=== PATIENT | female | born 1955 | race Caucasian/White ===

== ENCOUNTER 2019-06-02 17:59 | Emergency (ER) | payer MEDICARE, OTHER, SELFPAY ==
[2019-06-02 18:28] VITALS: BP 107/64; PULSE 88; RESP 16; TEMP 36.9; O2SAT 100
--- NOTE | 2019-06-02 18:37 | ED.GENADULT ---
HPI - General Adult General Chief complaint: Upper Respiratory Infection Stated complaint: cough headache fever Time Seen by Provider: 06/02/19 18:40 Source: patient Mode of arrival: ambulatory Limitations: no limitations History of Present Illness HPI narrative: This is a 64 years old female presents to office for an evaluation of cold symptoms for five days. Symptoms include cough, scratchy throat, intermittent dizziness when he coughing a lot. Symptoms usually worse at nighttime. She was exposed to strep concern she may have strep. Related Data Home Medications Medication Instructions Recorded Confirmed atorvastatin 20 mg PO DAILY 06/02/19 06/02/19 insulin detemir U-100 [Levemir 40 unit SUBCUT HS 06/02/19 06/02/19 U-100 Insulin] lisinopril 20 mg PO DAILY 06/02/19 06/02/19 meloxicam 15 mg PO DAILY 06/02/19 06/02/19 omeprazole 20 mg PO DAILY 06/02/19 06/02/19 pramipexole 0.125 mg PO HS 06/02/19 06/02/19 venlafaxine 75 mg PO DAILY 06/02/19 06/02/19 Allergies Allergy/AdvReac Type Severity Reaction Status Date / Time latex Allergy Unknown Unknown Verified 06/02/19 18:46 Review of Systems Review of Systems: Narrative: CONSTITUTIONAL: Report tactile fever EYES: Denies visual change ENT: Reports congestion, sore throat. Denies ears pain CARDIOVASCULAR: Denies chest pain, palpitations, edema. RESPIRATORY: Denies dyspnea, wheezing. Reports dry cough With intermittent phlegm GASTROINTESTINAL: Denies abdominal pain, nausea, vomiting, diarrhea. GENITOURINARY: Denies urinary symptoms or discharge SKIN: Denies rash MUSCULOSKELETAL: Denies acute back pain, joint pain, or myalgia. NEUROLOGIC: Denies numbness, or focal weakness. [facility] Past Medical History Medical History (Updated 06/02/19 @ 18:54 by CORAL Betts) Anxiety Diabetes mellitus, type II HLD (hyperlipidemia) HTN (hypertension) HX: breast cancer 2014 Rectal polyp Surgical History Surgical History (Updated 06/02/19 @ 18:39 by CORAL Betts) H/O section Social History Social History Smoking status: Never smoker Comments At time of signature, I agree with nursing past medical, surgical, social and family history. There is no relevant family history pertinent to the presenting complaint. Exam Narrative: Exam Narrative: GENERAL: This is a well-nourished, well-developed patient, in no apparent distress. EYES: Sclera clear/white. Vision is grossly intact. EARS: External ears normal, auditory canals clear and without drainage, TMs normal without perforation. Hearing grossly intact. NOSE: External nose normal with no obvious nasal discharge, nares without redness, no rhinorrhea. THROAT: Mucous membranes moist, posterior pharynx pink with drainage. NECK: Neck supple, non-tender without lymphadenopathy, masses or thyromegaly. CARDIOVASCULAR: Regular rate and rhythm without murmurs, gallops, or rubs. RESPIRATORY: Clear to auscultation;With occasional cough noted during examination. Breath sounds equal bilaterally. No wheezes, rales, or rhonchi. GASTROINTESTINAL: Abdomen soft, non-tender, nondistended. Bowel sounds are active. No hepato-splenomegaly, or palpable masses. No guarding. SKIN: warm, intact with no suspicious lesions or rash, good texture and turgor. NEURO: awake, alert, and oriented to person, place and time. There were no obvious focal neurologic abnormalities. Steady gait Radha Coma Scale Eye Opening: Spontaneous 4 [place] Coma Scale Motor: Obeys Commands 6 Radha Coma Scale Verbal: Oriented 5 Course Vital Signs Vital signs: Vital Signs Temperature 98.4 F 06/02/19 18:28 Pulse Rate 88 06/02/19 18:28 Respiratory Rate 16 06/02/19 18:28 Blood Pressure 107/64 06/02/19 18:28 Pulse Oximetry 100 06/02/19 18:28 Temperature 98.4 F 06/02/19 18:28 Pulse Rate 88 06/02/19 18:28 Respiratory Rate 16 06/02/19 18:28 Blood Pressure 107/
== END 2019-06-02 18:55 | disposition home or self-care (01) ==
PROVIDERS: Emergency Provider Nurse Practitioner; PCP Internal Medicine
DX: J06.9 Acute upper respiratory infection, unspecified (principal); F41.9 Anxiety disorder, unspecified; E11.9 Type 2 diabetes mellitus without complications; E78.5 Hyperlipidemia, unspecified; I10 Essential (primary) hypertension; Z85.3 Personal history of malignant neoplasm of breast
CPT/HCPCS: 87081; 87880; 99213; G0463

== ENCOUNTER 2022-01-10 16:47 | Emergency (ER) | payer MEDICARE, OTHER, SELFPAY ==
[2022-01-10 16:55] VITALS: BP 124/70; PULSE 90; RESP 16; TEMP 37.7; O2SAT 100
--- NOTE | 2022-01-10 17:21 | ED_ITS ---
HPI - Wound/Laceration General Chief Complaint: Upper Respiratory Infection Stated Complaint: Cough/Sore Throat Related Data Home Medications Medication Instructions Recorded Confirmed atorvastatin 20 mg tablet 20 mg PO DAILY 06/02/19 06/02/19 insulin detemir U-100 100 unit/mL 40 unit subcut 06/02/19 06/02/19 subcutaneous solution (Levemir U-100 Insulin) lisinopril 20 mg tablet 20 mg PO DAILY 06/02/19 06/02/19 meloxicam 15 mg tablet 15 mg PO DAILY 06/02/19 06/02/19 omeprazole 20 mg tablet,delayed 20 mg PO DAILY 06/02/19 06/02/19 release pramipexole 0.125 mg tablet 0.125 mg PO HS 06/02/19 06/02/19 venlafaxine 75 mg tablet,extended 75 mg PO DAILY 06/02/19 06/02/19 release 24 hr Allergies Allergy/AdvReac Type Severity Reaction Status Date / Time latex Allergy Unknown Unknown Verified 01/10/22 17:07 [facility] Past Medical History Medical History (Updated 06/03/19 @ 00:00 by Tara Mack) Anxiety Diabetes mellitus, type II HLD (hyperlipidemia) HTN (hypertension) HX: breast cancer 2014 Rectal polyp Surgical History Surgical History (Updated 06/02/19 @ 18:39 by CORAL Betts) H/O section Social History Social History Smoking status: Never smoker Course Vital Signs Vital signs: Vital Signs Temperature 99.8 F H 01/10/22 16:55 Pulse Rate 90 01/10/22 16:55 Respiratory Rate 16 01/10/22 16:55 Blood Pressure 124/70 01/10/22 16:55 Pulse Oximetry 100 01/10/22 16:55 Oxygen Delivery Room Air 01/10/22 16:55 Temperature 99.8 F H 01/10/22 16:55 Pulse Rate 90 01/10/22 16:55 Respiratory Rate 16 01/10/22 16:55 Blood Pressure 124/70 01/10/22 16:55 Pulse Oximetry 100 01/10/22 16:55 Oxygen Delivery Room Air 01/10/22 16:55 Discharge Plan Discharge Prescriptions: No Action atorvastatin 20 mg Tablet 20 mg PO DAILY meloxicam 15 mg Tablet 15 mg PO DAILY lisinopril 20 mg Tablet 20 mg PO DAILY Levemir U-100 Insulin 100 unit/mL Solution 40 unit SUBCUT HS pramipexole 0.125 mg Tablet 0.125 mg PO HS omeprazole 20 mg Tablet,Delayed Release (Dr/Ec) 20 mg PO DAILY venlafaxine 75 mg Tablet Extended Release 24hr 75 mg PO DAILY albuterol sulfate [ProAir HFA] 90 mcg/actuation HFA aerosol inhaler 1 puff INHALATION Q3-4H PRN (Reason: shortness of breath or wheezing) Qty: 18 0RF promethazine-DM 6.25-15 mg/5 mL syrup 5 ml PO Q4-6H PRN (Reason: cough) Qty: 120 0RF Follow-up/Referrals: Vito,MD Peter [Primary Care Provider] -
--- NOTE | 2022-01-10 17:30 | ED.URI ---
HPI - URI/Sore Throat General Chief Complaint: Upper Respiratory Infection Stated Complaint: Cough/Sore Throat Time Seen by Provider: 01/10/22 17:30 Source: patient and RN notes reviewed Mode of arrival: ambulatory Limitations: no limitations History of Present Illness HPI Narrative: 66-year-old female presents with concern for 10-day history of cough. Reports she has been coughing hard enough that is causing her throat to hurt. He she reports she has had been having allergy symptoms for approximately 10 days as well with stuffy nose and runny nose. Reports she has been taking allergy medication with no relief. She denies known sick contacts, fever, body aches, chills, sweats, shortness of breath MD elicited complaint: cough and sore throat Related Data Home Medications Medication Instructions Recorded Confirmed atorvastatin 20 mg tablet 20 mg PO DAILY 06/02/19 06/02/19 insulin detemir U-100 100 unit/mL 40 unit subcut HS 06/02/19 06/02/19 subcutaneous solution (Levemir U-100 Insulin) lisinopril 20 mg tablet 20 mg PO DAILY 06/02/19 06/02/19 meloxicam 15 mg tablet 15 mg PO DAILY 06/02/19 06/02/19 omeprazole 20 mg tablet,delayed 20 mg PO DAILY 06/02/19 06/02/19 release pramipexole 0.125 mg tablet 0.125 mg PO HS 06/02/19 06/02/19 venlafaxine 75 mg tablet,extended 75 mg PO DAILY 06/02/19 06/02/19 release 24 hr Allergies Allergy/AdvReac Type Severity Reaction Status Date / Time latex Allergy Unknown Unknown Verified 01/10/22 17:07 Review of Systems Review of Systems: CONSTITUTIONAL: Denies malaise, chills, sweats, or fever. EYES: Denies visual changes, redness, or discharge. ENT: Reports rhinorrhea, congestion, and sore throat. CARDIOVASCULAR: Denies chest pain, palpitations, or edema. RESPIRATORY: Reports persistent cough. Denies dyspnea. GASTROINTESTINAL: Denies abdominal pain, nausea, vomiting, diarrhea SKIN: Denies rash or itching. MUSCULOSKELETAL: Denies myalgia. NEUROLOGIC: Denies headache. All systems reviewed & are unremarkable except as noted in HPI and below PMFSH Past Medical History Medical History (Updated 01/10/22 @ 17:38 by Britney Larsen NP) Anxiety Diabetes mellitus, type II HLD (hyperlipidemia) HTN (hypertension) HX: breast cancer 2014 Rectal polyp Surgical History Surgical History (Updated 06/02/19 @ 18:39 by CORAL Betts) H/O section Social History Social History Smoking status: Never smoker Comments At time of signature, agree with nursing past medical, surgical, social and family history. There is no relevant family history pertinent to the presenting complaint Exam Narrative: GENERAL: Well-appearing, well-nourished, and in no acute distress. HEAD: Normocephalic EYES: PERRLA, conjunctivae clear ENT: Nares clear, turbinates edematous and erythematous. Mucous membranes moist. TM pearly gregg with dull light reflex bilaterally; no tragal tenderness. Oropharynx not erythematous without lesions. Tonsils not enlarged and without exudate, no drooling, no hoarseness, no trismus, uvula midline. NECK: Supple. No lymphadenopathy CHEST: Clear to auscultation, breath sounds equal. No wheezing, rhonchi, rales, or stridor. No respiratory distress, speaks in full sentences. Cough noted HEART: Regular rate and rhythm. No murmur heard. SKIN: Warm, dry, no rash. NEURO: Alert and oriented x3. PSYCH: Normal mood and affect Course Course Emergency Course: Patient is aware of diagnosis, understands and agrees to treatment plan. Anticipatory guidance given. Patient agrees to follow-up as directed and is aware of reasons to seek care at the emergency department. Portions of this record may have been created with voice recognition software Level of Care: Express Care Visit Vital Signs Vital signs: Vital Signs Temperature 99.8 F H 01/10/22 16:55 Pulse Rate 90 01/10/22 16:55 Respiratory Rate 16
== END 2022-01-10 17:48 | disposition home or self-care (01) ==
PROVIDERS: Emergency Provider Nurse Practitioner; PCP Internal Medicine
DX: J40 Bronchitis, not specified as acute or chronic (principal); E11.9 Type 2 diabetes mellitus without complications; E78.5 Hyperlipidemia, unspecified; I10 Essential (primary) hypertension; Z85.3 Personal history of malignant neoplasm of breast; F41.9 Anxiety disorder, unspecified; Z79.84 Long term (current) use of oral hypoglycemic drugs
CPT/HCPCS: 99213; G0463

== ENCOUNTER 2022-06-30 13:59 | Emergency (ER) | payer MEDICARE, OTHER, SELFPAY ==
[2022-06-30 14:07] VITALS: BP 136/60; PULSE 88; RESP 16; TEMP 37; O2SAT 100
[2022-06-30 14:13] VITALS: BP 136/60; PULSE 88; RESP 16; TEMP 37; O2SAT 100
--- NOTE | 2022-06-30 14:18 | ED.GENADULT ---
HPI - General Adult General Chief complaint: Back Pain/Injury Stated complaint: Back Pain Source: patient and RN notes reviewed History of Present Illness HPI narrative: 67-year-old female presents urgent care with at side. Patient states she has significant right lower back pain since Saturday. Denies any significant injury or cause for her back pain. Patient is concerned about possible kidney stone. Denies any leg pain, abdominal pain, nausea, vomiting, fevers, chills, incontinence of urine or stool, saddle anesthesia, or dysuria. Patient states she has Holter pain more with bending down or getting into the car. Patient is taking extra-strength with no relief. Some parts of this dictation were generated by voice recognition software and may contain typographical and/or grammatical inaccuracies. Related Data Home Medications Medication Instructions Recorded Confirmed atorvastatin 20 mg tablet 20 mg PO DAILY 06/02/19 06/30/22 lisinopril 20 mg tablet 20 mg PO DAILY 06/02/19 06/30/22 omeprazole 20 mg tablet,delayed 20 mg PO DAILY 06/02/19 06/30/22 release pramipexole 0.125 mg tablet 0.125 mg PO HS 06/02/19 06/30/22 venlafaxine 75 mg tablet,extended 75 mg PO DAILY 06/02/19 06/30/22 release 24 hr insulin degludec 100 See Rx Instructions .Route .COMPLEX 06/30/22 06/30/22 unit-liraglutide 3.6 mg/mL(3 mL) subcutaneous pen (Xultophy 100/3.6) Allergies Allergy/AdvReac Type Severity Reaction Status Date / Time latex Allergy Unknown Unknown Verified 06/30/22 14:09 Review of Systems Review of Systems: CONSTITUTIONAL: Denies fever, chills, or sweats. EYES: Denies visual changes, redness, or discharge. ENT: Denies otalgia and sore throat CARDIOVASCULAR: Denies chest pain, palpitations, or edema. RESPIRATORY: Denies cough or dyspnea. GASTROINTESTINAL: Denies abdominal pain, nausea, vomiting, or diarrhea. GENITOURINARY: Denies dysuria or hematuria. SKIN: Denies rash or itching. MUSCULOSKELETAL: Right lower back pain NEUROLOGIC: Denies headache, numbness, or weakness. [facility] Past Medical History Medical History (Updated 06/30/22 @ 14:28 by Mildred Meredith APRN) Anxiety Diabetes mellitus, type II HLD (hyperlipidemia) HTN (hypertension) HX: breast cancer 2014 Rectal polyp Surgical History Surgical History (Updated 06/02/19 @ 18:39 by CORAL Betts) H/O section Social History Social History Smoking status: Never smoker Comments At the time of my signature, I reviewed and agree with the nursing past medical, surgical, social, and family history. There is no relevant family history pertinent to the patient complaint. Exam Narrative: GENERAL: This is a well-nourished, well-developed patient, in no apparent distress. HEAD: normocephalic, atraumatic. EYES: PERRL. Sclera clear/white. Vision is grossly intact. EARS: External ears normal, auditory canals clear and without drainage, TMs normal without perforation. Hearing grossly intact. NOSE: External nose normal with no obvious nasal discharge, nares without redness, no rhinorrhea. THROAT: Mucous membranes moist, posterior pharynx clear. NECK: Neck supple, non-tender without lymphadenopathy, masses or thyromegaly. CARDIOVASCULAR: Regular rate and rhythm without murmurs, gallops, or rubs. RESPIRATORY: Clear to auscultation. Breath sounds equal bilaterally. No wheezes, rales, or rhonchi. GASTROINTESTINAL: Abdomen soft, non-tender, nondistended. Bowel sounds are active. No hepato-splenomegaly, or palpable masses. No guarding. SKIN: warm, intact with no suspicious lesions or rash, good texture and turgor. NEURO: awake, alert, and oriented to person, place and time. There were no obvious focal neurologic abnormalities. EXTREMITIES: No clubbing, cyanosis, or edema. No joint tenderness, effusion, or edema noted. BACK: Nontender without deformity or crepitance. No flank tenderness. C
== END 2022-06-30 14:30 | disposition home or self-care (01) ==
PROVIDERS: Emergency Provider Nurse Practitioner Family; PCP Internal Medicine
DX: S39.012A Strain of muscle, fascia and tendon of lower back, initial encounter (principal); E11.9 Type 2 diabetes mellitus without complications; E78.5 Hyperlipidemia, unspecified; I10 Essential (primary) hypertension; Z79.4 Long term (current) use of insulin; Z85.3 Personal history of malignant neoplasm of breast; X58.XXXA Exposure to other specified factors, initial encounter
CPT/HCPCS: 81003; 99213; G0463

== ENCOUNTER 2022-12-24 14:33 | Emergency (ER) | payer MEDICARE, OTHER, SELFPAY ==
[2022-12-24 14:42] VITALS: BP 110/70; PULSE 93; RESP 20; TEMP 36.7; O2SAT 100
--- NOTE | 2022-12-24 14:47 | ED.EYEPROB ---
HPI - Eye Problem General Chief complaint: Eye Problems Stated complaint: Left Eye Problem Source: patient and RN notes reviewed History of Present Illness HPI Narrative: 67 yo F presents to urgent care with complaints of left eye irritation and swelling. Pt states she has been having left lower lid redness for the last few days and today woke up with swelling under her left eye. Pt thought it was a stye at first. Pt reports some blurry vision in that eye. Denies any pain with EOM, fevers, chills, drainage from the eye. Does not wear contacts. Related Data Home Medications Medication Instructions Recorded Confirmed lisinopril 20 mg tablet 20 mg PO DAILY 06/02/19 12/24/22 omeprazole 20 mg tablet,delayed 20 mg PO DAILY 06/02/19 12/24/22 release venlafaxine 75 mg tablet,extended 75 mg PO DAILY 06/02/19 12/24/22 release 24 hr insulin degludec 100 See Rx Instructions .Route .COMPLEX 06/30/22 12/24/22 unit-liraglutide 3.6 mg/mL(3 mL) subcutaneous pen (Xultophy 100/3.6) meloxicam 15 mg tablet 15 mg PO DAILY 12/24/22 12/24/22 Allergies Allergy/AdvReac Type Severity Reaction Status Date / Time latex Allergy Unknown Unknown Verified 06/30/22 14:09 Review of Systems Review of Systems: CONSTITUTIONAL: Denies fever, chills, or sweats. EYES: Left eye irritation ENT: Denies otalgia and sore throat CARDIOVASCULAR: Denies chest pain, palpitations, or edema. RESPIRATORY: Denies cough or dyspnea. GASTROINTESTINAL: Denies abdominal pain, nausea, vomiting, or diarrhea. GENITOURINARY: Denies dysuria or hematuria. SKIN: Denies rash or itching. MUSCULOSKELETAL: Denies back pain, joint pain, or myalgia. NEUROLOGIC: Denies headache, numbness, or weakness. Pertinent positives per HPI. [facility] Past Medical History Medical History (Updated 12/24/22 @ 15:00 by Mildred Meredith APRN) Anxiety Diabetes mellitus, type II HLD (hyperlipidemia) HTN (hypertension) HX: breast cancer 2014 Rectal polyp Surgical History Surgical History (Updated 06/02/19 @ 18:39 by CORAL Betts) H/O section Social History Social History Smoking status: Never smoker Comments At the time of my signature, I reviewed and agree with the nursing past medical, surgical, social, and family history. There is no relevant family history pertinent to the patient complaint. Exam Narrative: GENERAL: This is a well-nourished, well-developed patient, in no apparent distress. HEAD: normocephalic, atraumatic. EYES: Sclera clear/white. Left lowe conjunctiva injected and lower lid slightly edematous and erythremic. Lower, left sided, periorbital swelling. EARS: External ears normal, auditory canals clear and without drainage, TMs normal without perforation. Hearing grossly intact. NOSE: External nose normal with no obvious nasal discharge, nares without redness, no rhinorrhea. THROAT: Mucous membranes moist, posterior pharynx clear. NECK: Neck supple, non-tender without lymphadenopathy, masses or thyromegaly. CARDIOVASCULAR: Regular rate RESPIRATORY: No respiratory distress SKIN: warm, intact with no suspicious lesions or rash, good texture and turgor. NEURO: awake, alert, and oriented to person, place and time. There were no obvious focal neurologic abnormalities. Course Course Level of Care: Express Care Visit Vital Signs Vital signs: Reviewed MDM - Eye Problem MDM Narrative Medical decision making narrative: You have been given a prescription for eye ointment. Use the eye ointment as instructed. If you are not better in two (2) days, you need to follow up with an occupational therapy supervisor. Do not rub the eye or put anything else in the eye, this can cause abrasions (scratches) on the eye or lead to vision loss. Also it is important not to touch the tube or tip of ointment to the eye, as this can cause further infection. Wash your hands very well before instilling th
== END 2022-12-24 15:04 | disposition home or self-care (01) ==
PROVIDERS: Emergency Provider Nurse Practitioner Family; PCP Internal Medicine
DX: H01.005 Unspecified blepharitis left lower eyelid (principal); E11.9 Type 2 diabetes mellitus without complications; Z79.4 Long term (current) use of insulin; E78.5 Hyperlipidemia, unspecified; I10 Essential (primary) hypertension; Z85.3 Personal history of malignant neoplasm of breast; F41.9 Anxiety disorder, unspecified
CPT/HCPCS: 99213; G0463

== ENCOUNTER 2023-11-04 16:08 | Emergency (ER) | payer MEDICARE, OTHER, SELFPAY ==
[2023-11-04 16:15] VITALS: BP 121/63; PULSE 80; RESP 20; TEMP 36.8; O2SAT 100
--- NOTE | 2023-11-04 16:21 | ED.URI ---
HPI - URI/Sore Throat General Chief Complaint: Upper Respiratory Infection Stated Complaint: Cough Time Seen by Provider: 11/04/23 16:28 Source: patient, RN notes reviewed and old records reviewed Mode of arrival: ambulatory Limitations: no limitations History of Present Illness HPI Narrative: 68-year-old female presents to the [facility] with complaints of a cough that started on the 29 of October, 5 days ago. Patient reports that she took 1 dose of Benadryl and it did not help. Took 2 sinus pills which has not helped her symptoms. Still having a cough, congestion, scratchy throat. Onset (ago): day(s) (5) Related Data Home Medications Medication Instructions Recorded Confirmed omeprazole 20 mg tablet,delayed 20 mg PO DAILY 06/02/19 11/04/23 release insulin degludec 100 See Rx Instructions .Route .COMPLEX 06/30/22 11/04/23 unit-liraglutide 3.6 mg/mL(3 mL) subcutaneous pen (Xultophy 100/3.6) ezetimibe 10 mg tablet 10 mg PO DAILY 11/04/23 11/04/23 lisinopril 5 mg tablet 5 mg PO DAILY 11/04/23 11/04/23 venlafaxine 37.5 mg 37.5 mg PO DAILY 11/04/23 11/04/23 capsule,extended release 24 hr Allergies Allergy/AdvReac Type Severity Reaction Status Date / Time latex Allergy Unknown Unknown Verified 11/04/23 16:24 Review of Systems Review of Systems: All systems reviewed & are unremarkable except as noted in HPI and below Constitutional: Constitutional: Reports as per HPI Eyes: Eyes: Reports no additional eye complaints ENT: Reports as per HPI Cardiovascular: Cardiovascular: Reports no additional cardiovascular complaints, Denies chest pain and Denies dyspnea Respiratory: Respiratory: Reports as per HPI, Denies chest congestion, Reports cough and Denies dyspnea Gastrointestinal: Gastrointestinal: Reports no additional gastrointestinal complaints, Denies abdominal pain, Denies nausea and Denies vomiting Musculoskeletal: Musculoskeletal: Reports no additional musculoskeletal complaints Integumentary/Breasts: Skin/Breast: Reports system reviewed and no additional complaints, except as docu Neurologic: Reports system reviewed and no additional complaints, except as documented Psychiatric: Psychiatric: Reports no additional psychiatric complaints Allergic/Immunologic: Allergic/Immunologic: Reports no additional allergic/immunologic complaints PMFSH Past Medical History Medical History (Updated 11/05/23 @ 00:00 by Tara Mack) Anxiety Diabetes mellitus, type II HLD (hyperlipidemia) HTN (hypertension) HX: breast cancer 2014 Rectal polyp Surgical History Surgical History (Updated 06/02/19 @ 18:39 by CORAL Betts) H/O section Social History Social History Smoking status: Never smoker Comments At the time of my signature, I reviewed and agree with the nursing past medical, surgical, social, and family history. There is no relevant family history pertinent to the patient complaint. Exam Const: General: cooperative, healthy appearing, comfortable, no acute distress, well developed, alert and well nourished Nutritional Appearance: well nourished Orientation/consciousness: patient oriented x3 Limitations: no limitations HENMT: Head: normal to inspection Ears: hearing grossly normal bilaterally, external ears normal, TM's normal bilaterally, EAC's normal, mastoids normal and no periauricular adenopathy Face/Nose/Sinus: Normal external nose present, Normal nares present, Normal nasal mucous membranes and turbinates present, normal facial exam and face symmetric Face and sinus: normal facial exam and face symmetric Throat: posterior oropharynx normal, uvula midline, postnasal drainage and no uvular edema Eyes: General: appearance normal, both eyes and all related structures Alignment and Position: alignment normal Periorbital: periorbital findings normal Pupils: Equal, round and reactive pupils present EOM: EOMs intact
[2023-11-04 16:59] LABS: EDINFLUASCREEN Negative; EDINFLUBSCREEN Negative
== END 2023-11-04 17:02 | disposition home or self-care (01) ==
PROVIDERS: Emergency Provider Nurse Practitioner
DX: U07.1 COVID-19 (principal); R09.82 Postnasal drip; E11.9 Type 2 diabetes mellitus without complications; E78.5 Hyperlipidemia, unspecified; I10 Essential (primary) hypertension; Z85.3 Personal history of malignant neoplasm of breast; F41.9 Anxiety disorder, unspecified
CPT/HCPCS: 87426; 87804; 99213; G0463

== ENCOUNTER 2024-03-30 14:18 | Emergency (ER) | payer MEDICARE, OTHER, SELFPAY ==
--- NOTE | ~2024-03-30 | XR_ITS ---
EXAMINATION: XR chest 2V DATE: 03/30/2024 15:05 INDICATION: Cough. TECHNIQUE: Frontal and lateral views of the chest were obtained. COMPARISON: None. FINDINGS: There is no pneumonia, pleural effusion, or pneumothorax. The heart size is normal. There a re surgical clips in right breast and right axilla. IMPRESSION: 1. No acute cardiopulmonary disease. Reviewed, dictated and finalized at location A. N ART CURATOR
[2024-03-30 14:26] VITALS: BP 122/62; PULSE 90; RESP 20; TEMP 37.1; O2SAT 100
--- NOTE | 2024-03-30 14:44 | ED_ITS ---
HPI - URI/Sore Throat General Chief Complaint: Upper Respiratory Infection Stated Complaint: Cough Source: patient Mode of arrival: ambulatory Limitations: no limitations History of Present Illness HPI Narrative: 69 y/o female presented for c/o cough for one week. Endorses the cough causes rib pain, headaches, pain in throat, and feeling like she might vomit. Otherwise denies any associated symptoms. Related Data Home Medications Medication Instructions Recorded Confirmed omeprazole 20 mg tablet,delayed 20 mg PO DAILY 06/02/19 03/30/24 release insulin degludec 100 See Rx Instructions .Route .COMPLEX 06/30/22 03/30/24 unit-liraglutide 3.6 mg/mL(3 mL) subcutaneous pen (Xultophy 100/3.6) ezetimibe 10 mg tablet 10 mg PO DAILY 11/04/23 03/30/24 lisinopril 5 mg tablet 5 mg PO DAILY 11/04/23 03/30/24 venlafaxine 37.5 mg 37.5 mg PO DAILY 11/04/23 03/30/24 capsule,extended release 24 hr meclizine 12.5 mg tablet 12.5 mg PO TID PRN Vertigo 03/13/24 03/30/24 meloxicam 7.5 mg tablet 7.5 mg PO DAILY 03/13/24 03/30/24 Allergies Allergy/AdvReac Type Severity Reaction Status Date / Time latex Allergy Unknown Unknown Verified 03/30/24 14:28 pravastatin AdvReac Intermediate leg cramps Verified 03/30/24 14:28 Review of Systems Review of Systems: CONSTITUTIONAL: Denies body aches, fever, chills, or sweats. EYES: Denies visual changes, redness, or discharge. ENT: Denies rhinorrhea, congestion, sore throat, or otalgia. CARDIOVASCULAR: Denies chest pain, palpitations, or edema. RESPIRATORY: Reports cough, denies sob, wheezing. GASTROINTESTINAL: Denies abdominal pain, nausea, vomiting, or diarrhea. SKIN: Denies rash MUSCULOSKELETAL: reports rib pain NEUROLOGIC: Denies headache, numbness, tingling, or weakness. All systems reviewed & are unremarkable except as noted in HPI and below PMFSH Past Medical History Medical History Anxiety Diabetes mellitus, type II HLD (hyperlipidemia) HTN (hypertension) HX: breast cancer 2014 Rectal polyp Surgical History Surgical History H/O section H/O lumpectomy Social History Social History Smoking status: Never smoker Second hand tobacco smoke exposure: Yes (As a child) Spiritual care concerns: No Comments At time of signature, I have reviewed and agree with nursing past medical, surgical, social and family history unless otherwise noted. Please see nursing chart for further information. There is no relevant family history pertinent to the presenting complaint Exam Narrative: GENERAL: Well-appearing, in no acute distress. EYES: EOMI. No redness or drainage. Conjunctivae normal. ENT: Mucous membranes pink and moist. No rhinorrhea. TMs normal bilaterally. Throat normal. Uvula midline. NECK: Normal AROM. Supple. CHEST: No respiratory distress. lungs clear to all damon. HEART: Regular rate and rhythm. No murmur appreciated. ABDOMEN: Soft, nontender, nondistended, normal active bowel sounds. EXTREMITIES: Normal range of motion. No edema. SKIN: Warm, dry, no rash. Capillary refill normal. Normal skin turgor. NEURO: Alert and oriented x3. Gait steady. PSYCH: Normal affect. Course Course Emergency Course: Patient is aware of diagnosis, understands and agrees to treatment plan. Anticipatory guidance given. Patient agrees to follow-up as directed and is aw are of reasons to seek care at the emergency department. Portions of this record may have been created with voice recognition software Level of Care: Express Care Visit Vital Signs Vital signs: Vital Signs Temperature 98.8 F 03/30/24 14:26 Pulse Rate 90 03/30/24 14:26 Respiratory Rate 20 03/30/24 14: Blood Pressure 122/62 03/30/24 14:26 Pulse Oximetry 100 03/30/24 14:26 Oxygen Delivery Room Air 03/30/24 14:26 Temperature 98.8 F 03/30/24 14:26 Pulse Rate 90 03/30/24 14:26 Respiratory Rate 20 03/30/24 14:26 Blood Pressure 122/62 03/30/24 14:26 Pulse Oximetry 100 03/30/24 14:26 Oxygen Delivery Room Air 03/30/24 14:26 MDM - URI/Sore Throat MDM Narrative Medical decision making narrative: Discussed physical exam findings and CXR. Advised supportive measures and signs/symptoms to go to the ER. Pt is appropriate for outpt treatment and f/u. Differential Diagnosis Differential diagnosis: Likely upper respiratory infection, sinusitis, viral infection and bronchitis Imaging Data Radiologist's impression: Patient: Nathalie Bhatia : 1955 MR#: [id number] Age: 69 Acct:[id number] Loc: [facility] ADM Date: 03/30/24Attending Dr: Ordering Physician: Cassia Sandoval APRN Date of Service: 03/30/24 Procedure(s): XR chest 2V Accession Number(s): [id number] cc: Cassia Sandoval APRN~ EXAMINATION: XR chest 2V DATE: 03/30/2024 15:05 INDICATION: Cough. TECHNIQUE: Frontal and lateral views of the chest were obtained. COMPARISON: None. FINDINGS: There is no pneumonia, pleural effusion, or pneumothorax. The heart size is normal. There are surgical clips in right breast and right axilla. IMPRESSION: 1. No acute cardiopulmonary disease. Discharge Plan Discharge Clinical Impression: Bronchitis Patient Disposition: Home, Self-Care Condition: Stable Instructions: Antibiotic Form, Acute Bronchitis (ED) Additional Instructions: Acute bronchitis can be contagious because it is usually caused by infection with a virus or bacteria. It is usually for a few days but you can be contagious for up to one week. Avoid crowds until you do not have a fever and symptoms are improved Take medication as directed Recommend Flonase spray and Zyrtec (or Claritin/Rachel) over the counter Cough syrup may cause drowsiness; avoid driving or take it at night time. Tylenol 1000mg every 8 hours as needed for pain Symptomatic treatment includes: rest, fluids, and increase humidity of the air at home. Follow up with your primary care provider as needed in 1 week Go to the ER for worsening symptoms or concerns Prescriptions: New prednisone 20 mg tablet 40 mg PO DAILY 5 Days Qty: 10 0RF benzonatate 200 mg capsule 200 mg PO TID PRN (Reason: cough) Qty: 20 0RF No Action omeprazole 20 mg Tablet,Delayed Release (Dr/Ec) 20 mg PO DAILY lisinopril 5 mg tablet 5 mg PO DAILY ezetimibe 10 mg tablet 10 mg PO DAILY venlafaxine 37.5 mg capsule,extended release 24hr 37.5 mg PO DAILY Xultophy 100/3.6 100 unit-3.6 mg /mL (3 mL) insulin pen See Rx Instructions .ROUTE .COMPLEX Rx Instructions: PRESCRIBED meloxicam 7.5 mg Tablet 7.5 mg PO DAILY meclizine 12.5 mg Tablet 12.5 mg PO TID PRN (Reason: Vertigo) Follow-up/Referrals: PHYSICIAN NOT ON STAFF,NONSTAFF [Primary Care Provider] -
== END 2024-03-30 15:30 | disposition home or self-care (01) ==
PROVIDERS: Emergency Provider Nurse Practitioner Family
DX: J40 Bronchitis, not specified as acute or chronic (principal); E11.9 Type 2 diabetes mellitus without complications; E78.5 Hyperlipidemia, unspecified; I10 Essential (primary) hypertension; Z79.4 Long term (current) use of insulin; Z79.1 Long term (current) use of non-steroidal anti-inflammatories (NSAID)
CPT/HCPCS: 71046; 99213; G0463

== ENCOUNTER 2024-05-29 15:55 | Emergency (ER) | payer MEDICARE, OTHER, SELFPAY ==
--- OUTSIDE RECORDS SUMMARY | 2024-05-29 15:58 | XMS_ITS | Clinical Summary ---
Author Organization [facility] [employer] Address [address] [place] [address] Care Team Providers Care Maternal Fetal Physician Name Role Phone Peter Padron MD Primary Care Provider [phone] Source Comments [facility],non-owned Affiliates and Associated Physician Practices is amultiple site organization consisting of ambulatory clinics and hospital sitesin [place], [place], [place] and [place]. This disclosure is being madepursuant to the Care Everywhere program and may not contain all information available regarding this patient. Last updated 18.[facility] Allergies No known active allergies Medications * Be aware that medications may not be up to date on this document. Alwaysverify current medications with the patient. Medication Sig Dispensed Refills Start Date End Date Status insulin glargine (LANTUS) injection Inject 45 Units subcutaneously at bedtime. Active rosuvastatin (CRESTOR) 40 MG tablet Take 40 mg by mouth once daily. Active omeprazole (PRILOSEC OTC) 20 MG tablet Take 20 mg by mouth daily before breakfast. Active solifenacin (VESICARE) 5 MG tablet Take 5 mg by mouth once daily. Active escitalopram (LEXAPRO) 20 MG tablet Take 20 mg by mouth once daily. Active LISINOPRIL PO Take 10 mg by mouth. A ctive cefUROXime (CEFTIN) 500 MG tablet Take 500 mg by mouth every 12 hours. Active Family History Medical History Relation Name Comments Arthritis - Rheumatoid Mother Hypertension Mother Migraine Sister 2 Relation Name Status Comments Brother Alive Father Alive Mother Alive Sister 1 Alive Sister 2 Social History Tobacco Use Types Packs/Day Years Used Date Smoking Tobacco: Never Alcohol Use Standard Drinks/Week Comments No 0 (1 standard drink = 0.6 oz pur e alcohol) Sex and Gender Information Value Date Recorded Sex Assigned at Not on file Gender Identity Not on file Sexual Orientation Not on file Last Filed Vital Signs Vital Sign Reading Time Taken Comments Blood Pressure - - Pulse - - Temperature - - Respiratory Rate - - Oxygen Saturation - - Inhaled Oxygen Concentration - - Weight 74.8 kg (165 lb) 05/12/2012 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 Height 154.9 cm (5' 1 ) 05/12/2012 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 Body Mass Index 31.18 05/12/2012 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 Plan of Treatment Health Maintenance Due Date Last Done Comments BONE DENSITY TESTING 1955 COLOGUARD (AGES 45-75) - COL ON CA SCREENING 1955 COLON MONITORING 1955 COLONOSCOPY - COLON CA SCREENING 1955 CT COLONOGRAPHY - COLON CA SCREENING 1955 Colorectal Cancer Screening 1955 FIT - COLON CA SCREENING 1955 FLEX SIG - COLON CA SCREENING 1955 MAMMOGRAM 1955 HEPATITIS C SCREENING 01/29/1971 DTAP/TDAP/TD VACCINES (1 - Tdap) 02/03/1972 PNEUMOCOCCAL VACCINE 50+ (1 of 1 - PCV) 2003 ZOSTER VACCINE (1 of 2) 2003 COVID-19 VACCINE ( - 2023-2 5 season) 2023 INFLUENZA VACCINE (#1) 2023 DEPRESSION SCREENING 04/29/2024 Respiratory Syncytial Virus (RSV) Vaccine Pt: or over 60 yrs (1 - 1-dose 75+ series) 02/03/2028 HEPATITIS B VACCINE Aged Out No longe r eligible based on patient's age to complete this topic HIB VACCINE Aged Out No longer eligi ble based on patient's age to complete this topic HPV VACCINE Aged Out No longer eligi ble based on patient's age to complete this topic MENINGOCOCCAL (Group B) VACCINE Aged Out No longer eligible based on patient's age to complete this topic MENINGOCOCCAL VACCINE Aged Out No rodríguez isabel eligible based on patient's age to complete this topic Care Teams Maternal Fetal Physician Relationship Specialty Start Date End Date Peter Padron MD PCP - General Internal Medicine 01/25/12
--- OUTSIDE RECORDS SUMMARY | 2024-05-29 15:58 | XMS_ITS | Referral Summary ---
Author Organization [facility] [employer] Address [address] [place] [address] Care Team Providers Care Medical Assistant Cardiology Name Role Phone Peter Padron MD Primary Care Provider [phone] Source Comments [facility] [employer],non-owned Affiliates and Associated Physician Practices is amultiple site organization consisting of ambulatory clinics and hospital sitesin [place], [place], [place] and [place]. This disclosure is being madepursuant to the Care Everywhere program and may not contain all information available regarding this patient. Last updated 18[employer] [email or web address] [employer] Allergies No known active allergies Medications * [...] mg by mouth every 12 hours. 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
--- OUTSIDE RECORDS SUMMARY | 2024-05-29 15:58 | XMS_ITS | Encounter Summary ---
Author Organization [facility] Address [address] [place] [address] Care Team Providers Care Electro Mechanical Technologist Name Role Phone Peter Padron MD Primary Care Provider Encounter Details Date Type Department Care Team (Late st Contact Info) Description 01/08/2014 Telephone [facility] Radiation Oncology Preet Recio [address] [place] [address] Tiffanie Collins RN Social History Tobacco Use Types Packs/Day Years Used Date Smoking Tobacco: Never Smokeless Tobacco: Never Alcohol Use Standard Drinks/Week Comments Yes 0 (1 standard drink = 0.6 oz pur e alcohol) rare Comments No Sex and Gender Information Value Date Recorded Sex Assigned at Not on file Legal Sex Female 3:51 PM CDT Gender Identity Not on file Sexual Orientation Not on file Occupation Industry Job Start Date Job End Date Not on file Not on file Not on file Not on file documented as of this encounter Plan of Treatment Upcoming Encounters Date Type Department Care Team (Late st Contact Info) Description 09/15/2024 10:45 AM CDT Appointment [facility] Preet Recio [address] [place] [address] [place] [address] [place] [address] 09/15/2024 11:45 AM CDT Office Visit [facility] Breast Surgery Preet Recio [address] [place] [address] [place] [address] [address] [facility] [address] [place] [address] documented as of this encounter Visit Diagnoses Not on filedocumented in this encounter Care Teams Electro Mechanical Technologist Relationship Specialty Start Date End Date Peter Padron MD [address] [place] [place] [id number] PCP - General Internal Medicine 10/21/13 01/26/24 documented as of this encounter
--- OUTSIDE RECORDS SUMMARY | 2024-05-29 15:58 | XMS_ITS | Continuity of Care Document ---
Author Organization [facility] Address [address] [facility] [address] [place] [address] Phone Care Team Providers Care Scissors Grinder Name Role Phone David OD OD, [place] Unavailable Unavai lable Allergies, Adverse Reactions, Alerts Substance Reaction Status Criticality No Known Allergies Active No Inform ation Medications Medication Instructions Dosage Effective Dates (start - stop) Status Comments prednisolone 1 %-gatifloxacin 0.5 %-bromfenac 0.075 % eye drops,suspen 1 drop in operative eye TID, starting 4 hours after surgery and use for 2 weeks. - Active 7ml replace acetate with phosphate . prednisolone sodium phosphate 1 %-bromfenac 0.075 % eye drops instill 1 drop twice a day in operative eye starting 2 weeks after surgery and use for 2 weeks - Active Restasis 0.05 % eye drops in a dropperette instill 1 drop by ophthalmic route every 12 hours into affected eye(s) 1.00 drop - Active if a 30 day supply works better for the patients insurance it is okay to swith. If it's not covered at all the patient may switch to otc artifical tears. Systane,Blink,R etaine are good repalcements. ezetimibe 10 mg tablet take 1 tablet by oral route every day 10 MG - Active Humalog Mix 50-50 (U-100) Insulin 100 unit/mL subcutaneous suspension inject by subcutaneous route as per insulin protocol 0.00 - Active lisinopril 2.5 mg tablet take 1 tablet by oral route every day 2.5 MG - Active omeprazole 10 mg capsule,delayed release take 2 capsule by oral route every day before a meal 20 MG - Active pramipexole 0.25 mg tablet take 1 tablet by oral route 3 times every day 0.25 MG - Active Tresiba FlexTouch U-100 insulin 100 unit/mL (3 mL) subcutaneous pen inject by subcutaneous route as per insulin protocol 0.00 - Active meloxicam 7.5 mg tablet take 1 tablet by oral route every day 7.5 MG - Active aspirin 81 mg tablet,delayed release take 1 tablet by oral route every day 81 MG - Active Calcium 500 500 mg calcium (1,250 mg) tablet - Active multivitamin capsule take 1 capsule by oral route every day - Active Procedures Procedure Date POSTOP FOLLOW-UP VISIT POSTOP FOLLOW-UP VISIT CATARACT SURGERY, COMPLEX POSTOP FOLLOW-UP VISIT POSTOP FOLLOW-UP VISIT CATARACT SURG W/IOL, 1 STAGE TORIC IOL COSMETIC NMN OFFICE/OUTPATIENT VISIT, [facility] OPHTHALMIC BIOMETRY OPHTHALMIC BIOMETRY PHARMACY 2 EYES Advance Directives Directive Yes / No Effective Date File Name No Information Encounters Encounter Description Practice Location Reason(s) For Visit Diagnoses Date Provider Providers Copied on Encounter [facility], [address] [place] [address], [id number], tel:[phone] OPH CONSULT DIMPLE KILGORE 1 week PO OD (chief complaint) Pseudoaphakia 1 Derheimer OD [place]. [address], [address], [place], [place], [id number], [place]. tel:[phone] Referring Provider: Peter Padron MD, [address] [place] [address] [address], [place], [address]. tel:[phone] [facility], [address] [place] [address], [id number], tel:[phone] OPH CONSULT DIMPLE KILGORE Post-Op (chief complaint) Presence of intraocular lens 1 [place] Cardoso. [address], [address], [place], [place], [id number], [place]. tel:[phone] Referring Provider: Peter Padron MD, [address], [place], [address]. tel:[phone] [facility], [address] [place] [address], [id number], [place] tel:[phone] [facility] [place] No Information 1 Cuba Cardoso. [address], [address], [place], [place], [id number], [place]. tel:[phone] Referring Provider: Walker Ambrosio, [address], [place], [place], [id number]. tel:[phone] [facility], [address] [place] [address], [id number], [place] tel:[phone] OPH CONSULT DIMPLE KILGORE post op (chief complaint) Pseudoaphakia 1 Derheimer OD [place]. [address], [place], [place], [id number], [place]. tel:[phone] Referring Provider: Peter Padron MD, [address], [place], [address]. tel:[phone] [facility], [address] [place] [address], [id number], [place] tel:[phone] OPH CONSULT DIMPLE KILGORE Post-Op (chief complaint) Age-related nuclear cataract, bilateral 1 [place] Cardoso. [address], [id number], [place]. tel:[phone] Referring Provider: Peter Padron MD, [address], [place], [address]. tel:[phone] [facility], [address] [place] [address], [id number], [place] tel:[phone] [facility] No Information 1 Cuba Cardoso. [address], [place], [place], [id number], [place]. tel:[phone] Referring Provider: Walker Ambrosio, [address], [place], [place], [id number]. tel:[phone] [facility], [address] [place] [address], [id number], tel:[phone] OPH CONSULT DIMPLE KILGORE No Information 1 [place] Cardoso. [address], [address], [place], [place], [id number], [place]. tel:[phone] Referring Provider: Peter Padron MD, [address] [facility] [address], [place], [address]. tel:[phone] OFFICE/OUTPA TIENT VISIT, [facility], [address] [place] [address], [place], [place], [id number], tel:[phone] OPH CONSULT DIMPLE KILGORE Cataract eval (chief complaint) Diabetic eye exam (chief complaint) Age-related nuclear cataract, bilateralDry eye syndrome of bilateral lacrimal glandsDermatoch alasis of left upper eyelidSquamous blepharitis left upper eyelidType 2 diabetes mellitus without complication, unspecified whether mcc insulin use 1 [place] Cardoso. [address], [place], [place], [id number], [place]. tel:[phone] Referring Provider: Peter Padron MD, [address] [facility] [address], [place], [address]. tel:[phone] Family History Family Member Type Diagnosis Age At Onset No Information Payers Payer name Insurance type Covered alliance party ID Authoriza tion(s) No Information Social History Type Description Quantity Date Captured Comments Sex Female Smoking Status No Information Chief Complaint And Reason For Visit From encounter dated '07/21/2020 15:40'. 1 week PO OD (chief complaint). Description: 1 week PO OD Standard distance She continues to use Pred. Gati. Brom. TID OD. She states her VA is great. Eyes are comfortable OU. 3 week PO OS Standard distance She continues to use Pred. Brom BID OS She was referred by Dr. Man STODDARD Plan Of Treatment Date Type Action Status Referral Ordered: Blanca Conway -[facility] Providers : Quality Assurance Supervisor Final (related to Pseudoaphakia) ordered Referral Referred To: Blanca Conway [address] [place], [phone] Ordered: Referrals: [facility] Providers : Quality Assurance Supervisor Final. Blanca Conway ordered Referral Referred To: Blanca Conway [address] [place], [phone] Ordered: Referrals: [facility] Providers : Quality Assurance Supervisor Final. Blanca Conway. Evaluate and treat ordered History Of Present Illness Encounter Date Complaint History Of Prese nt Illness 1 week PO OD 1 week PO OD Sta ndard distance She continues to use Pred. Gati. Brom. TID OD. She states her VA is great. Eyes are comfortable OU. 3 week PO OS Standard distance She continues to use Pred. Brom BID OS She was referred by Dr. Man STODDARD Post-Op The status of th e patient has improved. The patient reports no pain. Additional information: No pain or discomfort. She feels her vision has improved a lot. She continues her drops as prescribed. Standard Distance with ORA. post op The 65 year old female presents for one cat post op, 1st eye, STD IOL. Patient states that she was supposed to have a Toric IOL and paid for it, but Dr. katz found she didn't need and that we'd save the IOL for the other eye, and if not, we'll issue a refund. Post-Op The status of th e patient has improved. The patient reports pain. Additional information: Patient states her vision has improved. She feels her eye itches and has a FBS. Slight pain. She continues Rtdg-Vvfc-Ljjd TID OS. OD scheduled 07/13/2020. TORIC/ORA DISTANCE. She was referred by ARLYN- Dr. Conway. Diabetic eye exam The patient is present for evaluation of Diabetic eye exam in the right eye and left eye. It occurs all the time. It affects VA not affected. The condition is stable. A1C: 9.5 x 2 months agoBS: 103 todayDrLadan Padron Cataract eval The 65 year old female presents for evaluation of Cataract eval in the right eye and left eye. It occurs all the time. It affects both near and far vision. The condition is significant. Pt c/o vision OS >OD is gradually getting worse. PT has difficulty seeing small prints while reading and watching TV. Pt denies eye pain/discomfort today. PT was told that she has cataract in both eyes. PT reports seeing glare/halos when looking at the headlight. Ref by Dr. Man RAWLS 20/100 OD, 20/LP OS Instructions Date Instruction Additional Infor mation Impression/Plan Related to Pseud oaphakia Impression/Plan Related to Prese nce of intraocular lens Impression/Plan Related to Pseud oaphakia Impression/Plan Related to Age-r elated nuclear cataract, bilateral Impression/Plan Related to Type 2 diabetes mellitus without complication, unspecified whether mcc insulin use Impression/Plan Related to Squam ous blepharitis left upper eyelid Impression/Plan Related to [place] tochalasis of left upper eyelid Impression/Plan Related to Dry e ye syndrome of bilateral lacrimal glands Impression/Plan Related to Age-r elated nuclear cataract, bilateral Assessments Type Assessment Date assessment Pseudoaphakia
--- OUTSIDE RECORDS SUMMARY | 2024-05-29 15:58 | XMS_ITS | Encounter Summary ---
Author Organization [facility] Address [address] [facility] [address] [place] [address] Care Team Providers Care Bar Roller Name Role Phone Peter Padron MD Primary Care Provider [phone] Peter Padron MD Primary Care Provider [phone] Peter Padron MD Primary Care Provider [phone] Nicki Monk [facility] Unavailable [phone] Kinjal Domingo NP Primary Care Provider [phone] Encounter Details Date Type Department Care Team (Late st Contact Info) Description 10/06/2010 Orders Only [facility] [facility] [address] [place] [address] Peter Padron MD [address] [address] Social History Tobacco Use Types Packs/Day Years Used Date Smoking Tobacco: Never Assessed Comments Unknown Sex and Gender Information Value Date Recorded Sex Assigned at Not on file Legal Sex Female 7:03 PM KST OPERATOR Gender Identity Not on file Sexual Orientation Not on file documented as of this encounter Plan of Treatment Upcoming Encounters Date Type Department Care Team (Late st Contact Info) Description 06/29/2024 11:30 AM KST OPERATOR Hospital Encounter [facility] [address] [place] [address] Herrera Caceres, DO [address] [facility] [address] [place] [address] 06/29/2024 11:30 AM KST OPERATOR - 06/29/2024 12:00 PM KST OPERATOR Surgery [facility] [address] [place] [address] Herrera Caceres DO [address] [facility] [address] [place] [address] COLONOSCOPY Scheduled Procedures Name Priority Associated Diagnoses Date/Ti me COLONOSCOPY Hx of colonic polyps 06/29/2024 11:30 AM KST OPERATOR documented as of this encounter Procedures Procedure Name Priority Date/Time Associated Diagnosis Comments COLONOSCOPY Routine 10/06/2010 documented in this encounter Results * Colonoscopy (10/06/2010) Anatomical Region Laterality Modality Other us Historical Provider ENDOSCOPY PROCEDURES Shirley l Result documented in this encounter Visit Diagnoses Not on filedocumented in this encounter Additional Health Concerns Infection Onset Date Last Indicated Resolved Time COVID: Suspected 01/13/2021 01/13/2021 01/13/2021 3:19 PM CDT COVID: Suspected 04/24/2022 04/24/2022 04/24/2022 11:58 AM KST OPERATOR COVID: Suspected 12/17/2022 12/17/2022 12/17/2022 5:26 PM CDT documented as of this encounter Care Teams Bar Roller Relationship Specialty Start Date End Date Peter Padron MD PCP - General 07/27/16 08/25/23 Peter Padron MD PCP - General 10/31/12 07/26/16 Peter Padron MD PCP - General 09/23/09 10/30/12 Kinjal Domingo NP [address] [facility] [address] [place] [address] PCP - General Family Medicine 08/26/23 Nicki Monk, [employer] TENDER [address] [place] [address] [address] [place] [id number] Pitch Worker 05/04/20 06/01/20 documented as of this encounter
--- OUTSIDE RECORDS SUMMARY | 2024-05-29 15:58 | XMS_ITS | Clinical Summary ---
Author Organization [facility] Address [address] [place] [address] Phone Care Team Providers Care Veterinary Bacteriologist Name Role Phone Unavailable Primary Care Provider Unavailabl e Allergies Active Allergy Reactions Criticality Noted Date Comments Adhesive Rash Low 10/21/2013 Latex Rash Low 10/21/2013 Nxkzuen-Hct-Rkf Reductase Inhibitors Muscle Pain Medium 01/29/2023 Medications lisinopril (PRINIVIL) 20 mg tablet Take 5 mg by mouth daily. 09/13/2013 Active omeprazole (PRILOSEC) 20 mg Capsule, Delayed Release(E.C.) Take 20 mg by mouth daily . 09/13/2013 Active ZETIA 10 mg tablet Take 10 mg by mouth daily . 08/17/2013 Active ACCU-CHEK MULTICLIX LANCET 09/13/2013 Active ACCU-CHEK DELFINO PLUS TEST STRP Strip 08/17/2013 Active CALCIUM CARBONATE/VITAM IN D3 (CALTRATE-600 PLUS VITAMIN D3 ORAL)Indication s:Malignant neoplasm of upper-outer quadrant of female breast, right (CMS/HCC),Aroma tase inhibitor use Take 1 Capsule by mouth daily . Active venlafaxine (EFFEXOR XR) 37.5 mg Extended Release 24 hour capsule TAKE 1 CAPSULE(37.5 MG) BY MOUTH DAILY 06/18/2018 Active meloxicam (MOBIC) 15 mg tablet TAKE 1 TABLET BY MOUTH EVERY DAY NEEDED FOR PAIN 04/07/2018 Active Xultophy 100/3.6 100 unit-3.6 mg /mL (3 mL) Insulin Pen 22 Units. 11/15/2021 Active aspirin (ECOTRIN EC) 81 mg Tablet, Delayed Release (E.C.) Take 81 mg by mouth daily. Active meclizine (ANTIVERT) 12.5 mg tablet Take 12.5 mg by mouth. 08/26/2023 Active HYDROcodone-thomas taminophen (NORCO) 5-325 mg tabletIndicatio ns:Malignant neoplasm of lower-outer quadrant of right breast of female, estrogen receptor positive (CMS/HCC) Take 1 Tablet by mouth every 4 hours as needed for Pain, Moderate. Max Daily Amount: 6 Tablets 10 Tablet 03/02/2024 3:47 PM LINING IRONER 03/02/2024 Active Active Problems Patient Care Coordination No te Formatting of this note migh t be different from the original. Primary Care: Kinjal Domingo N.P. Breast surgeon: Aleja Heller M.D. Medical oncologist: Ulises Zheng M.D. Radiation oncologist: Rhonda Figueroa M.D. Cryptanalyst: Kemi Briscoe M.D. Problem Noted Date Diagnosed Date Macromastia 11/10/2013 History of right breast cancer 11/06/2013 Overview (02/05/2014): Pathologic Stage IA (T1c, N0(i-)sn, Mx) Date of Diagnosis: 10/02/2013 Diagnosis: 1.2 cm G2 NS7 IDC, (-)mar(>2mm), (-)LVSI, 0/2 SLN Prognostic Factors: ER 100%, CA 70%, H2N(-), Ki67 38% Mammogram preop: (+)mass, (-)suspicious microcalcifications Surgeon: Uriel Surgery: Lumpectomy/SLNBx, 55cc MARC (01/07/2014) Medical Oncologist: Maite OncotypeDX: low risk, 7% Chemotherapy: none Radiation Oncologist: Carolina Radiation: 01/18-01/22/2014, PBI, 4-5 cm MammoSite device 3400 cGy in 10 BID fractions of 340 cGy 6 hr minimum intrafraction interval Hormonal therapy: Femara after RT Malignant neoplasm of lower- outer quadrant of right breast of female, estrogen receptor positive 10/21/2013 Overview (03/09/2024): Stage: Clinical T1N0 (LOQ); pT2N0 Date of diagnosis: 12/05/2023 Diagnosis: RIGHT Grade 2 25 mm IDC, 0/2 LN ER 100%, CA 70%, Her2 (1+) negative Surgeon: Pina Surgery: 03/02/2024: Right lump/SLN Medical Oncologist: Marce Chemotherapy: Radiation Oncologist: Radiation: Anti-estrogen therapy: Diabetes mellitus HTN (hypertension) Hyperlipidemia Encounters Date Type Department Care Team Description 03/17/2024 1:00 PM LINING IRONER Office Visit [facility] Breast Surgery [address] [address] [facility] [address] [place] [phone] Aleja Heller MD Malignant neoplasm of lower-outer quadrant of right breast of female, estrogen receptor positive (CMS/HCC) (Primary Dx); S/P lumpectomy, right breast; History of lymph node dissection of right axilla 03/13/2024 Chart Note [facility] Radiation Therapy [address] [place] [address] Shai Cheung MD 03/09/2024 Orders Only [facility] Breast Surgery [address] [address] [facility] [address] [place] [address] Aleja Heller MD Malignant neoplasm of lower-outer quadrant of right breast of female, estrogen receptor positive (CMS/HCC) (Primary Dx); S/P lumpectomy, right breast 03/09/2024 Telephone [facility] Breast [facility] [address] [address] [facility] [address] [place] [address] Aleja Heller MD Results 03/09/2024 Chart Note [facility] Breast [facility] [address] [address] [facility] [address] [place] [address] Rain Serrano RN 03/02/2024 1:14 PM LINING IRONER Anesthesia Event [facility] [address] [facility] [address] [place] [address] Anders [place] MD May, Sharon M, CRNA 03/02/2024 12:30 PM LINING IRONER - 03/02/2024 2:08 PM LINING IRONER Surgery [facility] [address] [place] [address] Aleja Heller MD BREAST LUMPECTOMY 03/02/2024 9:55 AM LINING IRONER - 03/02/2024 3:49 PM LINING IRONER Hospital Encounter [facility] [address] [place] [address] Aleja Heller MD Malignant neoplasm of lower-outer quadrant of right breast of female, estrogen receptor positive ([facility]/HCC) Discharge Disposition: Home or Self Care 03/02/2024 9:17 AM LINING IRONER - 03/02/2024 11:59 PM LINING IRONER Hospital Encounter [facility] Nuclear Medicine Lab Testing [address] [place] [address] Aleja Heller MD Discharge Disposition: Home or Self Care 03/02/2024 9:17 AM LINING IRONER - 03/02/2024 11:59 PM LINING IRONER Hospital Encounter [facility] [address] [place] [phone] Aleja Heller MD Discharge Disposition: Home or Self Care 03/02/2024 9:16 AM LINING IRONER - 03/02/2024 11:59 PM LINING IRONER Hospital Encounter [facility] [address] [place] [address] Aleja Hleler MD Discharge Disposition: Home or Self Care 02/27/2024 12:25 PM CDT - 02/27/2024 11:59 PM CDT Hospital Encounter [facility] [address] [place] [address] Aleja Heller MD Discharge Disposition: Home or Self Care 02/27/2024 10:29 AM CDT - 02/27/2024 11:59 PM CDT Hospital Encounter [facility] Non Invasive Cardiology [address] [place] [phone] Discharge Disposition: Home or Self Care from Last 3 Months Family History Medical History Relation Name Comments Thyroid Cancer Brother Lung Cancer Father Stroke Father Lung Cancer Mother Breast Cancer Other MGAunt 55-60 Breast Cancer Paternal Aunt father 1/2 sister same mot her, 50s Colon Cancer Paternal Aunt father 1/2 sister Cancer Neg Hx Ovarian Cancer Neg Hx Relation Name Status Comments Brother Father Mother Other MGAunt Alive Paternal Aunt father 1/2 sister Alive Social History Tobacco Use Types Packs/Day Years Used Date Smoking Tobacco: Never Smokeless Tobacco: Never Tobacco Cessation:Counseling Given: Not Answered Alcohol Use Standard Drinks/Week Comments Yes 0 (1 standard drink = 0.6 oz pur e alcohol) rare Feeling Safe Answer Date Recorded Within the last year, have y ou been afraid of your partner or ex-partner? No 03/17/2024 Emotionally Abused Not on file 03/17/2024 Within the last year, have y ou been kicked, hit, slapped, or otherwise physically hurt by your partner or ex-partner? No 03/17/2024 Sexually Abused Not on file 03/17/2024 Feeling Safe Answer Date Recorded Are you in a relationship wi th someone who hurts you emotionally and/or physically? No 03/02/2024 Food Insecurity Answer Date Recorded Social/Environmental Concerns No concerns Transportation Needs Answer Date Record ed Social/Environmental Concerns No concerns Housing Stability Answer Date Recorded Social/Environmental Concerns No concerns Utility Needs Answer Date Recorded Social/Environmental Concerns No concerns Comments No Sex and Gender Information Value Date Recorded Sex Assigned at Not on file Legal Sex Female 3:51 PM CDT Gender Identity Not on file Sexual Orientation Not on file Occupation Industry Job Start Date Job End Date Not on file Not on file Not on file Not on file Last Filed Vital Signs Vital Sign Reading Time Taken Comments Blood Pressure 134/66 03/17/2024 1:03 PM LINING IRONER man ual Pulse 72 03/17/2024 12:49 PM LINING IRONER Temperature 36.2 ??C (97.2 ??F) 03/02/2024 2:27 PM CS T Respiratory Rate 10 03/02/2024 3:30 PM LINING IRONER Oxygen Saturation 96% 03/02/2024 3:30 PM LINING IRONER Inhaled Oxygen Concentration - - Weight 63 kg (139 lb) 03/17/2024 12:49 PM LINING IRONER Height 151.1 cm (4' 11.5 ) 03/17/2024 12:[address] Body Mass Index 27.6 03/17/2024 12:49 PM LINING IRONER Plan of Treatment Upcoming Encounters Date Type Department Care Team (Late st Contact Info) Description 09/15/2024 10:45 AM CDT Appointment [facility] [address] [place] [phone] [place] [address] [facility] [address] [place] [address] 09/15/2024 11:45 AM CDT Office Visit [facility] Breast Surgery [address] [place] [address] [place] [address] [place] [address] [place] [address] Health Maintenance Due Date Last Done Comments FIT-DNA Q 3 years 1998 FIT/FOBT Q 1 year 1998 Flex Sig/CT Colonography Q 5 years 1998 ZOSTER VACCINE (1 of 2) 2003 DIABETES MICROALBUMIN ANNUAL SCREEN 11/29/2016 11/30/2015 LDL CHOLESTEROL ANNUAL 07/16/2017 07/16/2016 DTAP/TDAP/TD VACCINES (2 - T d or Tdap) 05/30/2019 05/30/2009 INFLUENZA VACCINE (#1) 2023 , 05/25/2022, 05/26/2021, Additional history exists COVID-19 Vaccine (5 - 2023-2 5 season) 2023 01/14/2023, 05/25/2022, 07/25/2020, Additional history exists PNEUMOCOCCAL VACCINE 65+ YEA RS (3 of 3 - PCV20 or PCV21) 01/28/2024 01/27/2019, 03/31/2015 DIABETES HBA1C Q 6 MONTHS 07/28/20242023, 06/05/2023, 02/12/2023, Additional history exists DIABETES ANNUAL RETINAL EXAM 11/24/2024, 10/28/2023, 10/11/2023, Additional history exists DIABETES ANNUAL FOOT EXAM 01/27/2025 01/28/2024 BREAST CANCER SCREENING 03/02/2025 03/02/20 24, 12/25/2021, 12/26/2020, Additional history exists COLORECTAL SCREENING 01/24/2027 01/24/2017, 01/25/20 17 Colorectal Cancer Screening 01/24/2027 RSV VACCINE (60+ or ) (1 - 1-dose 75+ series) 02/03/2028 OSTEOPOROSIS SCREENING Completed 10/17/2023, 2013 Medical Devices Implanted Type Area Dye Lab Technician Device Identifier Shelf Expiration Date Model / Serial / Lot Front Desk Agent Clip Surgiclip Ii Nabil 9.75in [id number] - [id number] Implanted:Qty : 1 on 03/02/2024 by Aleja Heller MD at [facility] [employer] Clip Right: Axilla [employer] - COVIDIEN 11/26/2028 [id number] / / [id number] Hemostatic Surgicel 2x14in 1950 - [id number] Implanted:Qty : 1 on 12/17/2018 by Lilian Bustamanet MD at [facility] Hemostatic Left: Breast [employer] [id number] 04/28/20231950 / / [id number] Procedures Procedure Name Priority Date/Time Associated Diagnosis Comments POC GLUCOSE Routine 03/02/2024 2:37 PM LINING IRONER MAMMO POST PROCEDURE MAMMO RIGHT Routine 03/02/2024 2:09 PM LINING IRONER Invasive ductal carcinoma of breast, female, right (CMS/HCC) PATHOLOGY Pathology 03/02/2024 1:55 PM LINING IRONER Invasive ductal carcinoma of breast, female, right (CMS/HCC) CA INTRAOP SENTINEL LYMPH NODE ID W/DYE INJECTION 03/02/2024 12:30 PM LINING IRONER Invasive ductal carcinoma of breast, female, right (CMS/HCC) CA BX/EXC LYMPH NODE OPEN SUPERFICIAL 03/02/2024 12:30 PM LINING IRONER Invasive ductal carcinoma of breast, female, right (CMS/HCC) CA INJ RADIOACTIVE TRACER FOR ID OF SENTINEL NODE 03/02/2024 12:30 PM LINING IRONER Invasive ductal carcinoma of breast, female, right (CMS/HCC) CA BX/EXC LYMPH NODE OPEN DEEP AXILLARY NODE 03/02/2024 12:30 PM LINING IRONER Invasive ductal carcinoma of breast, female, right (CMS/HCC) CA EXC BRST LES PREOP PLMT RAD MARKER OPN EA ADDL 03/02/2024 12:30 PM LINING IRONER Invasive ductal carcinoma of breast, female, right (CMS/HCC) CA EXC CYST/ABERRANT BREAST TISSUE OPEN 1/> LESION 03/02/2024 12:30 PM LINING IRONER Invasive ductal carcinoma of breast, female, right (CMS/HCC) CA EXC BREAST LES PREOP PLMT RAD MARKER OPEN 1 LES 03/02/2024 12:30 PM LINING IRONER Invasive ductal carcinoma of breast, female, right (CMS/HCC) CA MASTECTOMY PARTIAL 03/02/2024 12:30 PM LINING IRONER Invasive ductal carcinoma of breast, female, right (CMS/HCC) NM INJ SENTINEL NODE Routine 03/02/2024 11:18 AM LINING IRONER Invasive ductal carcinoma of breast, female, right (CMS/HCC) MAMMO US GUIDED BREAST LOCAL Routine 03/02/2024 10:55 AM LINING IRONER Invasive ductal carcinoma of breast, female, right (CMS/HCC) POC GLUCOSE Routine 03/02/2024 10:11 AM LINING IRONER MAMMO BREAST US RIGHT LTD Stat 02/27/2024 1:06 PM CDT Invasive ductal carcinoma of right breast (CMS/HCC) Lump in female breast EKG 12-LEAD Routine 02/27/2024 10:58 AM CDT EKG 12-LEAD Routine 02/27/2024 Invasive ductal carcinoma of breast, female, right (CMS/HCC) MAMMO 3D FLORENTINO SCREEN BILAT W OR WO CAD Routine 12/25/2021 1:33 PM CDT Malignant neoplasm of upper-outer quadrant of right breast in female, estrogen receptor positive (CMS/HCC) Encounter for screening mammogram for malignant neoplasm of breast LIPID PANEL Routine 07/16/2016 MICROALBUMIN, RANDOM URINE Routine 11/30/2015 XR DEXA BONE DENSITY AXIAL 1 OR MORE SITES Routine 01/21/2014 9:31 AM CDT Malignant neoplasm of upper-outer quadrant of female breast, right (CMS/HCC) Osteoporosis screening Postmenopausal status (age-related) (natural) from Last 3 Months or Most Recently Relevant to Health Maintenance Results * (ABNORMAL) POC GLUCOSE (03/02/2024 2:37 PM LINING IRONER) Only the most recent of2 resultswithin the time period is included. GLUCOSE POC 108(H) 74 - 99 mg/dL 03/02/2024 2:37 PM LINING IRONER [facility] RADIOLOGY MULTI SITE/OPS [facility] SPECIMEN SOURCE, GLUCOSE POC Whole Blood 03/02/2024 2:37 PM LINING IRONER [facility] RADIOLOGY MULTI SITE/OPS CLYTN Blood, whole 03/02/2024 2:37 PM LINING IRONER 03/02/2024 2:45 PM LINING IRONER us Aleja Heller MD POINT OF CARE TESTING Final Resu lt [facility] RADIOLOGY MULTI SITE/OPS [facility]TN CLIA # [id number] [place] [address] * MAMMO POST PROCEDURE MAMMO RIGHT (03/02/2024 2:09 PM LINING IRONER) Anatomical Region Laterality Modality Breast Right Mammography 03/02/2024 2:10 PM LINING IRONER Narrative 03/02/2024 2:19 PM LINING IRONER ULTRASOUND-GUIDED NEEDLE LOCALIZATION THE RIGHT BREAST; RIGHT UNILATERAL POST PROCEDURE MAMMOGRAM; SURGICAL SPECIMEN RADIOGRAPH OF THE RIGHT BREAST 03/02/2024 HISTORY: Previous biopsy of the right breast revealed malignancy. The patient presents for needle localization and surgical excision. PROCEDURE AND FINDINGS: The risks and benefits of the procedure were explained to the patient and informed consent was obtained. Ultrasound was performed through the lateral aspect of the right breast and the previously biopsied mass was reidentified. The overlying skin surface was prepped in sterile fashion and 1% lidocaine was used for local anesthesia. Under ultrasound guidance the 5 cm localization needle was inserted through the mass from a lateral approach and 0.3 cc blue dye was injected. A wire was inserted and the needle was withdrawn over the wire. The wire was secured to the skin. The patient tolerated the procedure well and no significant complications were experienced. Post procedure mammogram confirmed successful positioning of the wire localizing the mass and biopsy marker. Images were labeled, imprinted and sent with the patient to the surgical waiting area. A specimen radiograph was provided for review at 1407 hours. The tissue sample contains the mass and biopsy marker centrally. Findings were called to the OR at the time of the examination. CONCLUSION: Technically successful ultrasound-guided needle localization and surgical excision of the right breast. [facility] MD MAMMO ORDERABLES Final Result * PATHOLOGY (03/02/2024 1:55 PM LINING IRONER) CASE REPORT Surgical Pathology Report ? Case: [id number] ? Authorizing Provider: ??Aleja Heller MD ? Collected: ? 03/02/2024 01:55 PM ? [facility]ing Location: ? [facility] ?? Received: ?03/02/2024 02:13 PM ? [facility] ? Pathologist: ? Shi Acosta MD ? Specimens: ?? A) - Axilla, right, right axillary sentinel lymph nodes ? B) - Breast, right, right lumpectomy-LL/SS ? C) - Breast, right, reexcision anterior margin-stitch new margin ? 4 11:19 AM [facility] FINAL DIAGNOSIS Lymph nodes, right axillary, sentinel, dissection: - No evidence of metastatic carcinoma in 2 lymph nodes (0/2) Breast, right, lumpectomy with needle localization: - Invasive ductal carcinoma, with the following features: 1. Size: 25 mm (estimated gross measurement) 2. Silvino score: 6/9 (grade 2) 3. Lymphovascular space invasion: Not identified 4. Margins of resection: Positive; present at anterior margin for 1 mm - Less than 1 mm anterior lateral margin 5. Stage: pT2, pN0(sn) - Ductal carcinoma in situ, intermediate grade, cribriform architecture with no comedonecrosis 1. Extent: Not directly measurable; admixed with invasive carcinoma on 3 of 14 blocks 2. Margins of resection: Negative; less than 1 mm inferior margin and 5 mm anterior margin - Atypical ductal hyperplasia - Clustered apocrine cysts - See microscopic description and synoptic Breast, right, anterior margin, reexcision: - Atypical lobular hyperplasia - Radial scars - Fibrocystic change with columnar cell change and apocrine metaplasia - Sclerosing adenosis - Negative for in situ or invasive carcinoma - See microscopic description 4 11:19 AM [facility] [place] [facility] S DESCRIPTION The specimen is received in formalin in 3 separate containers, each labeled with the patient's name Anya Bhatia . Specimen A is additionally labeled right axillary sentinel lymph nodes and consists of two irregularly-shaped portion of fatty soft tissue measuring 1.5 x 1 x 0.5 cm and 1 x 0.7 x 0.5 cm. Embedded within the fat are two lymph nodes measuring 0.7 x 0.5 x 0.3 cm and 1 x 0.5 x 0.5 cm. The lymph nodes ae bisected and entirely submitted in cassette A1-A2 (one lymph node each). Specimen B is additionally labeled right lumpectomy-LL/SS and consists of an ovoid shaped, 19 g portion of fatty soft tissue measuring 3 cm from superior to inferior, 4 cm from medial to lateral, and 2.5 cm from anterior to posterior. There is a localizing wire with the tip protruding from medial side of the specimen. The specimen is subsequently inked as follows: superior-blue, inferior-green, anterior-yellow , and posterior-black. The specimen is then sliced from lateral towards medial into 8 slices to reveal yellow lobulated adipose tissue with interspersing dense white fibrous tissue. There is a 0.8 x 0.6 x 0.5 cm irregular kaur-white firm mass in slices 4-5. The mass is 2 mm to anterior resection margin, 5 mm to superior resection margin, 1 cm to the inferior resection margin, 2.5 cm to the posterior resection margin, and away from lateral and medial resection margins. No other mass lesion is identified. The specimen is entirely submitted as follows: B1-B2 -slice 1 (lateral margin, perpendicular), B3-B4 - slice 2, B5-B6- slice 3, B7-B8- slice 4, B9-B10- slice 5, B11-B12- slice 6, C45-rgidx7, B14- slice 8 (medial margin, perpendicular). Specimen C is additionally labeled reexcision anterior margin-stitch new margin and consists of an irregularly-shaped, 12 g portion of fatty soft tissue measuring 6 x 3.5 x 2 cm. The new margin is inked in blue, and the old gandhi is inked in black. The specimen is serially sectioned to reveal no mass lesion. The specimen is entirely submitted in cassettes C1-C9. 4 11:19 AM [facility] MICROSCOPIC DESCRIPTION The slides are labeled [id number] and Anya Bhatia. Sections of the right axillary sentinel lymph dissection show no evidence of metastatic carcinoma in 2 lymph nodes. Sections of the right lumpectomy specimen show a single focus of invasive ductal carcinoma, which grows in a buckshot pattern within the lateral aspect of the breast involving levels 1-5 and is estimated to measure 25 millimeters. The invasive component lacks myoepithelial cells with SMMS and p63 immunochemical stains. The tumor cells invade breast tissue as small nests and cribriform structures with rare tubules (score of 3). The tumor cells are enlarged and moderately pleomorphic with nucleoli (score of 2). Mitoses are not readily appreciated and occur up to 4/10 HPF (score of 1). Lymphovascular space invasion is not identified on routine-stained sections. Tumor is present at the anterior margin with cautery artifact for a span of 1 mm and is also less than 1 mm of the anterior lateral margin. Admixed with the invasive component are foci of intermediate grade ductal carcinoma in situ with cribriform architecture and no comedonecrosis, which show the lack of staining for CK5/6 and diffuse positivity ER. Margins of resection are negative but close for in situ carcinoma, which is less than 1 mm of the inferior margin and 5 mm of the anterior margin. Biomarker studies were performed on the biopsy specimen ([id number]). Please see this report for biomarker status. Please see synoptic below for additional information. Sections of the reexcision of the anterior margin show a spectrum of proliferative changes as stated in the final diagnoses, including atypical lobular hyperplasia which shows the lack of staining for E-cadherin. SMMS and p63 immunochemical stains were also performed and show the presence of myoepithelial cells surrounding a focus of sclerosing adenosis. No evidence of residual in situ or invasive carcinoma is appreciated. 4 11:19 [facility] OPERATIVE PROCEDURE 1: BREAST LUMPECTOMY 2: SENTINEL LYMPH NODE BIOPSY MAPPING 4 11:19 AM [facility] Dine in [facility] CLINICAL INFORMATION C50.911-Invasive ductal carcinoma of breast, female, right 4 11:19 AM [facility] Dine in [facility] SYNOPTIC REPORT INVASIVE CARCINOMA OF THE BREAST: Resection INVASIVE CARCINOMA OF THE BREAST: RESECTION - A, B 8th Edition - Protocol posted: 10/16/2023 SPECIMEN ?? Procedure: ?Excision (less than total mastectomy) ?? Specimen Laterality: ?Right TUMOR ?? Tumor Site: ?Not specified ?? Histologic Type: ?Invasive carcinoma of no special type (ductal) ?? Histologic Grade ([place] Histologic Score): ? Glandular (Acinar) / Tubular Differentiation: ?Score 3 ? Nuclear Pleomorphism: ?Score 2 ? Mitotic Rate: ?Score 1 ? Overall Grade: ?Grade 2 (scores of 6 or 7) ?? Tumor Size: ?Greatest dimension of largest invasive focus (Millimeters): 25 mm ?? Tumor Focality: ?Single focus of invasive carcinoma ?? Ductal Carcinoma In Situ (DCIS): ?Present ? : ?Negative for extensive intraductal component (EIC) ? Size (Extent) of DCIS: ?Cannot be determined ? Architectural Patterns: ?Cribriform ? Nuclear Grade: ?Grade II (intermediate) ? Necrosis: ?Not identified ? Number of Blocks with DCIS: ?3 ? Number of Blocks Examined: ?14 ?? Lymphatic and / or Vascular Invasion: ?Not identified ?? Dermal Lymphatic and / or Vascular Invasion: ?No skin present ?? Microcalcifications: ?Not identified ?? Treatment Effect in the Breast: ?No known presurgical therapy MARGINS ?? Margin Status for Invasive Carcinoma: ?Invasive carcinoma present at margin ? Margin(s) Involved by Invasive Carcinoma: ?Anterior: 1 mm ? Distance from Invasive Carcinoma to Lateral Margin: ?Less than: 1 mm ?? Margin Status for DCIS: ?All margins negative for DCIS ? Distance from DCIS to Closest Margin: ?Less than: 1 mm ? Closest Margin(s) to DCIS: ?Inferior ? Distance from DCIS to Anterior Margin: ?5 mm REGIONAL LYMPH NODES ?? Regional Lymph Node Status: ? : ?All regional lymph nodes negative for tumor ? Total Number of Lymph Nodes Examined (sentinel and non-sentinel): ?2 ? Number of Touchet Nodes Examined: ?2 pTNM CLASSIFICATION (AJCC 8th Edition) ?? Reporting of pT, pN, and (when applicable) pM categories is based on information available to the pathologist at the time the report is issued. As per the AJCC (Chapter 1, 8th Ed.) it is the managing physician's responsibility to establish the final pathologic stage based upon all pertinent information, including but potentially not limited to this pathology report. ?? pT Category: ?pT2 ?? pN Category: ?pN0 ?? N Suffix: ?(sn) 4 11:19 AM [facility] COMMENT Special stain, immunohistochemical, and/or in situ hybridization results are interpreted with controls that demonstrate appropriate staining reactions. Note on use of immunohistochemistry reagents and in situ hybridization probes: These tests were developed and their performance characteristics determined by [facility], Department of Laboratory Medicine. It has not been cleared or approved by the U.S. Food and Drug Administration. The FDA has determined that such clearance or approval is not necessary. The test is used for clinical purposes. It should not be regarded as investigational or for research. This laboratory is certified to perform high complexity testing. Frozen section/operating room consultation, gross examination and dissection, and case sign out may have been performed in part or completely in the following laboratories: [facility], [place] #[id number] [address] [place] [address] [facility], [place] #[id number] [address] [place] [address] [facility] [place] #[id number] [address] [place] [address] This report was created with the [employer] voice-activated dictation system. Inherent to this system is the possibility of syntax, grammar, punctuation and other errors that could impact the interpretation of the report. If there are interpretative questions about aspects of this report, please contact the performing pathologist. 4 11:19 AM [facility] Tissue (Axilla, right) Collection / Unknown 03/02/2024 1:55 PM [facility] 03/02/2024 2:13 PM [facility] Tissue specimen (specimen) RIGHT BREAST STRUCTURE / Unknown 03/02/2024 1:59 PM [facility] 03/02/2024 2:13 PM [facility] Tissue specimen (specimen) RIGHT BREAST STRUCTURE / Unknown 03/02/2024 2:02 PM [facility] 03/02/2024 2:13 PM [facility] us Aleja Heller MD PATHOLOGY/CYTOLOGY ORDERABLES Fi nal Result [facility] CLIA# [id number] [address] [place] [address] * NM INJ SENTINEL NODE (03/02/2024 11:18 AM [facility]) Anatomical Region Laterality Modality Nuclear Medicine 03/02/2024 11:1 9 AM [facility] Impressions 03/02/2024 11:38 AM [facility] IMPRESSION: ??Lymphoseek injected for sentinel lymph node localization. No images acquired. Dictated by Josh Stallings DO DICTATION LOCATION: 1 Narrative 03/02/2024 11:38 AM [facility] SENTINEL LYMPH NODE INJECTION ONLY DATE: 03/02/2024 11:18 AM HISTORY: Invasive ductal carcinoma of the right breast. PROCEDURE: Skin preparation with Chloraprep wipes. Technetium Lymphoseek was injected as 2 intradermal injections around the periareolar region. ?? RADIOPHARMACEUTICAL: 5.13 mCi 99m-Technetium Lymphoseek FINDINGS: ??Patient injected however no image was acquired. INCIDENTAL FINDINGS: ??None. Procedure Note Josh Stallings DO - 03/02/2024 SENTINEL LYMPH NODE INJECTION ONLY DATE: 03/02/2024 11:18 AM HISTORY: Invasive ductal carcinoma of the right breast. PROCEDURE: Skin preparation with Chloraprep wipes. Technetium Lymphoseek was injected as 2 intradermal injections around the periareolar region. RADIOPHARMACEUTICAL: 5.13 mCi 99m-Technetium Lymphoseek FINDINGS: Patient injected however no image was acquired. INCIDENTAL FINDINGS: None. IMPRESSION: Lymphoseek injected for sentinel lymph node localization. No images acquired. Dictated by Josh Stallings DO DICTATION LOCATION: 1 Result [facility] us Aleja Heller MD NM ORDERABLES Final Result * MAMMO US GUIDED BREAST LOCAL (03/02/2024 10:55 AM [facility]) Anatomical Region Laterality Modality Breast N/A Ultrasound 03/02/2024 11:0 5 AM [facility] IR[facility]ER Narrative 03/02/2024 2:19 PM [facility] ULTRASOUND-GUIDED NEEDLE LOCALIZATION THE RIGHT BREAST; RIGHT UNILATERAL POST PROCEDURE MAMMOGRAM; SURGICAL SPECIMEN RADIOGRAPH OF THE RIGHT BREAST 03/02/2024 HISTORY: Previous biopsy of the right breast revealed malignancy. The patient presents for needle localization and surgical excision. PROCEDURE AND FINDINGS: The risks and benefits of the procedure were explained to the patient and informed consent was obtained. Ultrasound was performed through the lateral aspect of the right breast and the previously biopsied mass was reidentified. The overlying skin surface was prepped in sterile fashion and 1% lidocaine was used for local anesthesia. Under ultrasound guidance the 5 cm localization needle was inserted through the mass from a lateral approach and 0.3 cc blue dye was injected. A wire was inserted and the needle was withdrawn over the wire. The wire was secured to the skin. The patient tolerated the procedure well and no significant complications were experienced. Post procedure mammogram confirmed successful positioning of the wire localizing the mass and biopsy marker. Images were labeled, imprinted and sent with the patient to the surgical waiting area. A specimen radiograph was provided for review at 1407 hours. The tissue sample contains the mass and biopsy marker centrally. Findings were called to the OR at the time of the examination. CONCLUSION: Technically successful ultrasound-guided needle localization and surgical excision of the right breast. Dictation Location [facility] us Aleja Heller MD MAMMO ORDERABLES Final Result * (ABNORMAL) MAMMO BREAST US RIGHT LTD (02/27/2024 1:06 PM CDT) Anatomical Region Laterality Modality Right Ultrasound 02/27/2024 1:07 PM CDT Impressions 02/27/2024 1:21 PM CDT IMPRESSION: The biopsy-proven malignancy at 8:00 of the right breast is unchanged. RECOMMENDATIONS: Further surgical and medical treatment. RIGHT BREAST OVERALL ASSESSMENT: BI-RADS Category 6. Biopsy-proven malignancy. DICTATION LOCATION: [address] [place] Narrative 02/27/2024 1:21 PM CDT RIGHT BREAST ULTRASOUND LIMITED 02/27/2024. HISTORY: Biopsy-proven malignancy at 8:00 of the right breast. RIGHT BREAST ULTRASOUND FINDINGS: Comparison studies are dated 12/05/2023 and 12/03/2023. At 8:00, 5 cm from the nipple, a small superficial hypoechoic mass is again visualized which contains a biopsy clip. It measures 0.6 x 0.4 cm without significant interval change. No other mass lesion is identified. Procedure Note Suzanne Celeste MD - 02/27/2024 RIGHT BREAST ULTRASOUND LIMITED 02/27/2024. HISTORY: Biopsy-proven malignancy at 8:00 of the right breast. RIGHT BREAST ULTRASOUND FINDINGS: Comparison studies are dated 12/05/2023 and 12/03/2023. At 8:00, 5 cm from the nipple, a small superficial hypoechoic mass is again visualized which contains a biopsy clip. It measures 0.6 x 0.4 cm without significant interval change. No other mass lesion is identified. IMPRESSION: The biopsy-proven malignancy at 8:00 of the right breast is unchanged. RECOMMENDATIONS: Further surgical and medical treatment. RIGHT BREAST OVERALL ASSESSMENT: BI-RADS Category 6. Biopsy-proven malignancy. DICTATION LOCATION: [address] [place] Aleja Heller MD MAMMO ORDERABLES Final Result * EKG 12-LEAD (02/27/2024 10:58 AM CDT) Only the most recent of2 resultswithin the time period is included. 02/27/2024 10:5 8 AM CDT Narrative INTERFACE SYSTEM - 02/27/2024 5:55 PM CDT ? [facility] ? [address], [place] [address] ? Test Date: ?2024-02-27 Pat Name: ? ANYA GIACALONE ?Department: ?? 100 ?Room: ? Gender: ? Female ? 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 Kmb : ?1955 ? Requested By: ? Order Number: [id number] ? Reading MD: ?? Allan Wiele ? Measurements Intervals ?[place] ? Rate: ? 72 ? P: ?28 CA: ? 156 ?QRS: ?11 QRSD: ? 90 ? T: ?43 QT: ? 359 ? QTc: ?395 ? Interpretive Statements SINUS RHYTHM WITH MARKED SINUS ARRHYTHMIA Electronically Signed On 02-27-2024 17:55:45 CDT by Allan Mendes Procedure Note Allan Mendes MD - 02/27/2024 [facility] [address] [place] [address] Test Date: 2024-02-27 Pat Name: ANYA TASABI Department: 100 Room: Gender: Female Mash Tub Cooker: Magalie : 1955 Requested By: Order Number: [id number] Reading MD: Allan Mendes Measurements Intervals [place] Rate: 72 P: 28 CA: 156 QRS: 11 QRSD: 90 T: 43 QT: 359 QTc: 395 Interpretive Statements SINUS RHYTHM WITH MARKED SINUS ARRHYTHMIA Electronically Signed On 02-27-2024 17:55:45 CDT by Allan Mendes us Aleja Heller MD ECG ORDERABLES Final Result Performing Organization Address City/State/[facility] Co de Phone Number INTERFACE SYSTEM Refer to clinic/hospital department * MAMMO SCRN BILAT 3D FLORENTINO W OR WO CAD (12/25/2021 1:33 PM CDT) Anatomical Region Laterality Modality Breast Bilateral Mammography 12/25/2021 1:47 PM CDT Impressions 12/25/2021 4:57 PM CDT IMPRESSION: No suspicious findings to suggest malignancy in either breast. Annual mammography is recommended. ?? OVERALL FINAL ASSESSMENT: BI-RADS CATEGORY 2: Benign findings. DICTATION LOCATION: [facility] 12/25/2021 4:57 PM CDT BILATERAL SCREENING DIGITAL MAMMOGRAM WITH 3D TOMOSYNTHESIS AND CAD DATE: 12/25/2021 1:33 PM INDICATION: Right breast conservation therapy and previous left breast surgery. No current breast complaint. TECHNIQUE: Full-field digital craniocaudal and mediolateral oblique projections of both breasts were obtained. Low-dose full-field digital breast tomosynthesis examination was performed with 2D and 3D acquisitions. Examination is read in conjunction with computer aided detection. COMPARISON: 12/26/2020. BREAST COMPOSITION: Scattered fibroglandular densities. ?? FINDINGS: No suspicious mass, suspicious microcalcifications, or architectural distortion is identified in either breast. Right breast conservation therapy changes are redemonstrated. Postsurgical changes involving the left breast are noted. Computer aided detection was used in the interpretation of this examination. ?? Procedure Note Chacho Frias MD - 12/25/2021 BILATERAL SCREENING DIGITAL MAMMOGRAM WITH 3D TOMOSYNTHESIS AND CAD DATE: 12/25/2021 1:33 PM INDICATION: Right breast conservation therapy and previous left breast surgery. No current breast complaint. TECHNIQUE: Full-field digital craniocaudal and mediolateral oblique projections of both breasts were obtained. Low-dose full-field digital breast tomosynthesis examination was performed with 2D and 3D acquisitions. Examination is read in conjunction with computer aided detection. COMPARISON: 12/26/2020. BREAST COMPOSITION: Scattered fibroglandular densities. FINDINGS: No suspicious mass, suspicious microcalcifications, or architectural distortion is identified in either breast. Right breast conservation therapy changes are redemonstrated. Postsurgical changes involving the left breast are noted. Computer aided detection was used in the interpretation of this examination. IMPRESSION: No suspicious findings to suggest malignancy in either breast. Annual mammography is recommended. OVERALL FINAL ASSESSMENT: BI-RADS CATEGORY 2: Benign findings. DICTATION LOCATION: [facility] Dwaine Arora MD MAMMO ORDERABLES Final Result * (ABNORMAL) LIPID PANEL (07/16/2016) Blood Abstract Provider CHEMISTRY ORDERABLES Edited Re sult - Final [facility] * (ABNORMAL) MICROALBUMIN, RANDOM URINE (11/30/2015) Urine specimen (specimen) URINE SPECIMEN OBTAINED BY CLEAN CATCH PROCEDURE / Unknown us Abstract Provider URINE ORDERABLES Edited Result - Final [facility]# [id number] [address] [place] [address] * XR DEXA BONE DENSITY AXIAL 1 OR MORE SITES (01/21/2014 9:31 AM CDT) Anatomical Region Laterality Modality Computed Radiogr aphy 01/21/2014 9:30 AM CDT Narrative 01/21/2014 9:39 AM CDT Examination: ??Bone Density Study (DXA) Clinical History: 58 year-old postmenopausal female with a personal history of breast cancer. Findings: Lumbar Spine ( L1 ) T-score -1.8 ?? 0.91 g/sq cm Left femoral neck ? T-score -1.3 ?? 0.86 g/sq cm Right femoral neck ?? T-score -1.2 ?? 0.88 g/sq cm Right 33% radius T-score -0.8 ?? 0.81 g/sq cm IMPRESSION Osteopenic lumbar spine and femoral neck bone mineral densities. Comments: L2-L4 excluded because of statistical variation related to significant osteoarthritis. Detailed report placed in [facility]. Dictated by Dr. Herrera Crooks MD Dictated from Location 1. Procedure Note Herrera Crooks MD - 01/21/2014 Examination: Bone Density Study (DXA) Clinical History: 58 year-old postmenopausal female with a personal history of breast cancer. Findings: Lumbar Spine ( L1 ) T-score -1.8 0.91 g/sq cm Left femoral neck T-score -1.3 0.86 g/sq cm Right femoral neck T-score -1.2 0.88 g/sq cm Right 33% radius T-score -0.8 0.81 g/sq cm IMPRESSION Osteopenic lumbar spine and femoral neck bone mineral densities. Comments: L2-L4 excluded because of statistical variation related to significant osteoarthritis. Detailed report placed in [facility]. Dictated by Dr. Herrera Crooks MD Dictated from Location 1. Dwaine Arora MD DIAGNOSTIC IMAGING ORDERABLES Final Result from Last 3 Months or Most Recently Relevant to Health Maintenance Insurance MEDICARE PART A AND B [facility] RX [employer] Medicare Part D RX [employer] Medicare Part D Advance Directives For more information, please contact: [phone] * Full Code (Latest Code Status on File) Date Activated Date Inactivated Comments 12/17/2018 9:21 AM 12/17/2018 2:03 PM * Full Code Date Activated Date Inactivated Comments 01/07/2014 1:33 PM 01/07/2014 11:53 PM * Full Code Date Activated Date Inactivated Comments 01/07/2014 8:32 AM 01/07/2014 1:33 PM
--- OUTSIDE RECORDS SUMMARY | 2024-05-29 15:58 | XMS_ITS | Encounter Summary ---
Author Organization [facility] Address [address] [place] [address] Care Team Providers Care Nutrition Aide Name Role Phone Peter Padron MD Primary Care Provider [phone] Peter Padron MD Primary Care Provider [phone] Nicki Monk [facility] Unavailable [phone] Kinjal Domingo NP Primary Care Provider + [phone] Reason for Referral * Diagnostic Imaging (Routine) - Closed Specialty Diagnoses / Procedures Referred By Contac t Referred To Contact Procedures Dexa Axial Skeleton Bone Density 1 or 2 Site [facility] Health Information Management [address] [place] [address] Phone: tel: fax: [facility] Referral ID Status Reason Start Date Expiration Date Visits Re quested Visits Authorized [id number] Closed 01/12/2019 07/23/2020 1 1 Encounter Details Date Type Department Care Team (Late st Contact Info) Description 01/21/2014 Orders Only [facility] Health Information Management [address] [place] [id number] Peter Padron MD [address] [facility] [address] [address] Social History Tobacco Use Types Packs/Day Years Used Date Smoking Tobacco: Never Alcohol Use Standard Drinks/Week Comments No 0 (1 standard drink = 0.6 oz pur e alcohol) Comments Unknown Sex and Gender Information Value Date Recorded Sex Assigned at Not on file Legal Sex Female 7:03 PM [employer]ARYING 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[employer]ER Gender Identity Not on file Sexual Orientation Not on file documented as of this encounter Plan of Treatment Upcoming Encounters Date Type Department Care Team (Late st Contact Info) Description 06/29/2024 11:30 AM VARYING 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ACHER Hospital Encounter [address] [address] Herrera Caceres DO [address] [place] [address] 06/29/2024 11:30 AM VARYING 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ACHER - 06/29/2024 12:00 PM VARYING 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ACHER Surgery [address] [address] Herrera Caceres, [address] [place] [address] COLONOSCOPY Scheduled Procedures Name Priority Associated Diagnoses Date/Ti me COLONOSCOPY Hx of colonic polyps 06/29/2024 11:30 AM VARYING 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ACHER documented as of this encounter Procedures Procedure Name Priority Date/Time Associated Diagnosis Comments DEXA AXIAL SKELETON BONE DENSITY 1 OR MORE SITES Schedule Routine, Read Routine (OP Routine) 01/21/2014 documented in this encounter Results * Dexa Axial Skeleton Bone Density 1 or 2 Site (01/21/2014) Anatomical Region Laterality Modality Body N/A Radiographic Marlys ging us Historical Provider MD ROLDAN DXA PROCEDURES Final Result documented in this encounter Visit Diagnoses Not on filedocumented in this encounter Additional Health Concerns Infection Onset Date Last Indicated Resolved Time COVID: Suspected 01/13/2021 01/13/2021 01/13/2021 3:19 PM CDT COVID: Suspected 04/24/2022 04/24/2022 04/24/2022 11:58 AM VARYING 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ACHER COVID: Suspected 12/17/2022 12/17/2022 12/17/2022 5:26 PM CDT documented as of this encounter Care Teams Nutrition Aide Relationship Specialty Start Date End Date Peter Padron MD PCP - General 07/27/16 08/25/23 Peter Padron MD PCP - General 10/31/12 07/26/16 Kinjal Domingo NP [address] [place] [address] PCP - General Family Medicine 08/26/23 Nicki Monk, [address] [place] [address] Loom Overhauler 05/04/20 2 documented as of this encounter
--- OUTSIDE RECORDS SUMMARY | 2024-05-29 15:58 | XMS_ITS | Referral Summary ---
Author Organization [facility] Medical Office Building [address] Address [address] [place] [address] Care Team Providers Care Application Support Engineer Name Role Phone Kinjal Domingo NP Primary Care Provider [phone] Encounters Date Type Department Care Team Description 05/06/2024 Telephone [facility] Diabetes Endocrine Care at [address] [place] [address] Kemi Golden NP 04/02/2024 Telephone [facility] Diabetes Endocrine Care at [address] [place] [address] Kemi Golden, KEN from Last 3 Months Allergies Active Allergy Reactions Criticality Noted Date Comments Adhesive Rash Medium 10/21/2013 Latex Rash Reaction: Rash, , Tsbxfkh-Adi-Tla Reductase Inhibitors Muscle pain Medium 01/29/2023 Medications calcium carbonate-vitami n D3 (CALTRATE WITH VITAMIN D3) 1,500 mg (600mg elemental) -800 unit per tablet take 1 tablet daily 0 0 4 Active aspirin 81 mg tablet take 1 tablet (81MG) by ORAL route every day 0 0 Active blood-glucose meter kit Use four times a day for monitoring of diabetes 1 each 8 Active meloxicam (MOBIC) 15 mg tablet Take 1 tablet (15 mg total) by mouth daily 30 tablet 2 3 Active venlafaxine XR (EFFEXOR-XR) 37.5 mg 24 hr capsule TAKE 1 CAPSULE(37.5 MG) BY MOUTH DAILY 100 capsule 1 3 Active pen needle, diabetic (Pen Needle) 31 gauge x 5/16 needle USE TO INJECT INSULIN 4 TIMES DAILY DIRECTED 400 each 3 4 Active meclizine (ANTIVERT) 12.5 mg tabletIndication s:Benign paroxysmal positional vertigo, unspecified laterality Take 1 tablet (12.5 mg total) by mouth 3 (three) times a day as needed for dizziness 60 tablet 4 Active lisinopriL (PRINIVIL,ZESTRI L) 5 mg tablet TAKE 1 TABLET(5 MG) BY MOUTH DAILY 90 tablet 3 4 Active omeprazole (PriLOSEC) 20 mg capsule TAKE 1 CAPSULE(20 MG) BY MOUTH DAILY 90 capsule 3 4 Active Xultophy 100/3.6 100 unit-3.6 mg /mL (3 mL) insulin pen penIndications:T ype 2 diabetes mellitus with hyperglycemia, with long-term current use of insulin (HCC) Take 24 Units by mouth daily 30 mL 4 4 Active blood glucose diagnostic (glucose blood) strip Check blood sugar two times a day or as directed 200 each 4 4 Active ezetimibe (ZETIA) 10 mg tablet TAKE 1 TABLET(10 MG) BY MOUTH DAILY 90 tablet 3 4 Active blood glucose diagnostic (FreeStyle Precision Will Strips) strip 1 each by other route 2 (two) times a day E11.65 use to confirm blood sugar with sensor. E11.65 180 strip 4 5 Active Active Problems Problem Noted Date Diagnosed Date Type 2 diabetes mellitus with hyperlipidemia 11/2023 Assessment & Plan (03/06/2024 3:11 PM CURBING STONECUTTER): -chronic, stable -Discussed/ordered labs -Patient is unable to tolerate statins due to muscle pain -continue on ezetimibe 10 mg daily Hx of colonic polyps 02/25/2024 Assessment & Plan (02/28/2024 11:36 AM CDT): Last colonoscopy completed 01/24/2017. Patient is scheduled for repeat colonoscopy on 06/29/2024 freestyle mary 2 continuous glucose monitoring device 10/22/2022 Assessment & Plan (01/28/2024 5:06 PM CDT): Continuous glucose monitor (cgm) applied from 05/23/2023 to 06/05/2023 This device was placed for monitor and treatment of blood sugar. Download from 01/06/2024 2 01/19/2024 Interpretation of data- average glucose 155. In target range 68 %. 31 % hyperglycemia. 1 % nocturnal hypoglycemia Assessment & Plan (06/05/2023 4:09 PM CURBING STONECUTTER): Continuous glucose monitor (cgm) applied from 05/23/2023 to 06/05/2023 This device was placed for monitor and treatment of blood sugar. Interpretation of data- average glucose 140. In target range 75%. 22% hyperglycemia. 3% nocturnal hypoglycemia Assessment & Plan (01/29/2023 3:16 PM CDT): Continuous glucose monitor (cgm) applied from 01/26/2023 to 01/29/2023 This device was placed for monitor and treatment of blood sugar. Interpretation of data- average glucose 139. In target range 69%. 23% hyperglycemia. 8% nocturnal hypoglycemia decreased Xultophy 20 units daily to avoid hypoglycemia Assessment & Plan (10/22/2022 1:33 PM CDT): Continuous glucose monitor (cgm) applied from 10/09/2022 to 10/22/2022 This device was placed for monitor and treatment of blood sugar. Interpretation of data- average glucose 142. In target range 75%. 22% hyperglycemia.3% hypoglycemia decreased Xultophy 24 units daily to avoid hypoglycemia BPPV (benign paroxysmal positional vertigo) 01/28 Assessment & Plan (08/26/2023 3:30 PM CDT): -chronic, stable -Discussed/ordered labs -continue on meclizine 12.5 mg 3 times daily as needed Assessment & Plan (05/05/2020 4:57 PM CURBING STONECUTTER): Meclizine p.r.n.. Call back for vestibular therapy if needed. Assessment & Plan (04/20/2020 8:18 PM CURBING STONECUTTER): Meclizine p.r.n. call back for vestibular therapy if needed. Chronic rhinitis 07/21/2018 Assessment & Plan (02/28/2024 11:35 AM CDT): -chronic, stable Discussed environmental controls No smoking around patient, no animals in bedroom, keep windows closed, no hanging clothes on the line Take zyrtec/claritin/pauly in the am Saline rinse in the am Flonase 1 sprays each nostril, aim away from cartilage, spray once-baby sniff, switch to the other nostril and repeat. Saline rinse about 15 min before bed Flonase 1 sprays each nostril, aim away from cartilage, spray once-baby sniff, switch to the other nostril and repeat. If working or playing outside, may need to do saline rinses when coming in and change clothes right away Recommend staying on the above treatment from the beginning of June to Come off of meds if possible during the summer Then restart on meds mid to late November until Come off of meds if possible during the winter Assessment & Plan (12/17/2022 9:35 AM CDT): Try Zyrtec daily for current postnasal drip. Eczema 07/21/2018 Adhesive capsulitis of left shoulder 07/21/2018 Assessment & Plan (07/21/2018 5:01 PM CDT): Continue meloxicam as needed. Avoid cortisone injections due to poorly controlled blood sugars. Physical therapy recommended. Follow-up with orthopedist if no improvement. Osteopenia 02/01/2017 Assessment & Plan (02/28/2024 11:35 AM CDT): -chronic, stable -Discussed/ordered labs -continue on calcium and vitamin-D supplement daily -last bone density completed 10/17/2023. Repeat in 2 years Assessment & Plan (08/26/2023 3:28 PM CDT): -chronic, stable -Discussed/ordered labs -continue on calcium and vitamin-D supplement daily -last bone density completed 01/21/2014 -repeat bone density ordered today Assessment & Plan (05/26/2021 5:41 PM CURBING STONECUTTER): Continue calcium vitamin-D weight-bearing exercise repeat bone density scan per cutter operator asbestos shingle recommendations. Assessment & Plan (04/20/2020 8:17 PM CURBING STONECUTTER): Calcium, vitamin-D, weight-bearing exercise repeat bone density scan per cutter operator asbestos shingle recommendations. Assessment & Plan (10/03/2019 1:28 PM CDT): Calcium, vitamin-D, weight-bearing exercise repeat bone density imaging with her cutter operator asbestos shingle. Assessment & Plan (01/27/2019 2:21 PM CDT): Calcium, vitamin-D, weight-bearing exercise. She is to discussed repeat imaging with her cutter operator asbestos shingle. Assessment & Plan (02/01/2017 5:09 PM CDT): See above. Continue calcium, vitamin-D, weight-bearing exercise. Major depressive disorder 02/01/2017 Assessment & Plan (08/26/2023 3:29 PM CDT): -chronic, stable -Discussed/ordered labs -continue on venlafaxine XR 37.5 mg daily Patient reiterated no suicidal thoughts at this time; take medication as directed; contact 911 and go to the ER if becomes suicidal; discussed side effects of medication with patient; encouraged healthy diet and exericise; encouraged patient to see a counselor Assessment & Plan (02/19/2023 11:14 AM CDT): Stable on venlafaxine Assessment & Plan (02/06/2022 5:23 PM CDT): Well controlled on venlafaxine. Assessment & Plan (08/11/2020 2:45 PM CDT): Symptoms stable on her reduced dose of venlafaxine. Assessment & Plan (04/20/2020 8:18 PM CURBING STONECUTTER): Reduce venlafaxine to 37.5 mg daily. If symptoms worsen, go back to previous dose. Assessment & Plan (01/27/2019 2:22 PM CDT): Increase venlafaxine to 75 mg daily. Warned of side effects and call back if any develop. Assessment & Plan (07/21/2018 5:00 PM CDT): Better controlled on venlafaxine. Assessment & Plan (12/15/2017 2:49 PM CDT): Continue change generic Lexapro to venlafaxine. Call back if no improvement. Counseling recommended. DDD (degenerative disc disease), lumbar 02/02/20 17 Assessment & Plan (08/11/2020 2:45 PM CDT): Referral to pain management for further evaluation. Breast cancer 10/21/2013 Overview (02/16/2020): Completed 5 years of tamoxifen; followed by Dr Arora Assessment & Plan (02/28/2024 11:35 AM CDT): -Patient will be starting radiation therapy soon -continue follow up with breast surgeon and cutter operator asbestos shingle as directed Assessment & Plan (08/26/2023 3:30 PM CDT): -continue follow up with breast surgeon and cutter operator asbestos shingle as directed -screening mammogram ordered today Assessment & Plan (01/27/2019 2:22 PM CDT): Follow-up with her breast surgeon and cutter operator asbestos shingle as they direct. Assessment & Plan (12/15/2017 2:48 PM CDT): Follow-up with her breast surgeon as a direct. The also manage her bone density scans. Assessment & Plan (02/01/2017 5:09 PM CDT): Follow-up with her specialist over in [place] who also manages her bone density scans for osteopenia. Generalized anxiety disorder 09/12/2013 Overview (08/01/2016): ANXIETY STATE NOS Assessment & Plan (08/26/2023 3:31 PM CDT): -chronic, stable -Discussed/ordered labs -continue on venlafaxine XR 37.5 mg daily Patient reiterated no suicidal thoughts at this time; take medication as directed; contact 911 and go to the ER if becomes suicidal; discussed side effects of medication with patient; encouraged healthy diet and exericise; encouraged patient to see a counselor Vitamin D deficiency 09/12/2013 Overview (08/01/2016): Vitamin D deficiency Assessment & Plan (02/28/2024 11:34 AM CDT): -chronic, stable -Discussed/ordered labs -Continue vitamin D3 1000 units daily Assessment & Plan (08/26/2023 3:29 PM CDT): -chronic, stable -Discussed/ordered labs -start back on vitamin D3 1000 units daily Assessment & Plan (02/19/2023 11:16 AM CDT): Restart vitamin-D 1000 units daily and check level 1 year. Assessment & Plan (04/20/2020 8:16 PM CURBING STONECUTTER): Continue current supplementation and check level in 1 year. Assessment & Plan (10/03/2019 1:27 PM CDT): Continue current supplementation and check level in 6 months Assessment & Plan (01/27/2019 2:20 PM CDT): Continue current supplementation and check level in 1 year. Assessment & Plan (02/01/2017 5:06 PM CDT): Continue current supplementation and check level in 1 year. Hypertension associated with diabetes 09/12/2013 Overview (08/01/2016): BENIGN HYPERTENSION Assessment & Plan (02/28/2024 11:34 AM CDT): -chronic, stable -Discussed/ordered labs -continue on lisinopril 5 mg daily -recommend healthy, low-salt diet Assessment & Plan (01/28/2024 5:05 PM CDT): This is a chronic condition which is at goal. Goal is less than 140/90 Continue lisinopril Encouraged to monitor weight and B/P at home. Assessment & Plan (08/26/2023 3:29 PM CDT): -chronic, stable -Discussed/ordered labs -continue on lisinopril 5 mg daily -recommend healthy, low-salt diet Assessment & Plan (06/05/2023 4:05 PM CURBING STONECUTTER): This is a chronic condition which is at goal of less than 140/90 Personally reviewed labs. Continue lisinopril Encouraged to monitor weight and B/P at home Encouraged to take medications as prescribed. Assessment & Plan (02/19/2023 11:12 AM CDT): Blood pressure well controlled on lisinopril Assessment & Plan (12/17/2022 9:35 AM CDT): Denies coughing in between respiratory infections and there for will continue lisinopril for now. Assessment & Plan (10/22/2022 1:31 PM CDT): This is a chronic condition which is at goal of less than 140/90 Personally reviewed labs. Continue lisinopril Encouraged to monitor weight and B/P at home Encouraged to take medications as prescribed. Assessment & Plan (06/28/2022 1:15 PM CURBING STONECUTTER): This is a chronic condition which is at goal of <140/90 Personally reviewed labs. Continue lisinopril. Avoid caffeine, caffeine will raise blood pressure and excessive alcohol consumption. Monitor your weight and B/P. Encouraged to take medications as prescribed. Assessment & Plan (05/16/2022 12:47 PM CURBING STONECUTTER): Recommend DASH diet, heart-healthy lifestyle, exercise. Discussed the risks of hypertension. Assessment & Plan (02/27/2022 2:20 PM CDT): This is a chronic condition which is at goal Goal is <140/90 Personally reviewed labs. B/p today- at goal. Continue lisinopril. Avoid caffeine, caffeine will raise blood pressure and excessive alcohol consumption. Monitor your weight and B/P. Encouraged to take medications as prescribed. Assessment & Plan (02/06/2022 5:23 PM CDT): Reduce lisinopril to 5 mg daily and call back with any side effects. Assessment & Plan (08/17/2021 3:44 PM CDT): This is a chronic condition which is at goal Goal is <140/90 Personally reviewed labs. B/p today-112/60 on lisinopril. Avoid caffeine, caffeine will raise blood pressure and excessive alcohol consumption. Monitor your weight and B/P. Encouraged to take medications as prescribed. Assessment & Plan (05/26/2021 5:40 PM CURBING STONECUTTER): Well controlled on the current regimen. Avoidance of salt, proper body weight, and routine exercise recommended. Assessment & Plan (08/11/2020 2:44 PM CDT): Well controlled on the current regimen. Avoidance of salt, proper body weight, and routine exercise recommended. Assessment & Plan (05/05/2020 4:56 PM CURBING STONECUTTER): Well controlled on the current regimen. Avoidance of salt, proper body weight, and routine exercise recommended. Assessment & Plan (04/20/2020 8:19 PM CURBING STONECUTTER): Blood pressure stable. Patient noncompliant with medications making management difficult. Assessment & Plan (10/26/2019 1:01 PM CDT): Please take lisinopril daily and get BP rechecked locally every 2 weeks or so to ensure that it is below the target of <130/80 mmHg. No other changes since medication intake could be the problem. Assessment & Plan (10/03/2019 1:31 PM CDT): Well controlled on the current regimen. Avoidance of salt, proper body weight, and routine exercise recommended. Assessment & Plan (01/27/2019 2:22 PM CDT): Well controlled on the current regimen. Avoidance of salt, proper body weight, and routine exercise recommended. Assessment & Plan (07/21/2018 4:58 PM CDT): Well controlled on the current regimen. Avoidance of salt, proper body weight, and routine exercise recommended. Assessment & Plan (12/15/2017 2:47 PM CDT): Well controlled on the current regimen. Avoidance of salt, proper body weight, and routine exercise recommended. Assessment & Plan (02/01/2017 5:06 PM CDT): Well controlled on the current regimen. Avoidance of salt, proper body weight, and routine exercise recommended. Gastroesophageal reflux disease 09/12/2013 Overview (08/01/2016): ESOPHAGEAL REFLUX Assessment & Plan (08/26/2023 3:30 PM CDT): -chronic, stable Continue on current meds omeprazole 20 mg daily, encouraged healthy diet and exercise Avoid trigger foods including: carbonated beverages, caffeine, spicy, fried foods, tomatoes, cucumbers, mint, and acidic fruits/juices like orange/lemon/grapefruit. Avoid eating/drinking anything for at least 2 hours before bed. Sleep with bed propped. Discussed increased risk of cdif , bone loss and vit B12 deficiency with shelter use of PPI with pt, would like to remain on medication at this time Assessment & Plan (04/20/2020 8:18 PM CURBING STONECUTTER): Continue current PPI and the patient is aware of the long-term risks posed by chronic PPI usage. Calcium supplementation recommended. Assessment & Plan (10/03/2019 1:31 PM CDT): Continue current PPI and the patient is aware of the long-term risks posed by chronic PPI usage. Calcium supplementation recommended. Assessment & Plan (01/27/2019 2:22 PM CDT): Continue current PPI and the patient is aware of the long-term risks posed by chronic PPI usage. Calcium supplementation recommended. Assessment & Plan (07/21/2018 4:59 PM CDT): Continue current PPI and the patient is aware of the long-term risks posed by chronic PPI usage. Magnesium level will be checked periodically. Calcium supplementation recommended. Assessment & Plan (12/15/2017 2:47 PM CDT): Well controlled without medication currently. Assessment & Plan (02/01/2017 5:06 PM CDT): Continue current PPI and the patient is aware of the long-term risks posed by chronic PPI usage. Magnesium level will be checked periodically. Calcium supplementation recommended. Type 2 diabetes mellitus wit hout complication, with long-term current use of insulin ([facility]) 09/12/2013 Overview (08/01/2016): DMII WO CMP NT ST UNCNTR Assessment & Plan (02/28/2024 11:34 AM CDT): -chronic, stable -Discussed/ordered labs -continue seeing Kemi Golden NP endocrinology -continue on aspirin 81 mg daily, Xultophy 24 units daily, lisinopril 5 mg daily Assessment & Plan (01/28/2024 5:05 PM CDT): This is a chronic condition which is elevated, not at goal, worsened . Goal is less than 7%. Personally reviewed most recent A1c - Lab Results Component Value Date HGBA1C 8.3 01/28/2024 Personally reviewed POC blood sugar- elevated of 80-180 Lab Results Component Value Date POCGLU 133 01/28/2024 Medication- increase Xultophy 22 units daily Monitor blood sugar continuously with cgm. Encouraged annual eye exam. last dilated eye exam was [facility] Monofilament foot exam completed. Protective senses intact eGFR- 66 Kidney function-normal Urine microalbumin/creatinine ratio - at goal. Goal is <30 Continue lisinopril Assessment & Plan (08/26/2023 3:27 PM CDT): -chronic, stable -Discussed/ordered labs -continue seeing Kemi Golden NP endocrinology -continue on aspirin 81 mg daily, Xultophy 20 units daily, lisinopril 5 mg daily -recommend completing diabetic eye exam Assessment & Plan (06/05/2023 4:08 PM CURBING STONECUTTER): This is a chronic condition which is at goal of less than 7-8%. Personally reviewed most recent A1c - Lab Results Component Value Date HGBA1C 7.8 (H) 02/12/2023 Personally reviewed POC blood sugar- not at goal 80-180 Lab Results Component Value Date POCGLU 123 06/05/2023 Medication- Continue xultopy 20 units daily am to avoid nocturnal hypoglycemia. Monitor blood sugar 2 times a day. Encouraged annual eye exam. Monofilament foot exam completed. protective senses intact Personally reviewed CMP eGFR- 66 Kidney function- abnormal Urine microalbumin/creatinine ratio -at goal <30 treated with lisinopril B/P today- at goal of <140/90. continue lisinopril Personally reviewed lipid panel. Not at Goal of less than 70. Continue Zetia, does not tolerate statins Assessment & Plan (01/29/2023 3:15 PM CDT): This is a chronic condition which is worsening not at goal of less than 7%. Personally reviewed most recent A1c - Lab Results Component Value Date HGBA1C 7.6 01/29/2023 Personally reviewed POC blood sugar- at goal 80-180 Lab Results Component Value Date POCGLU 143 01/29/2023 Medication- decrease xultopy 20 units daily am to avoid nocturnal hypoglycemia. Monitor blood sugar continuously with sensor. Encouraged annual eye exam. Monofilament foot exam completed. protective senses intact Personally reviewed CMP eGFR- 68 Kidney function- abnormal Urine microalbumin/creatinine ratio - at goal <30 treated with lisinopril B/P today-at goal of <140/90 after 5 minutes of rest. continue lisinopril Personally reviewed lipid panel. Not at Goal of less than 70. Allergy to statin therapy Assessment & Plan (10/22/2022 1:29 PM CDT): This is a chronic condition which is not at goal of less than 7%. Personally reviewed most recent A1c - Lab Results Component Value Date HGBA1C 7.5 10/22/2022 Personally reviewed POC blood sugar- not at goal 80-180 Lab Results Component Value Date POCGLU 185 10/22/2022 Medication- decrease xultophy 24 units daily am to avoid hypoglycemia Monitor blood sugar continuously with freestyle mary 2 sensor. Encouraged annual eye exam. Monofilament foot exam completed. protective senses intact Reports numbness to great toes. Personally reviewed CMP eGFR- 68 Kidney function- abnormal Urine microalbumin/creatinine ratio - at goal <30 treated with lisinopril B/P today- at goal of <140/90. continue lisinopril Personally reviewed lipid panel. Not at Goal of less than 70. Continue pravastatin Assessment & Plan (06/28/2022 1:29 PM CURBING STONECUTTER): This is a chronic condition which is close to goal of less than 7% Personally reviewed last A1c-7.8% Personally reviewed blood sugar -204. Not at goal 80-180 Medication- continue Xultophy 26 units daily in am. Denies history of pancreatitis, nausea, vomiting or abd. Pain. Encouraged to call office for blood sugars less than 80. Monitor blood sugar 4 times a day with freestyle mary 2. Encouraged annual eye exam. Monofilament foot exam completed, protective senses intact,. Reports numbness to great toes. Urine microalbumin/creatinine ratio - 26. Continue lisinopril. At goal <30 Personally reviewed labs: cmp, GFR-68 Kidney function- normal B/P today- At goal. Continue lisinopril. blood pressure is <140/90. Personally reviewed LDL - 179. continue zetia-does not tolerate statins. Not at Goal of less than 70 No history of macrovascular disease - CVA, [place]. Continuous glucose monitor (cgm) applied from 06/15/2022 to 06/28/2022 This device was placed for monitor and treatment of blood sugar. Interpretation of data- In target 71% of the time. Hypoglycemia (54-69)- 6% of the time when she misses a meal. Average blood sugar-142. Assessment & Plan (02/27/2022 2:21 PM CDT): This is a chronic condition which is close to goal.. Personally reviewed last A1c- 8.4% Close to goal less than 7% Personally reviewed blood sugar -208. Not at goal 80-180 Medication- increase Xultophy 28 units daily in am. Denies history of pancreatitis, nausea, vomiting or abd. Pain. Encouraged to call office for blood sugars less than 80. Monitor blood sugar 4 times a day with [employer] mary 2. Encouraged annual eye exam. Monofilament foot exam completed, protective senses intact,. Reports numbness to great toes. Urine microalbumin/creatinine ratio - 26. Continue lisinopril. At goal <30 Personally reviewed labs: cmp, GFR-68 Kidney function- normal B/P today- At goal. Continue lisinopril. blood pressure is <140/90. Personally reviewed LDL - 179. continue zetia-does not tolerate statins. Not at Goal of less than 70 No history of macrovascular disease - CVA, [place]. Continuous glucose monitor (cgm) applied from 02/14/2022 to 02/27/2022 This device was placed for monitor and treatment of blood sugar. Interpretation of data- In target 43% of the time. Rare hypoglycemia 1% of the time when she misses a meal. Assessment & Plan (11/20/2021 4:02 PM CDT): This is a chronic condition which is close to Goal.. Personally reviewed last A1c- 7.3% Close to goal less than 7% Hypoglycemia with blood sugars 54-70. Personally reviewed blood sugar -206. Not at goal 80-180 Medication- Decrease Xultophy 22 units daily in am. Denies history of pancreatitis, nausea, vomiting or abd. Pain. Encouraged to call office for blood sugars less than 80. Monitor blood sugar 4 times a day with freestyle mary 2. Encouraged annual eye exam. Monofilament foot exam completed, protective senses intact,. Reports numbness to great toes. Urine microalbumin/creatinine ratio - 22 currently on lisinopril. At goal <30 Personally reviewed labs: BUN-14, creatinine- 0.93 GFR-67 Kidney function- normal B/P today- 126/70, currently on lisinopril. Not at goal blood pressure is <140/90 and as close to 120/80 as possible. Personally reviewed LDL - 141, currently on zetia-does not tolerate statins. Not at Goal of less than 70 No history of macrovascular disease - [place]. Assessment & Plan (08/17/2021 3:43 PM CDT): This is a chronic condition which is at goal per cgm readings. Personally reviewed last A1c- 9.8% at goal less than 7% 5.9% on the Freestyle mary 2 readings. Hypoglycemia with blood sugars 54-70. Personally reviewed blood sugar -176. at goal 80-180 Medication- Decrease Xultophy 26 units daily in am. Denies history of pancreatitis, nausea, vomiting or abd. Pain. Encouraged to call office for blood sugars less than 80. Monitor blood sugar 4 times a day with freestyle mary 2. Encouraged annual eye exam. Monofilament foot exam completed, protective senses intact,. Reports numbness to great toes. Urine microalbumin/creatinine ratio - 22 currently on lisinopril. At goal <30 Personally reviewed labs: BUN-14, creatinine- 0.93 GFR-67 Kidney function- normal B/P today- 112/60, currently on lisinopril. Not at goal blood pressure is <140/90 and as close to 120/80 as possible. Personally reviewed LDL - 141, currently on zetia-does not tolerate statins. Not at Goal of less than 70 No history of macrovascular disease - CV[place], [place]. Assessment & Plan (07/05/2021 2:04 PM CURBING STONECUTTER): This is a chronic condition which is not at goal. Personally reviewed A1c today- 9.8% Not at goal less than 7% Personally reviewed blood sugar -289. Not at goal 80-180 Medication- stop Tresiba 34 u qhs, Start Xultophy 30 units daily in am. It is covered on her insurance plan. Denies history of pancreatitis. Started Freestyle mary 2 cgm will return next week for download. Monitor blood sugar 4 times a day with freestyle mary. Encouraged annual eye exam. Monofilament foot exam completed, protective senses intact,. Reports numbness to great toes. Urine microalbumin/creatinine ratio - 22 currently on lisinopril. At goal <30 Personally reviewed labs: BUN-14, creatinine- 0.93 GFR-67 Kidney function- normal B/P today- 150/60, currently on lisinopril. Not at goal blood pressure is <140/90 and as close to 120/80 as possible. Personally reviewed LDL - 141, currently on zetia-does not tolerate statins. Not at Goal of less than 70 No history of macrovascular disease - CV[place], [place]. Assessment & Plan (06/07/2021 4:41 PM CURBING STONECUTTER): This is a chronic condition which is not at goal. Personally reviewed A1c today- 9.8% Not at goal less than 7% Personally reviewed blood sugar 134 goal 80-180 Medication- Continue Tresiba 34 u qhs, Humalog insulin 10 u 15 minutes prior to meals- hold for blood sugars less than 100. Discussed trying Xultophy as it is covered on her insurance plan. Does not want to do this at this time as she just refilled her Tresiba. Discussed insulin pump- declined this option Discussed Vgo insulin delivery system.- declined at this time. Discussed trying cgm - see agreed to this option. Monitor blood sugar 4 times a day. Encouraged annual eye exam. Monofilament foot exam completed, protective senses intact,. Reports numbness to great toes. Urine microalbumin/creatinine ratio - 22 currently on lisinopril. At goal <30 Personally reviewed labs: BUN-14, creatinine- 0.93 GFR-67 Kidney function- normal B/P today- 130/64, currently on lisinopril. At goal blood pressure is <140/90 and as close to 120/80 as possible. Personally reviewed LDL - 141, currently on zetia. Not at Goal of less than 70 No history of macrovascular disease - CVA, [place]. Assessment & Plan (05/26/2021 5:41 PM CURBING STONECUTTER): A1c above goal. Reduce her Tresiba to 34 units due to of morning hypoglycemia. She needs any more regular with her mealtime insulin. She does not want to drive to [place] for her Endocrinology appointments anymore. Referral to Kemi Golden. Assessment & Plan (08/11/2020 2:45 PM CDT): A1c much improved. Continue her Tresiba I have urged her to start her NovoLog pre meal insulin as well. Follow-up with her fingerprint technician as they direct. Continue work on diet exercise weight loss. Assessment & Plan (04/20/2020 8:17 PM CURBING STONECUTTER): A1c poorly controlled. Patient noncompliant with diet exercise and medication. She is to follow-up with Endocrinology for control of her diabetes. Long-term risks posed her health clearly explained. Assessment & Plan (02/22/2020 12:20 PM CDT): Glucose control is finally improving, thanks to Tresiba, which has a long half life, and pt is taking it at a regular time of day so she does not forget. A1c is still too high, however. Due to intolerance or cost of medications, we will stick with insulin. Recommendations: - Check your glucose before each meal and at bedtime - Continue Tresiba, 40 units daily - Start Humalog, 1 unit per 7 grams of carbohydrate or 2 units per 15 grams of carb - Correction factor: Add 1 unit if you are >160 mg/dl, 2 units if >200 mg/dl, 3 units if >240 mg/dl before meals. - Get a nutrition scale, Perfect Portions from [email or web address] to help with carb counting. - Make an appointment to see the diabetes educators to help with pre-meal dosing. - Let me know if you have any low glucoses, which might prompt a change in therapy. Assessment & Plan (10/26/2019 12:59 PM CDT): Glucose control is erratic and overall terrible. My recommendations are many, here are the basics: - Work on following a schedule for sleep and meals - Test your glucose 4X daily - Discontinue Levemir and start Tresiba, 40 units in the morning. Tresiba is not time sensitive, but missing doses will be problematic. - Start Trulicity, 0.75 mg weekly - Work with Justine Sethi RD, CDE on a carb consistent diet and increasing nutritional value of meals. - Follow-up with Justine weekly with glucoses - I recommend adding Humalog back, 2 meals per day if glucoses run higher than we would like; another option will be to increase the Tresiba. - See me in 3 - 4 months Assessment & Plan (10/03/2019 1:27 PM CDT): A1c poorly controlled. Importance of proper diet exercise weight loss and compliance with medications stressed at length. She is aware of the risks posed her health and the likely consequences of her poor glycemic control. Follow-up with her fingerprint technician as they direct. Assessment & Plan (01/27/2019 2:21 PM CDT): A1c remains grossly uncontrolled. She must check blood sugars 3 times daily record and turn into her fingerprint technician. She is be more compliant with diet and exercise. She should restart her metformin at a low dose. She needs to give her insulin as directed by her neurologist. The long-term risks posed her health with failure to do so discussed at length. She is aware that I would consider her high risk for any type of surgical procedure and would not be comfortable with her proceeding until sugars are improved. Assessment & Plan (07/21/2018 5:00 PM CDT): A1c poorly controlled. She needs to be more compliant her insulin injections, diet, exercise, weight loss. Follow up with her fingerprint technician as he directs. Patient is aware that I would not feel comfortable with her going through any surgical procedure with poorly controlled blood sugars as this would increase her risk of poor wound healing and perioperative infections. Assessment & Plan (12/15/2017 2:48 PM CDT): Remains poorly controlled. Follow-up with Endocrinology as they direct for further management of her insulin. Importance of adherence to proper diet exercise and medications discussed at length. Long-term risks posed her health with continued elevations in A1c discussed at length. Assessment & Plan (02/01/2017 5:07 PM CDT): A1c improved but still grossly uncontrolled. She needs to take her NovoLog before each meal. She is to be compliant with her metformin. She is to be compliant with diet exercise and weight loss. Follow up her fingerprint technician as he directs. Check blood sugars 3 times daily. She is a yearly diabetic eye exam. Monofilament testing is intact. GUICHO (obstructive sleep apnea) 06/26/2013 Overview (08/03/2016): Obstructive sleep apnea syndrome Assessment & Plan (02/28/2024 11:34 AM CDT): -chronic, not at/near goal -patient does not use a CPAP at this time -Continue seeing sleep Medicine Assessment & Plan (08/26/2023 3:28 PM CDT): -chronic, not at/near goal -patient does not use a CPAP at this time -referral placed to sleep medicine for further evaluation Assessment & Plan (02/19/2023 11:16 AM CDT): Previously diagnosed back in 2013 but never treated per her report. Complains of excessive daytime sleepiness, unrefreshing sleep and snoring. Home sleep study to document sleep apnea and then trial of APAP therapy if indicated. Call back for results Assessment & Plan (02/06/2022 5:22 PM CDT): Patient is compliant with the CPAP machine and gets symptomatic relief. Assessment & Plan (05/26/2021 5:41 PM CURBING STONECUTTER): Patient is compliant with the CPAP machine and gets symptomatic relief. Assessment & Plan (04/20/2020 8:17 PM CURBING STONECUTTER): Patient is compliant with the CPAP machine and gets symptomatic relief. Assessment & Plan (10/03/2019 1:28 PM CDT): Patient is compliant with the CPAP machine and gets symptomatic relief. Assessment & Plan (01/27/2019 2:21 PM CDT): Patient is compliant with the CPAP machine and gets symptomatic relief. Assessment & Plan (02/01/2017 5:06 PM CDT): Patient is compliant with the CPAP machine and gets symptomatic relief. Periodic limb movement disorder 06/26/2013 Overview (08/03/2016): Periodic limb movement disorder Assessment & Plan (10/26/2019 1:03 PM CDT): I see this with insulin deficiency, which causes other forms of electrolyte and nutritional deficiencies. Glucose control might help this problem, hopefully. I conveyed this to the patient. Assessment & Plan (02/01/2017 5:09 PM CDT): Stable on her Mirapex. Resolved Problems Problem Noted Date Diagnosed Date Resolved Date Hearing loss 02/19/2023 08/26/2023 Assessment & Plan (02/19/2023 11:13 AM CDT): Audiology referral. Respiratory tract infection 12/17/2022 08/26/2023 Assessment & Plan (12/17/2022 9:36 AM CDT): Most likely viral syndrome. Supportive care with fluids rest humidification codeine cough syrup and not drive while using this medication. Call back if end of the week if no improvement for trial of Z-Will. Skin lesion 12/17/2022 08/26/2023 Assessment & Plan (12/17/2022 9:36 AM CDT): Dermatology evaluation recommended Contusion of left shoulder 05/05/2020 0 08/26/2023 Assessment & Plan (05/05/2020 4:55 PM CURBING STONECUTTER): Rest ice gentle stretching exercises, meloxicam, physical therapy evaluation if no improvement orthopedic referral. Would recommend avoid using a shoulder splint due to previous adhesive capsulitis. Medicare annual wellness visit, subsequent 04/20/2020 08/26/2023 Assessment & Plan (02/19/2023 11:15 AM CDT): We discussed a comprehensive list of medical conditions and proposed recommendations for each. We discussed the importance of increased exercise, fall prevention, proper nutrition, and suggested joining [facility] to accomplish most of these goals. Patient was given an age appropriate Medicare preventive services checklist. Please see the EMR regarding details of their health risk assessment and preventive services checklist. Will see her back in 4 months with lab sooner if needed Assessment & Plan (05/26/2021 5:42 PM CURBING STONECUTTER): We discussed a comprehensive list of medical conditions and proposed recommendations for each. We discussed the importance of increased exercise, fall prevention, proper nutrition, and suggested joining [facility] to accomplish most of these goals. Patient was given an age appropriate Medicare preventive services checklist. Please see the EMR regarding details of their health risk assessment and preventive services checklist. Will see her back in 6 months with lab sooner if needed. Assessment & Plan (04/20/2020 8:19 PM CURBING STONECUTTER): We discussed a comprehensive list of medical conditions and proposed recommendations for each. We discussed the importance of increased exercise, fall prevention, proper nutrition, and suggested joining [facility] to accomplish most of these goals. Patient was given an age appropriate Medicare preventive services checklist. Please see the EMR regarding details of their health risk assessment and preventive services checklist. Will see her back in 6 months with lab sooner if needed. Medicare annual wellness visit, initial 01/27/2019 02/19/2023 Assessment & Plan (01/27/2019 2:24 PM CDT): We discussed a comprehensive list of medical conditions and proposed recommendations for each. We discussed the importance of increased exercise, fall prevention, proper nutrition, and suggested joining [facility] to accomplish most of these goals. Patient was given an age appropriate Medicare preventive services checklist. Please see the EMR regarding details of their health risk assessment and preventive services checklist. Will see her back in 6 months with lab sooner if needed. She is to request copies of her last mammogram and colonoscopy. At low risk for fall 01/27/2019 024 Assessment & Plan (02/19/2023 11:04 AM CDT): Timed get up and go test normal. Assessment & Plan (05/26/2021 5:41 PM CURBING STONECUTTER): Timed get up and go test normal. Assessment & Plan (04/20/2020 8:19 PM CURBING STONECUTTER): Timed get up and go test normal. Assessment & Plan (01/27/2019 2:23 PM CDT): Timed get up and go test normal. Subclinical hypothyroidism 07/21/2018 1 Assessment & Plan (08/26/2023 3:28 PM CDT): -chronic, stable -Discussed/ordered labs -patient does not take medication for this Assessment & Plan (02/19/2023 11:16 AM CDT): TSH and FT4 normal. Check again 1 year. Assessment & Plan (02/06/2022 5:22 PM CDT): Currently asymptomatic will check TSH and free T4 before next visit. Assessment & Plan (05/26/2021 5:41 PM CURBING STONECUTTER): TSH and free T4 normal and she is without symptoms. Check again 1 year. Assessment & Plan (08/11/2020 2:45 PM CDT): She remains asymptomatic will check TSH and free T4 before next visit. Assessment & Plan (04/20/2020 8:17 PM CURBING STONECUTTER): Asymptomatic and will check thyroid levels once yearly. Assessment & Plan (02/22/2020 12:24 PM CDT): Mildly elevated TSH has corrected, continue to follow. Assessment & Plan (10/03/2019 1:27 PM CDT): Check TSH and free T4 before next visit. She remains asymptomatic. Assessment & Plan (01/27/2019 2:21 PM CDT): She remains asymptomatic will check thyroid levels in 1 year. Assessment & Plan (07/21/2018 5:00 PM CDT): Check TSH and free T4 before next visit. Currently asymptomatic. Herpes zoster 07/26/2017 08/26/2023 Healthcare maintenance 02/01/201708/25 Assessment & Plan (02/01/2017 5:10 PM CDT): Will update her flu shot today. Tetanus booster every 10 years. Yearly mammogram. Father cutter operator asbestos shingle for Pap smears as they direct. Colonoscopy is due no later than December 2023 for history of previous tubular adenomas but with last colonoscopy without polyps. Mixed diabetic hyperlipidemi a associated with type 2 diabetes mellitus 09/12/2013 06/05/2023 Overview (06/05/2023): >>OVERVIEW FOR HYPERLIPIDEMIA WRITTEN ON 12/17/2022 9:25 AM BY MARY PADRON MD Failed crestor due to muscle spasms. Failed atorvastatin due to leg aches. Failed pravastatin due to leg muscle spasms. Assessment & Plan (06/05/2023 4:04 PM CURBING STONECUTTER): >>ASSESSMENT AND PLAN FOR HYPERLIPIDEMIA WRITTEN ON 02/01/2017 5:08 PM BY MARY PADRON MD LDL much better controlled on atorvastatin. Assessment & Plan (06/05/2023 4:04 PM CURBING STONECUTTER): >>ASSESSMENT AND PLAN FOR HYPERLIPIDEMIA WRITTEN ON 12/15/2017 2:48 PM BY MARY PADRON MD Continue atorvastatin. Assessment & Plan (06/05/2023 4:04 PM CURBING STONECUTTER): >>ASSESSMENT AND PLAN FOR HYPERLIPIDEMIA WRITTEN ON 07/21/2018 5:00 PM BY MARY PADRON MD Hold her atorvastatin to see if this helps her lower extremity muscle spasms. Continue Zetia for now Assessment & Plan (06/05/2023 4:04 PM CURBING STONECUTTER): >>ASSESSMENT AND PLAN FOR HYPERLIPIDEMIA WRITTEN ON 01/27/2019 2:22 PM BY MARY PADRON MD Well controlled on current therapy and will check a lipid panel and LFTs in 6 months. Assessment & Plan (06/05/2023 4:04 PM CURBING STONECUTTER): >>ASSESSMENT AND PLAN FOR HYPERLIPIDEMIA WRITTEN ON 10/03/2019 1:29 PM BY MARY PADRON MD She needs to make sure that she is taking her Zetia and atorvastatin. Assessment & Plan (06/05/2023 4:04 PM CURBING STONECUTTER): >>ASSESSMENT AND PLAN FOR HYPERLIPIDEMIA WRITTEN ON 10/26/2019 1:02 PM BY MIRZA MONTALVO MD Recheck lipids after A1c and glucoses correct. The combination of lower glucoses and GLP1 may have a positive effect on TG in particular, also TC. Assessment & Plan (06/05/2023 4:04 PM CURBING STONECUTTER): >>ASSESSMENT AND PLAN FOR HYPERLIPIDEMIA WRITTEN ON 05/05/2020 3:24 PM BY MARY PADRON MD Non compliant with her atorvastatin and would recommend restarting and the rationale for this discussed at length. Long-term risks posed her health with failure to do so discussed at length. Assessment & Plan (06/05/2023 4:04 PM CURBING STONECUTTER): >>ASSESSMENT AND PLAN FOR HYPERLIPIDEMIA WRITTEN ON 02/22/2020 12:24 PM BY MIRZA MONTALVO MD LDL is way too high for someone with T2DM. Please do the following: - Take atorvastatin every day - Take ezetimibe every day - Discuss with Dr. Padron next steps and recheck. Assessment & Plan (06/05/2023 4:04 PM CURBING STONECUTTER): >>ASSESSMENT AND PLAN FOR HYPERLIPIDEMIA WRITTEN ON 05/05/2020 4:56 PM BY MARY PADRON MD She has not filled Crestor and atorvastatin due to lower extremity complaints. Try Zetia alone. Try pravastatin next visit if needed. Assessment & Plan (06/05/2023 4:04 PM CURBING STONECUTTER): >>ASSESSMENT AND PLAN FOR HYPERLIPIDEMIA WRITTEN ON 08/11/2020 2:44 PM BY MARY PADRON MD Let us try pravastatin Saturday and Saturday and call back if she develops any side effects and will discontinue it at that point. Continue Zetia. Assessment & Plan (06/05/2023 4:04 PM CURBING STONECUTTER): >>ASSESSMENT AND PLAN FOR HYPERLIPIDEMIA WRITTEN ON 05/26/2021 5:41 PM BY MARY PADRON MD Stable on Zetia and pravastatin Assessment & Plan (06/05/2023 4:04 PM CURBING STONECUTTER): >>ASSESSMENT AND PLAN FOR HYPERLIPIDEMIA WRITTEN ON 06/07/2021 4:35 PM BY KEMI GOLDEN NP This is a chronic condition which is not at goal. Goal is less than 70. Personally reviewed lipid panel. LDL- 141. On zetia. Encouraged to eat healthy, include fresh fruits and vegetables daily and avoid eating fried foods more than once per week. Encouraged to take medications as prescribed. Assessment & Plan (06/05/2023 4:04 PM CURBING STONECUTTER): >>ASSESSMENT AND PLAN FOR HYPERLIPIDEMIA WRITTEN ON 07/05/2021 1:14 PM BY KEMI GOLDEN NP This is a chronic condition which is not at goal. Goal is less than 70. Personally reviewed lipid panel. LDL- 141. On zetia. Failed crestor due to muscle spasms. Failed atorvastatin due to leg aches. Encouraged to eat healthy, include fresh fruits and vegetables daily and avoid eating fried foods more than once per week. Encouraged to take medications as prescribed. Assessment & Plan (06/05/2023 4:04 PM CURBING STONECUTTER): >>ASSESSMENT AND PLAN FOR HYPERLIPIDEMIA WRITTEN ON 11/20/2021 4:02 PM BY KEMI GOLDEN NP This is a chronic condition which is not at goal. Goal is less than 70. Personally reviewed lipid panel. LDL- 141. On zetia. Failed crestor due to muscle spasms. Failed atorvastatin due to leg aches. Encouraged to eat healthy, include fresh fruits and vegetables daily and avoid eating fried foods more than once per week. Encouraged to take medications as prescribed. Assessment & Plan (06/05/2023 4:04 PM CURBING STONECUTTER): >>ASSESSMENT AND PLAN FOR HYPERLIPIDEMIA WRITTEN ON 12/17/2022 9:35 AM BY MARY PADRON MD Failed 3 different statins. Recommend diet exercise and retry Zetia and check lipids before next visit. Assessment & Plan (06/05/2023 4:04 PM CURBING STONECUTTER): This is a chronic condition which is not at goal of LDL less than 70 Continue Zetia. Does not tolerate statins Encouraged to eat healthy, include fresh fruits and vegetables daily and avoid eating fried foods more than once per week. Encouraged to take medications as prescribed. Assessment & Plan (06/05/2023 4:04 PM CURBING STONECUTTER): >>ASSESSMENT AND PLAN FOR TYPE 2 DIABETES MELLITUS WITH HYPERLIPIDEMIA (HCC) WRITTEN ON 02/19/2023 11:16 AM BY MARY PADRON MD A1c just above goal but much improved from her baseline over the past few years. Follow-up with her fingerprint technician as they direct. >>ASSESSMENT AND PLAN FOR HYPERLIPIDEMIA WRITTEN ON 02/19/2023 11:14 AM BY MARY PADRON MD LDL poorly controlled. Diet exercise discussed. Discussed Zetia and how it is different from statin therapy and should not cause muscle cramping. Patient willing to try again. If no success by next visit, would suggest Repatha Assessment & Plan (01/29/2023 3:14 PM CDT): This is a chronic condition which is not at goal of LDL less than 70 Allergy to statin therapy Encouraged to eat healthy, include fresh fruits and vegetables daily and avoid eating fried foods more than once per week. Encouraged to take medications as prescribed. Assessment & Plan (10/22/2022 1:30 PM CDT): This is a chronic condition which is not at goal of LDL less than 70 Continue pravastatin. Encouraged to eat healthy, include fresh fruits and vegetables daily and avoid eating fried foods more than once per week. Encouraged to take medications as prescribed. Assessment & Plan (06/28/2022 1:14 PM CURBING STONECUTTER): This is a chronic condition which is not at goal. Goal is less than 70. Personally reviewed lipid panel. LDL- 179. On zetia. Failed crestor due to muscle spasms. Failed atorvastatin due to leg aches. Encouraged to eat healthy, include fresh fruits and vegetables daily and avoid eating fried foods more than once per week. Encouraged to take medications as prescribed. Assessment & Plan (02/27/2022 2:19 PM CDT): This is a chronic condition which is not at goal. Goal is less than 70. Personally reviewed lipid panel. LDL- 179. On zetia. Failed crestor due to muscle spasms. Failed atorvastatin due to leg aches. Encouraged to eat healthy, include fresh fruits and vegetables daily and avoid eating fried foods more than once per week. Encouraged to take medications as prescribed. Assessment & Plan (06/05/2023 4:04 PM CURBING STONECUTTER): >>ASSESSMENT AND PLAN FOR TYPE 2 DIABETES MELLITUS WITH HYPERLIPIDEMIA (HCC) WRITTEN ON 02/06/2022 5:23 PM BY MARY PADRON MD Much better controlled with Kemi's help. Continue current medication regimen diet exercise and will check A1c again before next visit. >>ASSESSMENT AND PLAN FOR HYPERLIPIDEMIA WRITTEN ON 02/06/2022 5:23 PM BY MARY PADRON MD Restart her pravastatin and Zetia and check lipids and LFTs before next visit. Adiposity 06/26/2013 02/01/2017 Overview (08/01/2016): Obesity Hypersomnia 06/26/2013 02/01/2017 Overview (08/01/2016): Hypersomnia Immunizations Name Administration Dates Next Due COVID-19 mRNA ([employer]) 0.3 m L (30 mcg) vaccine (12 years and up) 01/14/2023 Influenza, Quadrivalent, Hig h Dose, Preservative Free, Intrr 01/14/2023,05/25/2022,05/26/2021,02/15 Influenza, Quadrivalent, Spl it, Preservative Free, Intradermal 03/31/2015 Influenza, Quadrivalent, Spl it, Preservative Free, Intramuscular 02/01/2017 Influenza, Split 04/10/2013,03/02/2011 Influenza, Trivalent, High D ose, Split, Preservative Free, Intramuscular 01/27/2019,02/12/2018 Influenza, Trivalent, Recomb inant, Egg Free, Preservative Free, Antibiotic Free, IM (FLUBLOK) 03/05/2014,03/05/2014 Influenza, Unspecified 05/16/2022(Deferr ed: Patient Refused),01/27/2019(Deferred: Patient Refused) Pfizer SARS-CoV-2 Monovalent Vaccination (12+ Yrs) PURPLE 05/25/2022,07/25/2020,06/23/2020 Pneumococcal Conjugate PCV 13 01/27/2019 Pneumococcal Polysaccharide PPV23 03/31/2015 Tdap 05/30/2009 Social History Tobacco Use Types Packs/Day Years Used Date Smoking Tobacco: Never Smokeless Tobacco: Never Tobacco Cessation:Counseling Given: Not Answered Alcohol Use Standard Drinks/Week Comments No 0 (1 standard drink = 0.6 oz pur e alcohol) Social Connection and Isolat ion Panel [NHANES] Answer Date Recorded In a typical week, how many times do you talk on the phone with family, friends, or neighbors? More than three times a week 05/13/2020 How often do you get togethe r with friends or relatives? More than three times a week 05/13/2020 Attends [employer] Not on file 05/13 Active Member of Clubs or Organizations Not on f ile 05/13/2020 Attends Club or Organization Meetings Not on aquiles e 05/13/2020 Are you , , di vorced, , never , or living with a partner? 05/13/2020 AUDIT-C Answer Date Recorded Q1: How often do you have a drink containing alcohol? Never 02/26/2024 Q2: How many drinks containi ng alcohol do you have on a typical day when you are drinking? Patient does not drink Q3: How often do you have si x or more drinks on one occasion? Never 02/26/2024 Overall Financial Resource Strain (CARDIA) Answe r Date Recorded How hard is it for you to pa y for the very basics like food, housing, medical care, and heating? Not hard at all 05/13/2020 PHQ-2 Answer Date Recorded PHQ-2 Total Score (If total score is 3 or more points, staff should administer the PHQ-9) 0 02/26/2024 Hunger Vital Sign Answer Date Recorded Within the past 12 months, y ou worried that your food would run out before you got the money to buy more. Never true 05/13/19 21 Within the past 12 months, t he food you bought just didn't last and you didn't have money to get more. Never true 05/13/2020 PRAPARE - Transportation Answer Date Re corded In the past 12 months, has l ack of transportation kept you from medical appointments or from getting medications? No 04/29 In the past 12 months, has l ack of transportation kept you from meetings, work, or from getting things needed for daily living? No 05/13/2020 Comments No Sex and Gender Information Value Date Recorded Sex Assigned at Not on file Legal Sex Female 7:03 PM [employer] Gender Identity Not on file Sexual Orientation Not on file Last Filed Vital Signs Vital Sign Reading Time Taken Comments Blood Pressure 117/78 02/26/2024 1:49 PM CDT Pulse 83 02/26/2024 1:49 PM CDT Temperature 36.8 ??C (98.3 ??F) 02/26/2024 1:49 PM CD T Respiratory Rate 16 02/26/2024 1:49 PM CDT Oxygen Saturation 98% 02/26/2024 1:49 PM CDT Inhaled Oxygen Concentration - - Weight 63 kg (139 lb) 02/26/2024 1:49 PM CDT Height 150.4 cm (4' 11.21 ) 02/26/2024 1:49 PM C DT Body Mass Index 27.87 02/26/2024 1:49 PM CDT Plan of Treatment Upcoming Encounters Date Type Department Care Team (Late st Contact Info) Description 06/29/2024 11:30 AM [employer] Hospital Encounter [address] [id number] Herrera Caceres, DO [address] [facility] [address] [place] [address] 06/29/2024 11:30 AM [employer]ING STONEC[employer] - 06/29/2024 12:00 PM [employer] Surgery [facility] [address] [place] [address] Herrera Caceres, DO [address] [facility] [address] [place] [address] COLONOSCOPY Scheduled Procedures Name Priority Associated Diagnoses Date/Ti me COLONOSCOPY Hx of colonic polyps 06/29/2024 11:30 AM [employer]ING STON[employer] Medical Devices Implanted Type Area Jd Edwards Consultant Device Identifier Shelf Expiration Date Model / Serial / Lot Bard Peripheral Vascular Ultraclip Bard 17ga 10cm 2 Trigger Permanent Ultrasound [id number] - [id number] - [id number] Implanted:Qty: 1 on 12/05/2023 by Davian Banks MD at [facility] Breast Right: Breast Bard Peripheral [employer] 09/23/2025 [id number] / [id number] Description:Implanted Right Breast 8:00 area 5 cmfn Procedures Procedure Name Priority Date/Time Associated Diagnosis Comments EGFR Routine 01/28/2024 2:44 PM CDT Type 2 diabetes mellitus with hyperglycemia, with long-term current use of insulin (HCC) LIPID PANEL Routine 01/28/2024 2:44 PM CDT Type 2 diabetes mellitus with hyperglycemia, with long-term current use of insulin (HCC) ALBUMIN CREATININE RATIO, URINE Routine 01/28/2024 2:44 PM CDT Type 2 diabetes mellitus with hyperglycemia, with long-term current use of insulin (HCC) POCT HEMOGLOBIN A1C Routine 01/28/2024 2 :15 PM CDT Type 2 diabetes mellitus with hyperglycemia, with long-term current use of insulin (HCC) DIABETIC EYE EXAM Routine 12/12/2023 SCREENING MAMMOGRAM BILATERAL W FABIAN Schedule Routine, Read Routine (OP Routine) 10/17/2023 1:25 PM CDT Breast cancer screening by mammogram DEXA AXIAL SKELETON BONE DENSITY 1 OR MORE SITES Schedule Routine, Read Routine (OP Routine) 10/17/2023 1:06 PM CDT Postmenopausal Osteoporosis screening HM DIABETES FOOT EXAM Routine 03/08/2017 COLONOSCOPY Routine 01/24/2017 SERUM HEPATITIS C AB Routine 07/16/2016 10:29 AM CDT from Last 3 Months or Most Recently Relevant to Health Maintenance Results * eGFR (01/28/2024 2:44 PM CDT) eGFR 62 >=60 mL/min/1. 73 m2 Comment: Interpretive Data Reference Interval Normal ?>/= 90 mL/min/1.73m2 Mildly decreased* ? 60 - 89 mL/min/1.73m2 Mildly to moderately decreased ?45 - 59 mL/min/1.73m2 Moderately to severely decreased ??30 - 44 mL/min/1.73m2 Severely decreased ?15 - 29 mL/min/1.73m2 Kidney Failure ?< 15 ??mL/min/1.73m2 *Relative to young adult level Estimated glomerular filtration rate is determined by the 2020 CKD-EPI equation recommended by the National Kidney Foundation (A Unifying Approach to GFR Estimation: Recommendations of the NKF-ASK Task Force on Reassessing the Inclusion of Race in Diagnosing Kidney Disease, JASN 202). The CKD-EPI equation should not be used for patients with unstable renal function and has not been validated in children and those over 70. Current interpretive data was last reviewed 2021. Blood 01/28/2024 2:44 PM CDT 01/28/2024 6:23 PM CDT Kemi Golden HAT TRIMMER LAB BLOOD ORDERABLES Final Resu lt Performing Organization Address [facility] de Phone Number [facility]NOTE 3] [id number] [address] [facility] [employer] [employer] [place] [address] * (ABNORMAL) Albumin Creatinine Ratio, Urine (01/28/2024 2:44 PM CDT) Albumin Ur 27.5 mg/L Comment: Interpretive Data No reference range established. Current interpretive data was last revised 2018. Creatinine Ur 69.2 mg/dL [facility] Comment: Interpretive Data No reference range established. Current interpretive data was last revised 2018. Albumin Creatinine Ratio, Ur 40(H) 1 - 29 mg/g [facility] Urine 01/28/2024 2:44 PM CDT 01/28/2024 6:22 PM CDT Kemi Golden HAT TRIMMER LAB URINE ORDERABLES Final Resu lt Performing Organization Address [facility] de Phone Number [facility] [phone] [address] [employer] [place] [address] * (ABNORMAL) Lipid panel (01/28/2024 2:44 PM CDT) Cholesterol 249(H) 30 - 199 mg/dL Comment: Interpretive Data Ages < or = 19 years ??Acceptable: ? <170 mg/dL ??Borderline high: ??170-199 mg/dL ??High: ? >or= 200 mg/dL Ages > or = 20 years ??Desirable: ?<200 mg/dL ??Borderline high: ??200-239 mg/dL ??High: ? >or= 240 mg/dL Literature References: 1. Expert Panel on Integrated Guidelines for Cardiovascular Health and Risk Reduction in Children and Adolescents. Pediatrics 2011;128:S213 2. NCEP Expert Panel. Circulation 2004;110:227 Current Interpretive Data was last revised on 2017. Triglycerides 271(H) <=149 mg/dL [facility] Comment: Interpretive Data Ages < or = 9 years ??Acceptable: ? <75 mg/dL ??Borderline high: ??75-99 mg/dL ??High: ? >or= 100 mg/dL Ages 10 to 20 years ??Acceptable: ? <90 mg/dL ??Borderline high: ??90-129 mg/dL ??High: ? >or= 130 mg/dL Ages > or = 20 years ??Desirable: ?<150 mg/dL ??Borderline high: ??150-199 mg/dL ??High: ? 200-499 mg/dL ?Very high: ?? >or= 499 mg/dL Literature References: 1. Expert Panel on Integrated Guidelines for Cardiovascular Health and Risk Reduction in Children and Adolescents. Pediatrics 2011;128:S213 2. NCEP Expert Panel. Circulation 2004;110:227 Current Interpretive Data was last revised on 2017. HDL 44 >=40 mg/dL [facility] Comment: Interpretive Data Ages < or = 19 years ??Acceptable: ? >45 mg/dL ??Borderline low: ?? 40-45 mg/dL ??Low: ? <40 mg/dL Ages > or = 20 years ??Desirable: ?>or= 60 mg/dL ??Low: ? <40 mg/dL Literature References: 1. Expert Panel on Integrated Guidelines for Cardiovascular Health and Risk Reduction in Children and Adolescents. Pediatrics 2011;128:S213 2. NCEP Expert Panel. Circulation 2004;110:227 Current Interpretive Data was last revised on 2017. LDL, calculated 155(H) <=129 mg/dL [facility] Comment: Interpretive Data Ages < or = 19 years ??Acceptable: ? <110 mg/dL ??Borderline high: ??110-129 mg/dL ??High: ?>or= 130 mg/dL Ages > or = 20 years ??Optimal: ? <100 mg/dL ??Near optimal: ?100-129 mg/dL ??Borderline high: ?? 130-159 mg/dL ??High: ?>160 mg/dL Calculated using the Cyrus LDL-C estimating equation. This equation was implemented on 2023. Prior to this date LDL-C was estimated using the Friedewald equation. Literature References: 1. Expert Panel on Integrated Guidelines for Cardiovascular Health and Risk Reduction in Children and Adolescents. Pediatrics 2011;128:S213 2. NCEP Expert Panel. Circulation 2004;110:227 3. Cyrus Rocha et al. YOSELYN Cardiol. 2020 August 27;5(5):540-548. doi: 10.1001/jamacardio.2020.0013 Current Interpretive Data was last revised on 2023. Non-HDL Cholesterol 205 mg/dL [facility] Comment: Interpretive Data Ages < or = 19 years ??Acceptable: ?<120 mg/dL ??Borderline high: ??120-144 mg/dL ??High: ?>145 mg/dL Ages > or = 20 years ??When triglycerides are >200 mg/dL, Non-HDL cholesterol is a secondary target of ? therapy with treatment goals that are 30 mg/dL greater than the LDL cholesterol target. ? Literature References: 1. Expert Panel on Integrated Guidelines for Cardiovascular Health and Risk Reduction in Children and Adolescents. Pediatrics 2011;128:S213 2. NCEP Expert Panel. Circulation 2004;110:227 Current Interpretive Data was last revised on 2017. Chol/HDL ratio 6 [facility] Blood 01/28/2024 2:44 PM CDT 01/28/2024 6:22 PM CDT Narrative [facility] - 01/28/2024 6:45 PM CDT These lab test should be done fasting. This means do not eat or drink for at least 12 hours prior to getting your blood drawn. Has the patient been fasting for 8 hours or more?->Yes Kemi Golden NP LAB BLOOD ORDERABLES Final Resu lt [facility] [place] [id number] [address] [facility] [place] [address] * (ABNORMAL) POCT hemoglobin A1c (01/28/2024 2:15 PM CDT) Hemoglobin A1C, POC 8.3 4.0 - 5.6 % Blood 01/28/2024 2:15 PM CDT Kemi Golden NP POINT OF CARE TEST ORDERABLES F inal Result * (ABNORMAL) Diabetic Eye Exam (12/12/2023) Generic External Data Provider [facility] MAINTENANC E Final Result * (ABNORMAL) Screening Mammogram Bilateral W Fabian (10/17/2023 1:25 PM CDT) Anatomical Region Laterality Modality Breast Bilateral Mammography 10/25/2023 9:24 AM CDT Impressions 10/25/2023 9:24 AM CDT Focal asymmetry in the central right breast is indeterminant. The patient should return for additional diagnostic mammographic images of the right breast with targeted right breast ultrasound scheduled. BI-RADS: 0 - Additional imaging evaluation is necessary. The patient has been or will be contacted. Electronically signed by: Reba Salazar M.D. Narrative 10/25/2023 9:24 AM CDT EXAMINATION: SCREENING MAMMOGRAM BILATERAL W FABIAN ORDERING HEALTHCARE PROVIDER: KINJAL DOMINGO HISTORY: Routine screening mammography. COMPARISON: ??12/25/2021, 12/26/2020, 12/07/2019, 12/17/2018 TECHNIQUE: CC and MLO views of the bilateral breasts were obtained with digital technique using breast tomosynthesis with C view. Computer aided detection was utilized. FINDINGS: DENSITY: There are scattered fibroglandular elements in the bilateral breasts. BREASTS: There is postoperative change in the bilateral breasts. Scattered microcalcifications are present in the left breast. ??There is a biopsy marker clip in the left breast. ??There is a new focal asymmetry in the central right breast. ??There are no other suspicious masses, suspicious calcifications, or other suspicious findings in either breast. Kinjal Domingo NP IMG MAMMO PROCEDURES Final R esult * Dexa Axial Skeleton Bone Density 1 or 2 Site (10/17/2023 1:06 PM CDT) Anatomical Region Laterality Modality Body N/A Other 10/17/2023 10:3 4 PM CDT Narrative 10/17/2023 10:35 PM CDT EXAM DESCRIPTION: DEXA AXIAL SKELETON BONE DENSITY 1 OR MORE SITES REASON FOR STUDY: 68 y/o ?? year old ??F ??with given history of: ??screening ?? Osteoporosis screening ??Post menopausal ? Jd Edwards Consultant/Model: Snoobe SL (S/N [id number]) CLINICAL INFORMATION: Current height: ??59.5 ??inches ? Maximum height: ??62 ??inches ? Weight: ??136 ??pounds Risk factors: ??Postmenopausal, adult fracture COMPARISON: None available FINDINGS: AP LUMBAR SPINE L1-L4: Total BMD is 0.938 g/cm2 T-score is -1.0 LEFT HIP: Total BMD is 0.750 g/cm2 T-score is -1.6 Femoral neck BMD is 0.578 g/cm2 T-score is -2.4 ?? FRAX: 10 year risk for a major osteoporotic fracture is 21 %, 10 year risk for a hip fracture is 5.0 % IMPRESSION: Low Bone Mass. REFERENCE: Bone mineral density: T-Score: ?Normal (T-score above or = -1.0) ?Low bone mass ??(T-score between -1.0 and -2.5) replaces the previously used term osteopenia ?Osteoporosis (T-score = or below -2.5) Z-Score: ? Within the expected range for age (Z-score above -2.0) ? Below the expected range for age (Z-score is -2.0 or below) Please see below follow up recommendations. Medical evaluation for secondary causes of low bone mineral density may be appropriate. FRAX is a World Health Organization validated fracture risk assessment tool that calculates a person's 10 year probability of a major osteoporosis related fracture and hip fracture. ??According to the National Osteoporosis Foundation guidelines, postmenopausal women and men age 50 or older with low bone mass and a 10 year probability of a major osteoporosis related fracture = or greater than 20% or a 10 year probability of a hip fracture = or greater than 3% should be considered for pharmacological treatment for the prevention of osteoporosis. For further information, including treatment recommendations, please refer to the 2019 ISCD Official Positions (http://www.iscd.org) and the NOF's Clinician's Guide to Prevention and Treatment of Osteoporosis (http://www.nof.org/professionals/clinical-guidelines) THIS IS AN ELECTRONICALLY VERIFIED FINAL REPORT 10/17/2023 10:35 PM - Electronically signed by ??Trell Arias M.D. MF: [email or web address] D: ??10/17/2023 10:35 PM T: ??10/17/2023 10:35 PM Report ID: [id number] Reading Location: ??[id number] Procedure Note Trell Arias MD - 10/17/2023 EXAM DESCRIPTION: DEXA AXIAL SKELETON BONE DENSITY 1 OR MORE SITES REASON FOR STUDY: 68 y/o year old F with given history of: screening Osteoporosis screening Post menopausal Jd Edwards Consultant/Model: Datapipe (S/N [id number]) CLINICAL INFORMATION: Current height: 59.5 inches Maximum height: 62 inches Weight: 136 pounds Risk factors: Postmenopausal, adult fracture COMPARISON: None available FINDINGS: AP LUMBAR SPINE L1-L4: Total BMD is 0.938 g/cm2 T-score is -1.0 LEFT HIP: Total BMD is 0.750 g/cm2 T-score is -1.6 Femoral neck BMD is 0.578 g/cm2 T-score is -2.4 FRAX: 10 year risk for a major osteoporotic fracture is 21 %, 10 year risk for ahip fracture is 5.0 % IMPRESSION: Low Bone Mass. REFERENCE: Bone mineral density: T-Score: Normal (T-score above or = -1.0) Low bone mass (T-score between -1.0 and -2.5) replaces thepreviously used term osteopenia Osteoporosis (T-score = or below -2.5) Z-Score: Within the expected range for age (Z-score above -2.0) Below the expected range for age (Z-score is -2.0 or below) Please see below follow up recommendations. Medical evaluation forsecondary causes of low bone mineral density may be appropriate. FRAX is a World Health Organization validated fracture risk assessmenttool that calculates a person's 10 year probability of a major osteoporosisrelated fracture and hip fracture. According to the National OsteoporosisFoundation guidelines, postmenopausal women and men age 50 or older with low bonemass and a 10 year probability of a major osteoporosis related fracture = or greater than 20% or a 10 year probability of a hip fracture = or greaterthan 3% should be considered for pharmacological treatment for the preventionof osteoporosis. For further information, including treatment recommendations, please referto the 2019 ISCD Official Positions (http://www.iscd.org) and the NOF's Clinician's Guide to Prevention and Treatment of Osteoporosis (http://www.nof.org/professionals/clinical-guidelines) THIS IS AN ELECTRONICALLY VERIFIED FINAL REPORT 10/17/2023 10:35 PM - Electronically signed by Trell Arias M.D. MF: [email or web address] Report ID: [id number] Reading Location: [place] [address] Kinjal Domingo NP IMG DXA PROCEDURES Final Res ult * DIABETES FOOT EXAM (03/08/2017) Pathologist [facility] Diabetic Foot Exam Unknown Historical Provider HEALTH MAINTENANCE Final Result * Colonoscopy (01/24/2017) Anatomical Region Laterality Modality Other Historical Provider ENDOSCOPY PROCEDURES Shirley l Result * (ABNORMAL) Serum Hepatitis C ab (07/16/2016 10:29 AM CDT) HCV ab REACTIVE( A) NON-REACT INOCENCIO CDR HISTORICAL RESULTS Hepatitis signal to cutoff ratio 1.20(H) <1.00 CDR HISTORICAL RESULTS Comment: Following CDC recommendations (MMWR No. 62, 2013), this patient's HCV Antibody Reactive sample will be tested for the presence of HCV RNA by a Nucleic Acid Amplification Test (NAAT) to determine if the patient has an active HCV infection. Serum 07/16/2016 10:2 9 AM CDT us Historical Provider LAB BLOOD ORDERABLES Shirley l Result CDR HISTORICAL RESULTS from Last 3 Months or Most Recently Relevant to Health Maintenance Insurance MEDICARE [facility] MEDICARE [employer] [place] [address] Care Teams Application Support Engineer Relationship Specialty Start Date End Date Kinjal Domingo NP [address] [facility] [address] [place] [id number] PCP - General Family Medicine 08/26/23
--- OUTSIDE RECORDS SUMMARY | 2024-05-29 15:58 | XMS_ITS | Clinical Summary ---
[facility] Organization [facility] Address [address] [place] [address] Care Team Providers Care Tooling Specialist Name Role Phone Kinjal Domingo NP Primary Care Provider Allergies Active Allergy Reactions Criticality Noted Date Comments Adhesive Rash Medium 10/21/2013 Latex Rash Reaction: Rash, , Mvyatrw-Yfo-Mkd Reductase Inhibitors Muscle pain Medium 01/29/2023 Medications [...] 11/2023 Assessment & Plan (03/06/2024 3:11 PM STRETCHER LEVELER OPERATOR): -chronic, stable -Discussed/ordered labs -Patient is unable [...] hypoglycemia Assessment & Plan (06/05/2023 4:09 PM STRETCHER LEVELER OPERATOR): Continuous glucose monitor (cgm) applied from 05/23/2023 [...] needed Assessment & Plan (05/05/2020 4:57 PM STRETCHER LEVELER OPERATOR): Meclizine p.r.n.. Call back for vestibular therapy if needed. Assessment & Plan (04/20/2020 8:18 PM STRETCHER LEVELER OPERATOR): Meclizine p.r.n. call back for vestibular therapy [...] today Assessment & Plan (05/26/2021 5:41 PM STRETCHER LEVELER OPERATOR): Continue calcium vitamin-D weight-bearing exercise repeat bone density scan per molder recommendations. Assessment & Plan (04/20/2020 8:17 PM STRETCHER LEVELER OPERATOR): Calcium, vitamin-D, weight-bearing exercise repeat bone density scan per molder recommendations. Assessment & Plan (10/03/2019 1:28 PM CDT): Calcium, vitamin-D, weight-bearing exercise repeat bone density imaging with her molder. Assessment & Plan (01/27/2019 2:21 PM CDT): Calcium, vitamin-D, weight-bearing exercise. She is to discussed repeat imaging with her molder. Assessment & Plan (02/01/2017 5:09 PM CDT): [...] venlafaxine. Assessment & Plan (04/20/2020 8:18 PM STRETCHER LEVELER OPERATOR): Reduce venlafaxine to 37.5 mg daily. If [...] recommended. DDD (degenerative disc disease), lumbar 02/02/20 Assessment & Plan (08/11/2020 2:45 PM CDT): Referral to pain management for further evaluation. Breast cancer 10/21/2013 Overview (02/16/2020): Completed 5 years of tamoxifen; followed by Dr Arora Assessment & Plan (02/28/2024 11:35 AM CDT): -Patient will be starting radiation therapy soon -continue follow up with breast surgeon and molder as directed Assessment & Plan (08/26/2023 3:30 PM CDT): -continue follow up with breast surgeon and molder as directed -screening mammogram ordered today Assessment & Plan (01/27/2019 2:22 PM CDT): Follow-up with her breast surgeon and molder as they direct. Assessment & Plan (12/15/2017 2:48 PM CDT): Follow-up with her breast surgeon as a direct. The also manage her bone density scans. Assessment & Plan (02/01/2017 5:09 PM CDT): Follow-up with her specialist over in [place] who also manages her bone density scans [...] year. Assessment & Plan (04/20/2020 8:16 PM STRETCHER LEVELER OPERATOR): Continue current supplementation and check level in [...] diet Assessment & Plan (06/05/2023 4:05 PM STRETCHER LEVELER OPERATOR): This is a chronic condition which is [...] prescribed. Assessment & Plan (06/28/2022 1:15 PM STRETCHER LEVELER OPERATOR): This is a chronic condition which is at goal of <140/90 Personally reviewed labs. Continue lisinopril. Avoid caffeine, caffeine will raise blood pressure and excessive alcohol consumption. Monitor your weight and B/P. Encouraged to take medications as prescribed. Assessment & Plan (05/16/2022 12:47 PM STRETCHER LEVELER OPERATOR): Recommend DASH diet, heart-healthy lifestyle, exercise. Discussed [...] prescribed. Assessment & Plan (05/26/2021 5:40 PM STRETCHER LEVELER OPERATOR): Well controlled on the current regimen. Avoidance of salt, proper body weight, and routine exercise recommended. Assessment & Plan (08/11/2020 2:44 PM CDT): Well controlled on the current regimen. Avoidance of salt, proper body weight, and routine exercise recommended. Assessment & Plan (05/05/2020 4:56 PM STRETCHER LEVELER OPERATOR): Well controlled on the current regimen. Avoidance of salt, proper body weight, and routine exercise recommended. Assessment & Plan (04/20/2020 8:19 PM STRETCHER LEVELER OPERATOR): Blood pressure stable. Patient noncompliant with medications [...] bone loss and vit B12 deficiency with senior care use of PPI with pt, would like to remain on medication at this time Assessment & Plan (04/20/2020 8:18 PM STRETCHER LEVELER OPERATOR): Continue current PPI and the patient is [...] complication, with long-term current use of insulin ([facility]) 09/12/2013 Overview (08/01/2016): [facility] Assessment & Plan (02/28/2024 11:34 AM CDT): [...] eye exam. last dilated eye exam was [facility] Monofilament foot exam completed. Protective senses intact [...] exam Assessment & Plan (06/05/2023 4:08 PM STRETCHER LEVELER OPERATOR): This is a chronic condition which is [...] pravastatin Assessment & Plan (06/28/2022 1:29 PM STRETCHER LEVELER OPERATOR): This is a chronic condition which is [...] No history of macrovascular disease - [place]. Continuous glucose monitor (cgm) applied from 06/15/2022 [...] No history of macrovascular disease - [place]. Continuous glucose monitor (cgm) applied from 02/14/2022 [...] No history of macrovascular disease - [place]. Assessment & Plan (08/17/2021 3:43 PM CDT): [...] No history of macrovascular disease - [place], [place]. Assessment & Plan (07/05/2021 2:04 PM STRETCHER LEVELER OPERATOR): This is a chronic condition which is [...] No history of macrovascular disease - [place], [place]. Assessment & Plan (06/07/2021 4:41 PM STRETCHER LEVELER OPERATOR): This is a chronic condition which is [...] No history of macrovascular disease - [place]. Assessment & Plan (05/26/2021 5:41 PM STRETCHER LEVELER OPERATOR): A1c above goal. Reduce her Tresiba to 34 units due to of morning hypoglycemia. She needs any more regular with her mealtime insulin. She does not want to drive to [place] for her Endocrinology appointments anymore. Referral to Kemi Golden. Assessment & Plan (08/11/2020 2:45 PM CDT): A1c much improved. Continue her Tresiba I have urged her to start her NovoLog pre meal insulin as well. Follow-up with her scheduling specialist as they direct. Continue work on diet exercise weight loss. Assessment & Plan (04/20/2020 8:17 PM STRETCHER LEVELER OPERATOR): A1c poorly controlled. Patient noncompliant with diet [...] Get a nutrition scale, Perfect Portions from [employer] to help with carb counting. - Make [...] her poor glycemic control. Follow-up with her scheduling specialist as they direct. Assessment & Plan (01/27/2019 2:21 PM CDT): A1c remains grossly uncontrolled. She must check blood sugars 3 times daily record and turn into her scheduling specialist. She is be more compliant with diet [...] exercise, weight loss. Follow up with her scheduling specialist as he directs. Patient is aware that [...] exercise and weight loss. Follow up her scheduling specialist as he directs. Check blood sugars 3 [...] relief. Assessment & Plan (05/26/2021 5:41 PM STRETCHER LEVELER OPERATOR): Patient is compliant with the CPAP machine and gets symptomatic relief. Assessment & Plan (04/20/2020 8:17 PM STRETCHER LEVELER OPERATOR): Patient is compliant with the CPAP machine [...] 08/26/2023 Assessment & Plan (05/05/2020 4:55 PM STRETCHER LEVELER OPERATOR): Rest ice gentle stretching exercises, meloxicam, physical [...] needed Assessment & Plan (05/26/2021 5:42 PM STRETCHER LEVELER OPERATOR): We discussed a comprehensive list of medical [...] needed. Assessment & Plan (04/20/2020 8:19 PM STRETCHER LEVELER OPERATOR): We discussed a comprehensive list of medical [...] normal. Assessment & Plan (05/26/2021 5:41 PM STRETCHER LEVELER OPERATOR): Timed get up and go test normal. Assessment & Plan (04/20/2020 8:19 PM STRETCHER LEVELER OPERATOR): Timed get up and go test normal. [...] visit. Assessment & Plan (05/26/2021 5:41 PM STRETCHER LEVELER OPERATOR): TSH and free T4 normal and she is without symptoms. Check again 1 year. Assessment & Plan (08/11/2020 2:45 PM CDT): She remains asymptomatic will check TSH and free T4 before next visit. Assessment & Plan (04/20/2020 8:17 PM STRETCHER LEVELER OPERATOR): Asymptomatic and will check thyroid levels once [...] booster every 10 years. Yearly mammogram. Father molder for Pap smears as they direct. Colonoscopy [...] spasms. Assessment & Plan (06/05/2023 4:04 PM STRETCHER LEVELER OPERATOR): >>ASSESSMENT AND PLAN FOR HYPERLIPIDEMIA WRITTEN ON 02/01/2017 5:08 PM BY MARY PADRON MD LDL much better controlled on atorvastatin. Assessment & Plan (06/05/2023 4:04 PM STRETCHER LEVELER OPERATOR): >>ASSESSMENT AND PLAN FOR HYPERLIPIDEMIA WRITTEN ON 12/15/2017 2:48 PM BY MARY PADRON MD Continue atorvastatin. Assessment & Plan (06/05/2023 4:04 PM STRETCHER LEVELER OPERATOR): >>ASSESSMENT AND PLAN FOR HYPERLIPIDEMIA WRITTEN ON 07/21/2018 5:00 PM BY MARY PADRON MD Hold her atorvastatin to see if this helps her lower extremity muscle spasms. Continue Zetia for now Assessment & Plan (06/05/2023 4:04 PM STRETCHER LEVELER OPERATOR): >>ASSESSMENT AND PLAN FOR HYPERLIPIDEMIA WRITTEN ON 01/27/2019 2:22 PM BY MARY PADRON MD Well controlled on current therapy and will check a lipid panel and LFTs in 6 months. Assessment & Plan (06/05/2023 4:04 PM STRETCHER LEVELER OPERATOR): >>ASSESSMENT AND PLAN FOR HYPERLIPIDEMIA WRITTEN ON 10/03/2019 1:29 PM BY MARY PADRON MD She needs to make sure that she is taking her Zetia and atorvastatin. Assessment & Plan (06/05/2023 4:04 PM STRETCHER LEVELER OPERATOR): >>ASSESSMENT AND PLAN FOR HYPERLIPIDEMIA WRITTEN ON 10/26/2019 1:02 PM BY MIRZA MONTALVO MD Recheck lipids after A1c and glucoses correct. The combination of lower glucoses and GLP1 may have a positive effect on TG in particular, also TC. Assessment & Plan (06/05/2023 4:04 PM STRETCHER LEVELER OPERATOR): >>ASSESSMENT AND PLAN FOR HYPERLIPIDEMIA WRITTEN ON 05/05/2020 3:24 PM BY MARY PADRON MD Non compliant with her atorvastatin and would recommend restarting and the rationale for this discussed at length. Long-term risks posed her health with failure to do so discussed at length. Assessment & Plan (06/05/2023 4:04 PM STRETCHER LEVELER OPERATOR): >>ASSESSMENT AND PLAN FOR HYPERLIPIDEMIA WRITTEN ON 02/22/2020 12:24 PM BY MIRZA MONTALVO MD LDL is way too high for someone with T2DM. Please do the following: - Take atorvastatin every day - Take ezetimibe every day - Discuss with Dr. Padron next steps and recheck. Assessment & Plan (06/05/2023 4:04 PM STRETCHER LEVELER OPERATOR): >>ASSESSMENT AND PLAN FOR HYPERLIPIDEMIA WRITTEN ON 05/05/2020 4:56 PM BY MARY PADRON MD She has not filled Crestor and atorvastatin due to lower extremity complaints. Try Zetia alone. Try pravastatin next visit if needed. Assessment & Plan (06/05/2023 4:04 PM STRETCHER LEVELER OPERATOR): >>ASSESSMENT AND PLAN FOR HYPERLIPIDEMIA WRITTEN ON 08/11/2020 2:44 PM BY MARY PADRON MD Let us try pravastatin Saturday and Saturday and call back if she develops any side effects and will discontinue it at that point. Continue Zetia. Assessment & Plan (06/05/2023 4:04 PM STRETCHER LEVELER OPERATOR): >>ASSESSMENT AND PLAN FOR HYPERLIPIDEMIA WRITTEN ON 05/26/2021 5:41 PM BY MARY PADRON MD Stable on Zetia and pravastatin Assessment & Plan (06/05/2023 4:04 PM STRETCHER LEVELER OPERATOR): >>ASSESSMENT AND PLAN FOR HYPERLIPIDEMIA WRITTEN ON 06/07/2021 4:35 PM BY KEMI GOLDEN, KEN This is a chronic condition which is not at goal. Goal is less than 70. Personally reviewed lipid panel. LDL- 141. On zetia. Encouraged to eat healthy, include fresh fruits and vegetables daily and avoid eating fried foods more than once per week. Encouraged to take medications as prescribed. Assessment & Plan (06/05/2023 4:04 PM STRETCHER LEVELER OPERATOR): >>ASSESSMENT AND PLAN FOR HYPERLIPIDEMIA WRITTEN ON 07/05/2021 1:14 PM BY KEMI GOLDEN, KEN This is a chronic condition which is [...] prescribed. Assessment & Plan (06/05/2023 4:04 PM STRETCHER LEVELER OPERATOR): >>ASSESSMENT AND PLAN FOR HYPERLIPIDEMIA WRITTEN ON 11/20/2021 4:02 PM BY KEMI GOLDEN, KEN This is a chronic condition which is [...] prescribed. Assessment & Plan (06/05/2023 4:04 PM STRETCHER LEVELER OPERATOR): >>ASSESSMENT AND PLAN FOR HYPERLIPIDEMIA WRITTEN ON 12/17/2022 9:35 AM BY MARY PADRON MD Failed 3 different statins. Recommend diet exercise and retry Zetia and check lipids before next visit. Assessment & Plan (06/05/2023 4:04 PM STRETCHER LEVELER OPERATOR): This is a chronic condition which is not at goal of LDL less than 70 Continue Zetia. Does not tolerate statins Encouraged to eat healthy, include fresh fruits and vegetables daily and avoid eating fried foods more than once per week. Encouraged to take medications as prescribed. Assessment & Plan (06/05/2023 4:04 PM STRETCHER LEVELER OPERATOR): >>ASSESSMENT AND PLAN FOR TYPE 2 DIABETES MELLITUS WITH HYPERLIPIDEMIA (HCC) WRITTEN ON 02/19/2023 11:16 AM BY MARY PADRON MD A1c just above goal but much improved from her baseline over the past few years. Follow-up with her scheduling specialist as they direct. >>ASSESSMENT AND PLAN FOR [...] prescribed. Assessment & Plan (06/28/2022 1:14 PM STRETCHER LEVELER OPERATOR): This is a chronic condition which is [...] prescribed. Assessment & Plan (06/05/2023 4:04 PM STRETCHER LEVELER OPERATOR): >>ASSESSMENT AND PLAN FOR TYPE 2 DIABETES [...] Obesity Hypersomnia 06/26/2013 02/01/2017 Overview (08/01/2016): Hypersomnia Encounters Date Type Department Care Team Description 05/06/2024 Telephone [facility] Diabetes Endocrine Care at [address] [phone] Kemi Golden NP 04/02/2024 Telephone [facility] Diabetes Endocrine Care at [address] [place] [phone] Kemi Golden NP from Last 3 Months Immunizations Name Administration Dates Next Due COVID-19 mRNA (PFIZER) 0.3 m L (30 mcg) vaccine (12 [...] 01/27/2019 Pneumococcal Polysaccharide PPV23 03/31/2015 Tdap 05/30/2009 Surgical History Surgery Date Site/Laterality Comments SECTION section OTHER SURGICAL HISTORY 04/29/1986 - 04/28/1987 section 1986 OTHER SURGICAL HISTORY ER Leg Pain : [place] [employer]ian[employer] OTHER SURGICAL HISTORY Lumbar DDD and herniation and spinal stenosis: MRI 05/09, 09/07 OTHER SURGICAL HISTORY 03- pain management: Dr Al OTHER SURGICAL HISTORY repair of tear in vagina wall OTHER SURGICAL HISTORY 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/2013: [facility]: Surgery and radiation scheduled, BREAST LUMPECTOMY 01/07/2014 Right Lumpectomy SECTION BREAST SURGERY 10/27/2018 - 11/26/2018 Left BREAST BIOPSY 10/09/2013 Right malignant BREAST BIOPSY 12/05/2023 Right Medical History Medical History Date Comments Depression Depression Hx Other Medical Urinary inconti nence Type 2 diabetes mellitus (HCC) D iabetes type 2 History of multiple allergies Al lergies Hyperlipidemia Hyperlipidemia Hx Other Medical 01-well head pumper Hx 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 Hx Other Medical 09/13/2011 ER Leg Pain Hx Other Medical Lumbar DDD and herniation and spinal stenosis Hx Other Medical 03- pain manage ment Hx Other Medical 04 - Neurosurge on Dr Leon Hypertension Hypertension Diabetes mellitus (HCC) Diabetes Hypercholesterolemia High choles terol; Comments: GDS 10/12/2013 - Hx Other Medical mitral valve pr olapse; Comments: GDS 10/12/2013 - Anxiety disorder Anxiety Hx Other Medical 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/2013 Hx Other Medical lumpectomy righ t breast Malignant neoplasm of female breast (HCC) Cancer, breast Hx Other Medical left brease bio psy Diabetic eye exam (CMS/HCC) (HCC) 1955 History of radiation therapy 2013 [place] [place] Subclinical hypothyroidism 07/21/2018 Family History Medical History Relation Name Comments Thyroid cancer Brother 2 Thyroid cance r; Thyroid cancer Brother 3 Cancer, thyro id; Hyperlipidemia Father Hyperlipidemi a; Other Father Alive and well; Stroke Father Stroke; /Stroke ; Breast cancer Father's Sister 1 half-sister Cancer, b reast; Colon cancer Father's Sister 2 Cancer, co rodríguez; Atrial fibrillation Mother Atrial f ibrillation; Coronary artery disease Mother Kael nary artery disease; Diabetes Mother Diabetes mellit us; Heart attack Mother Myocardial infa rction; /Myocardial infarction; Hypertension Mother Hypertension; Breast cancer Mother's Sister great aunt Cancer, georgette ast; GDS 10/12/2013 -great maternal aunt Colon cancer Other 1 Cancer -colon; Other Other 2 Family history of Cancer, thyroid; Breast cancer Other 3 maternal great aunt Family history of Cancer, breast; Other Sister 2 Alive and well; Relation Name Status Comments Brother 1 Alive Brother 2 Brother 3 Father Alive Father's Sister 1 half-sister Father's Sister 2 Mother Mother's Sister great aunt Other 1 Other 2 Other 3 maternal great aunt Sister 1 Alive Sister 2 Social History [...] than three times a week 05/13/2020 Attends Jainism Services Not on file 05/13 Active Member [...] on file Legal Sex Female 7:03 PM STRETCHER LEVELER OPERATOR Gender Identity Not on file Sexual Orientation Not on file Obstetrics History Para Term AB IAB SAB Ectopic Multiple Livin g Live Births 2 2 2 Date Outcome GA Total Labor Labor/2nd/3rd Weight Sex Type Anes PTL Rosa A1 A5 Name Clin Term Term Last Filed Vital Signs Vital Sign Reading [...] st Contact Info) Description 06/29/2024 11:30 AM STRETCHER LEVELER OPERATOR Hospital Encounter [address] [phone] Herrera Caceres DO [address] [facility] [address] [place] [address] [place] [phone] 06/29/2024 11:30 AM STRETCHER LEVELER OPERATOR - 06/29/2024 12:00 PM STRETCHER LEVELER OPERATOR Surgery [address] [address] Herrera Caceres DO [address] [facility] [address] [place] [address] [place] [id number] COLONOSCOPY Scheduled Procedures Name Priority Associated Diagnoses Date/Ti me COLONOSCOPY Hx of colonic polyps 06/29/2024 11:30 AM STRETCHER LEVELER OPERATOR Health Maintenance Due Date Last Done Comments Hepatitis B Screening 1973 Zoster Vaccine (1 of 2) 2003 DTaP/Tdap/Td Vaccine (2 - Td or Tdap) 05/30/2019 05/30/2009 Pneumococcal vaccine 65+ (3 of 3 - PPSV23 or PCV20) 03/31/2020 01/27/2019, 03/31/2015 Covid-19 Vaccine (7 - 2023-2 5 season) 2023 01/14/2023, 05/25/2022, 05/25/2022, Additional history exists Influenza Vaccine (#1) 2023 , 05/25/2022, 05/26/2021, Additional history exists Colon Cancer Screening-Colonoscopy 01/25/2024 01/24/2017, 10/06/2010, 10/06/2010 Hemoglobin A1C 07/28/2024 01/28/2024, 02/0 10/2023, 02/12/2023, Additional history exists Breast Cancer Screening-Mammogram 10/16/2024 10/17/2023, 12/25/2021, 12/25/2021, Additional history exists Albumin Creatinine Ratio, Urine 01/27/2025 01/28/2024, 02/12/2023, 01/22/2022, Additional history exists Foot Exam 01/27/2025 01/28/2024, 020 10/2023, 01/29/2023, Additional history exists Lipid Panel 01/27/2025 01/28/2024, 01/27, 01/22/2022, Additional history exists eGFR 01/27/2025 01/28/2024, 01/27, 01/22/2022, Additional history exists Depression Screening 02/25/2025 02/26/2024, 08/26/2023, 02/19/2023, Additional history exists Fall Risk Assessment 02/25/2025 02/26/2024, 08/26/2023, 02/19/2023, Additional history exists Well Visit 65+ 02/25/2025 02/26/2024, 01/28, 05/26/2021, Additional history exists Osteoporosis Screening-Bone Density Scan 10/16/2025 10/17/2023, 01/21/2014, 01/21/2014, Additional history exists Dilated Eye Exam 12/11/2025 12/12/2023, , 10/28/2023, Additional history exists Hepatitis C Screening Completed 07/16/2016, 017 Colon Cancer Screening-CT Colonography Discontinued 01/24/2017, 10/06/2010, 10/06/2010 Colon Cancer Screening-DNA Stool Discontinued 01/24/2017, 10/06/2010, 10/06/2010 Colon Cancer Screening-FIT Discontinued 01/24, 10/06/2010, 10/06/2010 Colon Cancer Screening-Sigmoidoscopy Discontinued 01/24/2017, 10/06/2010, 10/06/2010 Medical Devices Implanted Type Area Animal Breeder Device Identifier Shelf Expiration Date Model / Serial / Lot Bard Peripheral Vascular Ultraclip Bard 17ga 10cm 2 Trigger Permanent Ultrasound [id number] - [id number] - [id number] Implanted:Qty: 1 on 12/05/2023 by Davian Banks MD at [facility] Breast Right: Breast [employer] Peripheral Vascular 09/23/2025 [id number] / [id number] / [id number] Description:Implanted Right Breast 8:00 area 5 cmfn [...] of Race in Diagnosing Kidney Disease, JASN 2020). The CKD-EPI equation should not be used for patients with unstable renal function and has not been validated in children and those over 70. Current interpretive data was last reviewed 2021. Blood 01/28/2024 2:44 PM CDT 01/28/2024 6:23 PM CDT us Kemi Golden NP LAB BLOOD ORDERABLES Final Resu lt [facility]ANTA JENKINS [id number] [address] Department [place] [address] * (ABNORMAL) Albumin Creatinine Ratio, Urine (01/28/2024 2:44 PM CDT) Pathologist [facility] Albumin Ur 27.5 mg/L Comment: Interpretive Data No reference range established. Current interpretive data was last revised 2018. Creatinine Ur 69.2 mg/dL SAMANTA JENKINS Comment: Interpretive Data No reference range established. Current interpretive data was last revised 2018. Albumin Creatinine Ratio, Ur 40(H) 1 - 29 mg/g [facility] Urine 01/28/2024 2:44 PM CDT 01/28/2024 6:22 PM CDT us Kemi oGlden NP LAB URINE ORDERABLES Final Resu lt [facility] [id number] [address] Department [place] [address] * (ABNORMAL) Lipid panel (01/28/2024 2:44 PM [...] revised on 2017. Triglycerides 271(H) <=149 mg/dL [facility] Comment: Interpretive Data Ages < or = [...] 2017. LDL, calculated 155(H) <=129 mg/dL SAMANT[facility] JENKINS Comment: Interpretive Data Ages < or = [...] revised on 2023. Non-HDL Cholesterol 205 mg/dL [facility] JENKINS Comment: Interpretive Data Ages < or = [...] last revised on 2017. Chol/HDL ratio 6 SAMANTA JENKINS Blood 01/28/2024 2:44 PM CDT 01/28/2024 6:22 PM CDT Narrative SAMANTA JENKINS - 01/28/2024 6:45 PM CDT These lab test should be done fasting. This means do not eat or drink for at least 12 hours prior to getting your blood drawn. Has the patient been fasting for 8 hours or more?->Yes Kemi Golden NP LAB BLOOD ORDERABLES Final Resu lt [facility]A [id number] [address] Department [place] [address] * (ABNORMAL) POCT hemoglobin A1c (01/28/2024 2:15 PM CDT) Hemoglobin A1C, POC 8.3 4.0 - 5.6 % Blood 01/28/2024 2:15 PM CDT Kemi Golden NP POINT OF CARE TEST ORDERABLES F inal Result * (ABNORMAL) Diabetic Eye Exam (12/12/2023) Generic External Data Provider [facility] Final Result * (ABNORMAL) Screening [...] suspicious findings in either breast. Kinjal Domingo RUNNER MAN IMG MAMMO PROCEDURES Final R esult * [...] ??screening ?? Osteoporosis screening ??Post menopausal ? Animal Breeder/Model: [employer] SL (S/N [id number]) CLINICAL INFORMATION: Current height: ??59.5 ??inches ? [...] PM T: ??10/17/2023 10:35 PM Report ID: [id number] Reading Location: ??[id number] Procedure Note Trell Arias MD - 10/17/2023 EXAM DESCRIPTION: DEXA AXIAL SKELETON BONE DENSITY 1 OR MORE SITES REASON FOR STUDY: 68 y/o year old F with given history of: screening Osteoporosis screening Post menopausal Animal Breeder/Model: [employer] SL (S/N [id number]) CLINICAL INFORMATION: Current height: 59.5 inches Maximum [...] Trell Arias M.D. MF: REGINA Report ID: [id number] Reading Location: [place] [address] Kinjal Domingo RUNNER MAN IMG DXA PROCEDURES Final Res ult * DIABETES FOOT EXAM (03/08/2017) [facility] Diabetic Foot Exam Unknown [facility] Provider HEALTH MAINTENANCE Final Result * Colonoscopy (01/24/2017) Anatomical Region Laterality Modality Other Result [facility] Provider ENDOSCOPY PROCEDURES Shirley l Result * (ABNORMAL) Serum Hepatitis C ab (07/16/2016 10:29 AM CDT) [facility] HCV ab REACTIVE( A) NON-REACT INOCENCIO CDR [...] infection. Serum 07/16/2016 10:2 9 AM CDT [facility] Provider LAB BLOOD ORDERABLES Shirley l Result CDR HISTORICAL RESULTS from Last 3 Months or Most Recently Relevant to Health Maintenance Insurance MEDICARE [facility] OF [facility] Care Teams Tooling Specialist Relationship Specialty Start Date End Date Kinjal Domingo NP [address] [place] [address] PCP - General Family Medicine 08/26/23
--- OUTSIDE RECORDS SUMMARY | 2024-05-29 15:58 | XMS_ITS | Patient Health Summary ---
Author Organization [facility] [place] Address [address] [place] [address] Care Team Providers Care Second Time Worker Name Role Phone Peter Padron MD Primary Care Provider [phone] Note from [facility],non-owned Affiliates and Associated Physician Practices is amultiple site organization consisting of ambulatory clinics and hospital sitesin [place], [place], [place] and [place]. This disclosure is being madepursuant to the Care Everywhere program and may not contain all information available regarding this patient. Last updated 18.[facility] [place] Allergies No known active allergies Medications * Be aware that medications may not be up to date on this document. Alwaysverify current medications with the patient. * insulin glargine (LANTUS) injection Inject 45 Units subcutaneously at bedtime. * rosuvastatin (CRESTOR) 40 MG tablet Take 40 mg by mouth once daily. * omeprazole (PRILOSEC OTC) 20 MG tablet Take 20 mg by mouth daily before breakfast. * solifenacin (VESICARE) 5 MG tablet Take 5 mg by mouth once daily. * escitalopram (LEXAPRO) 20 MG tablet Take 20 mg by mouth once daily. * LISINOPRIL PO Take 10 mg by mouth. * cefUROXime (CEFTIN) 500 MG tablet Take 500 mg by mouth every 12 hours. Social History Tobacco Use Types Packs/Day Years [...] 74.8 kg (165 lb) 05/12/2012 12:29 PM CRAB MEAT PROCESSOR Height 154.9 cm (5' 1 ) 05/12/2012 12:29 PM CRAB MEAT PROCESSOR Body Mass Index 31.18 05/12/2012 12:29 PM CRAB MEAT PROCESSOR Procedures * DERMATOPATHOLOGY(Performed 10/06/2013) * IMAGING/RADIOLOGY/XRAY RESULTS ORDER(Performed 09/19/2011) * IMAGING/RADIOLOGY/XRAY RESULTS ORDER(Performed 09/19/2011) Results * PATHOLOGY TISSUE FOR DERMATOLOGY (10/06/2013 12:00 AM CDT) Result CASE: [id number] PATIENT: ANYA MONTGOMERY PATHOLOGIC DIAGNOSIS: A. ??Left lat forehead: BASAL CELL CARCINOMA, NODULAR TYPE PRESENT AT MARGIN B. 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 Check margins. B: R/O Dys nevus. Check margins. GROSS DESCRIPTION: A: Received is one formalin filled container labeled with the patient's name and designated left lat forehead. The specimen consists of a shave biopsy measuring 7x6x2 mm. The margin is inked green. Jar0. B: Received is one formalin filled container labeled with the patient's name and designated left upper medial biceps. The specimen consists of a shave biopsy measuring 6x5x1 mm. The margin is inked green. Jar 0. MICROSCOPIC DESCRIPTION: SPECIMEN ??A: Within the dermis there are aggregates of basaloid cells with a high nuclear to cytoplasmic ratio and peripheral palisading. Lesion is present at the margin of the specimen. SPECIMEN ??B: There are nests of melanocytes within the dermis. Some of these melanocytes are concentrated around blood vessels and adnexal structures. Lesion is present at the margin of the specimen. Electronically signed out by Petra Smith M.D., PhD. 10/08/2013 3:15:07PM [facility] D[facility] Comment: Performed at: Dermatopathology Laboratory [facility] Department of Dermatology [address] [place] [address], 5th [place] [address] Phone number: [phone] FAX: [phone] 10/06/2013 10/07/2013 Nacho Linn MD LAB - PATHOLOGY/CYTO LOGY ORDERABLES [facility] DERMATOLOGY LAB [address]. 5th [place] [address], [facility] [phone] * IMAGING/RADIOLOGY/XRAY RESULTS ORDER (09/19/2011) Only the most recent of2 resultswithin the time period is included. Anatomical Region Laterality Modality Other Provider Unknown IMAGING Care Teams Second Time Worker Relationship Specialty Start Date End Date Peter Padron MD PCP - General Internal Medicine 01/25/12
--- OUTSIDE RECORDS SUMMARY | 2024-05-29 15:59 | XMS_ITS | Continuity of Care Document ---
Author Organization [facility] Address [address] [place] [address] Phone Care Team Providers Care Bird Cage Assembler Name Role Phone David OD OD, [place] [...] STAGE TORIC IOL COSMETIC NMN OFFICE/OUTPATIENT VISIT, [facility] 2 EYES Advance Directives Directive Yes / No Effective Date File Name No Information Encounters Encounter Description Practice Location Reason(s) For Visit Diagnoses Date Provider Providers Copied on Encounter [facility], [address] [place] [address], [id number], tel:[phone] OPH CONSULT DIMPLE [place]GORE 1 week PO OD (chief complaint) Pseudoaphakia 1 Derheimer OD [place]. [address], [place], [place], [id number], [place]. tel:[phone] Referring Provider: Peter Padron MD, [address] [place] [address] [address], [place], [address]. tel:[phone] [facility], [address] [place] [address], [id number], tel:[phone] OPH CONSULT DIMPLE KILGORE Post-Op (chief complaint) Presence of intraocular lens 1 [place] Cardoso. [address], [place], [place], [id number], [place]. tel:[phone] Referring Provider: Peter Padron MD, [address], [place], [address]. tel:[phone] [facility], [address] [place] [address], [id number], [place] tel:[phone] [facility] [place] No Information 1 [place] Cardoso. [address], [address], [place], [place], [id number], [place]. tel:[phone] Referring Provider: Walker Ambrosio, [address], [place], [place], [id number]. tel:[phone] [facility], [address] [place] [address], [id number], [place] tel:[phone] OPH CONSULT DIMPLE KILGORE post op (chief complaint) Pseudoaphakia 1 Derheimer OD [place]. [address], [place], [place], [id number], [place]. tel:[phone] Referring Provider: Peter Padron MD, [address], [place], [address]. tel:[phone] [facility], [address] [place] [address], [id number], [place] tel:[phone] OPH CONSULT DIMPLE KILGORE Post-Op (chief complaint) Age-related nuclear cataract, bilateral 1 [place] Cardoso. [address], [place], [id number], [place]. tel:[phone] Referring Provider: Peter Padron MD, [address], [place], [address]. tel:[phone] [facility], [address] [place] [address], [id number], [place] tel:[phone] [facility] No Information 1 [place] Cardoso. [address], [place], [place], [id number], [place]. tel:[phone] Referring Provider: Walker Ambrosio, [address], [place], [place], [id number]. tel:[phone] [facility], [address] [place] [address], [id number], tel:[phone] OPH CONSULT DIMPLE KILGORE No Information 1 [place] Cardoso. [address], [place], [place], [id number], [place]. tel:[phone] Referring Provider: Peter Padron MD, [address] [place] [facility] [address], [place], [address]. tel:[phone] OFFICE/OUTPA TIENT VISIT, [facility], [address] [place] [address], [place], [place], [id number], tel:[phone] OPH CONSULT DIMPLE KILGORE Cataract eval (chief complaint) Diabetic eye exam (chief complaint) Age-related nuclear cataract, bilateralDry eye syndrome of bilateral lacrimal glandsDermatoch alasis of left upper eyelidSquamous blepharitis left upper eyelidType 2 diabetes mellitus without complication, unspecified whether shelter insulin use 1 [place] Cardoso. [address], [place], [place], [id number], [place]. tel:[phone] Referring Provider: Peter Padron MD, [address] [place] [facility] [address], [place], [address]. tel:[phone] Family History Family Member Type Diagnosis Age At Onset No Information Payers Payer name Insurance type Covered democrat ID Authoriza tion(s) No Information Social History [...] [facility] Providers : Appeals Referee (related to Pseudoaphakia) ordered Referral Referred To: Blanca [facility] [address] [place], [phone] Ordered: Referrals: [facility] Providers : Appeals Referee. Blanca [facility] ordered Referral Referred To: Blanca [facility] [address] [place], [phone] Ordered: Referrals: [facility] Providers : Appeals Referee. Blanca [facility]. Evaluate and treat ordered History [...] has a FBS. Slight pain. She continues Ihgn-Hbvq-Lepe TID OS. OD scheduled 07/13/2020. TORIC/ORA DISTANCE. [...] 2 diabetes mellitus without complication, unspecified whether shelter insulin use Impression/Plan Related to Age-r elated nuclear cataract, bilateral Impression/Plan Related to Dry e ye syndrome of bilateral lacrimal glands Impression/Plan Related to [place] tochalasis of left upper eyelid Impression/Plan Related to Squam ous blepharitis left upper eyelid Assessments Type Assessment Date assessment Pseudoaphakia
[2024-05-29 16:00] VITALS: BP 131/71; PULSE 98; RESP 18; TEMP 37.2; O2SAT 100
[2024-05-29 16:40] LABS: EDCOVIDSCREEN Negative (Negative); EDSTREPNEGPOS1 Negative (Negative)
--- NOTE | 2024-05-29 16:46 | ED_ITS ---
HPI - URI/Sore Throat General Chief Complaint: Upper Respiratory Infection Stated Complaint: cough/throat History of Present Illness HPI Narrative: patient is a 69-year-old female, type 2 diabetic/insulin-dependent, [facility] with a 4 day history of URI symptoms, initially with rhinorrhea nasal congestion and a scratchy itchy throat, followed by several episodes of diarrhea lasting 1 day before resolving, followed by 1 episode of vomiting yesterday and intermittent nausea. Today she feels her throat is very itchy and she is coughing incessantly. Her cough is dry and hacky and has kept her up at night. She denies known fevers or chills, her children/grand children all recently had gastroenteritis. This is her only known sick contact. She states her blood glucose this morning was 220 but she forgot her insulin dose yesterday she was feeling too poorly. She has also been taking honey and lemon juice to control her cough which he thinks may have also elevated her blood sugar some. She is typically well controlled long-acting insulin dose. She denies any additional associated symptoms or modifying factors. Related Data Home Medications ?Medication ?Instructions ?Recorded ?Confirmed ?Last Taken ?Type omeprazole 20 mg tablet,delayed 20 mg PO DAILY 06/02/19 03/30/24 Unknown History release insulin degludec 100 See Rx Instructions .Route .COMPLEX 06/30/22 03/30/24 Unknown History unit-liraglutide 3.6 mg/mL(3 mL) subcutaneous pen (Xultophy 100/3.6) ezetimibe 10 mg tablet 10 mg PO DAILY 11/04/23 03/30/24 Unknown History lisinopril 5 mg tablet 5 mg PO DAILY 11/04/23 03/30/24 Unknown History venlafaxine 37.5 mg 37.5 mg PO DAILY 11/04/23 03/30/24 Unknown History capsule,extended release 24 hr meclizine 12.5 mg tablet 12.5 mg PO TID PRN Vertigo 03/13/24 03/30/24 Unknown History meloxicam 7.5 mg tablet 7.5 mg PO DAILY 03/13/24 03/30/24 Unknown History Allergies Allergy/AdvReac Type Severity Reaction Status Date / Time latex Allergy Unknown Unknown Verified 05/29/24 16:23 pravastatin AdvReac Intermediate leg cramps Verified 05/29/24 16:23 Review of Systems Constitutional: Constitutional: Reports as per HPI ENT: Reports as per HPI Respiratory: Respiratory: Reports as per HPI [facility] Past Medical History Medical History HX: breast cancer 2014 Anxiety Diabetes mellitus, type II Rectal polyp HTN (hypertension) HLD (hyperlipidemia) Surgical History Surgical History H/O lumpectomy H/O section Social History Social History Smoking status: Never smoker Second hand tobacco smoke exposure: Yes (As a child) Spiritual care concerns: No Exam Const: General: healthy appearing Nutritional Appearance: well nourished and obese Orientation/consciousness: patient oriented x3 Limitations: no limitations HENMT: Head: normal to inspection Ears: external ears normal and TM's no rmal bilaterally Face/Nose/Sinus: Normal external nose present and Normal nares present Face and sinus: normal facial exam Mouth: Yes Normal oral and palatal mucosa present and Yes lip normal Teeth and gingiva: dentition normal Throat: uvula midline Other: Pharyngeal mucosa is mildly injected, no erythema or exudate noted, uvula is midline, no pharyngeal swelling appreciated Eyes: Conjunctivae: conjunctivae normal Pupils: Equal, round and reactive pupils present EOM: EOMs intact bilaterally Neck: Neck: normal visual inspection, no lymphadenopathy and no meningeal signs Resp: Effort & Inspection: normal respiratory effort Auscultation: clear to auscultation bilaterally Other: lungs are clear throughout, no forced wheezing noted when patient is actively coughing. Cough is dry and barky /harsh when present Cardio: Rate: regular rate Rhythm: regular rhythm Skin: General skin exam: normal color Rashes: no rashes Wounds: no wounds Neuro: General: patient oriented x3, moves all extremities, no meningeal signs, no focal motor deficits and CN's II-XI intact bilaterally Cranial nerves: Yes Nystagmus not present Speech: normal speech Gait exam (Neuro): Normal gait present Course Course Level of Care: [facility] Care Visit (20169) Vital Signs Vital signs: Vital Signs Temperature 37.2 C 05/29/24 16:00 Pulse Rate 98 05/29/24 16:00 Respiratory Rate 18 05/29/24 16:00 Blood Pressure 131/71 05/29/24 16:00 Pulse Oximetry 100 05/29/24 16:00 Oxygen Delivery Room Air 05/29/24 16:00 Temperature 37.2 C 05/29/24 16:00 Pulse Rate 98 05/29/24 16:00 Respiratory Rate 18 05/29/24 16:00 Blood Pressure 131/71 05/29/24 16:00 Pulse Oximetry 100 05/29/24 16:00 Oxygen Delivery Room Air 05/29/24 16:00 MDM - URI/Sore Throat MDM Narrative Medical decision making narrative: COVID and flu were negative. Suspect patient has a viral gastroenteritis/ URI. Will treat with promethazine tablets in lieu of promethazine DM to reduce risk of elevated blood glucose. She is encouraged to monitor blood sugar at home closely and to continue her home treatment. Follow up closely with her PCP in 3-5 days if symptoms not resolving. ER if condition worsens in any way. Patient is agreeable plan Differential Diagnosis Differential diagnosis: Likely upper respiratory infection, croup, otitis media, viral infection, bronchitis, influenza and pharyngitis Lab Data Labs: Lab Results 05/29/24 Range/Units 16:37 POC SARS CoV-2 Ag Negative (Negative) POC Grp A Strep Screen Negative (Negative) Discharge Plan Discharge Clinical Impression: Upper respiratory infection, viral, Gastroenteritis Patient Disposition: Home, Self-Care Condition: Stable Instructions: Antibiotic Form, Upper Respiratory Infection (ED), Gastroenteritis (ED) Additional Instructions: PUSH FLUIDS, REST, YOU MAY TAKE PROMETHAZINE TABLETS FOR NAUSEA OR COUGH SUPPRESSION PRESCRIBED. MONITOR BLOOD SUGAR CLOSELY, CONTINUE HOME MEDICATIONS DIRECTED. YOU MAY ADD TYLENOL DIRECTED [id number] FOR DISCOMFORT. SEE YOUR PRIMARY DOCTOR IN 3-5 DAYS IF SYMPTOMS ARE NOT RESOLVING. PROCEED TO THE ER IF YOU HAVE ANY CONCERNS YOUR CONDITION IS WORSENING WITH ANY FURTHER EMERGENCIES Patient Language: Yakut Prescriptions: New promethazine 25 mg tablet 25 mg PO TID PRN (Reason: nausea and vomiting) Qty: 15 0RF No Action omeprazole 20 mg Tablet,Delayed Release (Dr/Ec) 20 mg PO DAILY lisinopril 5 mg tablet 5 mg PO DAILY ezetimibe 10 mg tablet 10 mg PO DAILY venlafaxine 37.5 mg capsule,extended release 24hr 37.5 mg PO DAILY Xultophy 100/3.6 100 unit-3.6 mg /mL (3 mL) insulin pen See Rx Instructions .ROUTE .COMPLEX Rx Instructions: PRESCRIBED meloxicam 7.5 mg Tablet 7.5 mg PO DAILY meclizine 12.5 mg Tablet 12.5 mg PO TID PRN (Reason: Vertigo) Follow-up/Referrals: PHYSICIAN NOT ON STAFF,NONSTAFF [Primary Care Provider] - Time of Disposition: 16:54
[2024-05-29 16:48] LABS: EDINFLUASCREEN Negative (Negative); EDINFLUBSCREEN Negative (Negative)
== END 2024-05-29 17:05 | disposition home or self-care (01) ==
PROVIDERS: Emergency Provider Nurse Practitioner Family
DX: J06.9 Acute upper respiratory infection, unspecified (principal); K52.9 Noninfective gastroenteritis and colitis, unspecified; Z20.822 Contact with and (suspected) exposure to COVID-19; E11.9 Type 2 diabetes mellitus without complications; Z79.4 Long term (current) use of insulin; I10 Essential (primary) hypertension; E78.5 Hyperlipidemia, unspecified; F41.9 Anxiety disorder, unspecified; Z85.3 Personal history of malignant neoplasm of breast
CPT/HCPCS: 87426; 87804; 87880; 99203; G0463

== ENCOUNTER 2024-07-26 14:09 | Emergency (ER) | payer MEDICARE, OTHER, SELFPAY ==
--- OUTSIDE RECORDS SUMMARY | 2024-07-26 14:11 | XMS_ITS | Encounter Summary ---
Author Organization [facility] Address [address] [place] [address] Care Team Providers Care Crepe Maker Name Role Phone Peter Padron MD Primary Care Provider [phone] Peter Padron MD Primary Care Provider [phone] Peter Padron MD Primary Care Provider [phone] Nicki Monk [facility] Unavailable [phone] Kinjal Domingo NP Primary Care Provider [phone] Encounter Details Date Type Department Care Team (Late st Contact Info) Description 10/06/2010 Orders Only [facility] Health Information Management [address] [place] [address] Peter Padron MD [address] [address], [place] [address] Social History Tobacco Use Types Packs/Day Years Used Date Smoking Tobacco: Never Assessed Comments Unknown Sex and Gender Information Value Date Recorded Sex Assigned at Not on file Legal Sex Female 7:03 PM DIRECTOR OF NURSES REGISTRY Gender Identity Not on file Sexual Orientation Not on file documented as of this encounter Plan of Treatment Not on file documented as of this encounter Procedures Procedure Name Priority Date/Time Associated Diagnosis Comments COLONOSCOPY Routine 10/06/2010 documented in this encounter Results * Colonoscopy (10/06/2010) Anatomical Region Laterality Modality Other Historical Provider ENDOSCOPY PROCEDURES Shirley l Result documented in this encounter Visit Diagnoses Not on filedocumented in this encounter Additional Health Concerns Infection Onset Date Last Indicated Resolved Time COVID: Suspected 01/13/2021 01/13/2021 01/13/2021 3:19 PM CDT COVID: Suspected 04/24/2022 04/24/2022 04/24/2022 11:58 AM DIRECTOR OF NURSES REGISTRY COVID: Suspected 12/17/2022 12/17/2022 12/17/2022 5:26 PM CDT documented as of this encounter Care Teams Crepe Maker Relationship Specialty Start Date End Date Peter Padron MD PCP - General 07/27/16 08/25/23 Peter Padron MD PCP - General 10/31/12 07/26/16 Peter Padron MD PCP - General 09/23/09 10/30/12 Kinjal Domingo NP [address] [place] [address] PCP - General Family Medicine 08/26/23 Nicki Monk, READING COACH [address] [place] [address] Senior Facilities Manager 05/04/20 06/01/20 documented as of this encounter
--- OUTSIDE RECORDS SUMMARY | 2024-07-26 14:11 | XMS_ITS | Clinical Summary ---
Author Organization [facility] Address [address] [place] [address] Phone Care Team Providers Care Straightening Press Operator Name Role Phone Unavailable Primary Care Provider Unavailabl e Allergies Active Allergy Reactions Criticality Noted Date Comments Adhesive Rash Low 10/21/2013 Latex Rash Low 10/21/2013 Tyqfqyq-Ofy-Ini Reductase Inhibitors Muscle Pain Medium 01/29/2023 Medications [...] 6 Tablets 10 Tablet 03/02/2024 3:47 PM PIPE STEM SAWYER 03/02/2024 Active Active Problems Patient Care Coordination No te Formatting of this note migh t be different from the original. Primary Care: Kinjal Domingo N.P. Breast surgeon: Aleja Heller M.D. Medical oncologist: Ulises Zheng M.D. Radiation oncologist: Rhonda Figueroa M.D. Prep Cook: Kemi Briscoe M.D. Problem Noted Date Diagnosed Date Macromastia 11/10/2013 History of right breast cancer 11/06/2013 Overview (02/05/2014): Pathologic Stage IA (T1c, N0(i-)sn, Mx) Date of Diagnosis: 10/02/2013 Diagnosis: 1.2 cm G2 NS7 IDC, (-)mar(>2mm), (-)LVSI, 0/2 SLN Prognostic Factors: ER 100%, NV 70%, H2N(-), Ki67 38% Mammogram preop: (+)mass, [...] 25 mm IDC, 0/2 LN ER 100%, NV 70%, Her2 (1+) negative Surgeon: Pina Surgery: 03/02/2024: Right lump/SLN Medical Oncologist: Marce Chemotherapy: Radiation Oncologist: Radiation: Anti-estrogen therapy: Diabetes mellitus HTN (hypertension) Hyperlipidemia Encounters Date Type Department Care Team Description 07/01/2024 External Device Data STL ABSTRACTION Provider, Abstract 06/17/2024 External Device Data STL ABSTRACTION Provider, Abstract from Last 3 Months Family History Medical [...] Comments Blood Pressure 134/66 03/17/2024 1:03 PM PIPE STEM SAWYER man ual Pulse 72 03/17/2024 12:49 PM PIPE STEM SAWYER Temperature 36.2 C (97.2 F) 03/02/2024 2:27 PM PIPE STEM SAWYER Respiratory Rate 10 03/02/2024 3:30 PM PIPE STEM SAWYER Oxygen Saturation 96% 03/02/2024 3:30 PM PIPE STEM SAWYER Inhaled Oxygen Concentration - - Weight 63 kg (139 lb) 03/17/2024 12:49 PM PIPE STEM SAWYER Height 151.1 cm (4' 11.5 ) 03/17/2024 12:[address] Body Mass Index 27.6 03/17/2024 12:49 PM PIPE STEM SAWYER Plan of Treatment Upcoming Encounters Date Type Department Care Team (Late st Contact Info) Description 09/15/2024 10:45 AM CDT Appointment [facility] [address] [place] [address] [place] [address] [place] [address] 09/15/2024 11:45 AM CDT Office Visit [facility] [address] [place] [address] [place] [address] [place] [address] Health Maintenance Due Date Last Done Comments FIT-DNA Q 3 years 1998 FIT/FOBT Q 1 year 1998 Flex Sig/CT Colonography Q 5 years 1998 ZOSTER VACCINE (1 of 2) 2003 DIABETES MICROALBUMIN ANNUAL SCREEN 11/29/2016 11/30/2015 LDL CHOLESTEROL ANNUAL 07/16/2017 07/16/2016 DTAP/TDAP/TD VACCINES (2 - T d or Tdap) 05/30/2019 05/30/2009 INFLUENZA VACCINE (#1) 2023 3, 05/25/2022, 05/26/2021, Additional history exists COVID-19 Vaccine (5 - 2023-2 5 season) 2023 01/14/2023, 05/25/2022, 07/25/2020, Additional history exists PNEUMOCOCCAL VACCINE 50+ YEA RS (3 of 3 - PCV20 or PCV21) 01/28/2024 01/27/2019, 03/31/2015 DIABETES HBA1C Q 6 MONTHS 07/28/20242023, 06/05/2023, 02/12/2023, Additional history exists DIABETES ANNUAL RETINAL EXAM 11/24/2024, 10/28/2023, 10/11/2023, Additional history exists BREAST CANCER SCREENING 12/04/2024 12/05/19 24, 10/17/2023, 12/25/2021, Additional history exists DIABETES ANNUAL FOOT EXAM 01/27/2025 01/28/2024 COLORECTAL SCREENING 01/24/2027 01/24/2017, 01/25/20 17 Colorectal Cancer Screening 01/24/2027 RSV VACCINE (60+ or ) (1 - 1-dose 75+ series) 02/03/2028 OSTEOPOROSIS SCREENING Completed 10/17/2023, 2013 Medical Devices Implanted Type Area Earth Boring Machine Operator Device Identifier Shelf Expiration Date Model / Serial / Lot Biochemistry Technician Clip Surgiclip Ii Nabil 9.75in [id number] - [id number] Implanted:Qty : 1 on 03/02/2024 by [place]ja [place]eller [place] [facility] Right: Axilla [employer] - COVIDIEN 11/26/2028 [id number] / / [id number] Hemostatic Surgicel 2x14in 1950 - [id number] Implanted:Qty : 1 on 12/17/2018 by Lilian Bustamante MD at [facility] Hemostatic Left: Breast [employer] [id number] 04/28/20231950 / / [id number] Procedures Procedure Name Priority Date/Time Associated Diagnosis Comments MAMMO 3D FLORENTINO SCREEN BILAT W OR [...] Recently Relevant to Health Maintenance Results * MAMMO SCRN BILAT 3D FLORENTINO W OR WO CAD (12/25/2021 1:33 PM CDT) Anatomical Region Laterality Modality Breast Bilateral Mammography 12/25/2021 1:47 PM CDT Impressions 12/25/2021 4:57 PM CDT IMPRESSION: No suspicious findings to suggest malignancy in either breast. Annual mammography is recommended. OVERALL FINAL ASSESSMENT: BI-RADS CATEGORY 2: Benign findings. DICTATION LOCATION: [facility] 12/25/2021 4:57 PM CDT BILATERAL SCREENING DIGITAL [...] used in the interpretation of this examination. Procedure Note Chacho Frias MD - 12/25/2021 [...] BI-RADS CATEGORY 2: Benign findings. [facility] Dwaine Arora MD MAMMO ORDERABLES Final Result * (ABNORMAL) LIPID PANEL (07/16/2016) Blood us Abstract Provider CHEMISTRY ORDERABLES Edited Re sult - Final Performing Organization Address City/[facility]/ZIP Co de Phone Number [facility] * (ABNORMAL) MICROALBUMIN, RANDOM URINE (11/30/2015) Urine specimen (specimen) URINE SPECIMEN OBTAINED BY CLEAN CATCH PROCEDURE / Unknown us Abstract Provider URINE ORDERABLES Edited Result - Final Performing Organization Address [facility]/ZIP Co de Phone Number [facility]# [id number] [facility] [place] [address] * XR DEXA BONE DENSITY AXIAL 1 OR MORE SITES (01/21/2014 9:31 AM CDT) Anatomical Region Laterality Modality Computed Radiogr aphy 01/21/2014 9:30 AM CDT Narrative 01/21/2014 9:39 AM CDT Examination: Bone Density Study (DXA) Clinical History: [...] to significant osteoarthritis. Detailed report placed in Epic. Dictated by Dr. Herrera Crooks MD Dictated [...] to significant osteoarthritis. Detailed report placed in Epic. Dictated by Dr. Herrera Crooks MD Dictated from Location 1. [facility] Mike Arora MD DIAGNOSTIC IMAGING ORDERABLES Final Result from Last 3 Months or Most Recently Relevant to Health Maintenance Insurance MEDICARE PART A AND B [facility] [place] [address] RX [employer]ER[employer] Medicare Part D RX [employer] Medicare Part D Advance Directives For more information, please contact: [phone] * Full Code (Latest Code Status on File) Date Activated Date Inactivated Comments 12/17/2018 9:21 AM 12/17/2018 2:03 PM * Full Code Date Activated Date Inactivated Comments 01/07/2014 1:33 PM 01/07/2014 11:53 PM * Full Code Date Activated Date Inactivated Comments 01/07/2014 8:32 AM 01/07/2014 1:33 PM
--- OUTSIDE RECORDS SUMMARY | 2024-07-26 14:11 | XMS_ITS | Referral Summary ---
Author Organization [facility] Building B Address [address] [place] [address] Care Team Providers Care Cnc Operator Programmer Name Role Phone Kinjal Domingo GOVERNMENT RELATIONS DIRECTOR Primary Care Provider [phone] Encounters Date Type Department Care Team Description 06/29/2024 Results Follow-Up [facility] Primary Care at [address] [place] [id number] Kinjal Domingo NP 06/29/2024 12:01 PM INTERNAL REVENUE SERVICE AGENT Anesthesia Event [address] [address] Jason Lucero MD Tex, Neal P., OCULAR CARE TECHNOLOGIST 06/29/2024 11:30 AM INTERNAL REVENUE SERVICE AGENT - 06/29/2024 12:00 PM INTERNAL REVENUE SERVICE AGENT Surgery [address] [address] Herrera Caceres, DO COLON REMOVAL SNARE 06/29/2024 10:28 AM INTERNAL REVENUE SERVICE AGENT - 06/29/2024 1:21 PM INTERNAL REVENUE SERVICE AGENT Hospital Encounter [address] [address] Herrera Caceres, DO Hx of colonic polyps Discharge Disposition: Discharge to home or self care 06/23/2024 Telephone [facility] Gastroenterology at [address] [place] [phone] Joanna Licona MA 06/04/2024 1:30 PM INTERNAL REVENUE SERVICE AGENT Office Visit [facility] Diabetes Endocrine Care at [address] [place] [address] Kemi Golden GOVERNMENT RELATIONS DIRECTOR Type 2 diabetes mellitus with hyperglycemia, with long-term current use of insulin (HCC) (Primary Dx); Hypertension associated with diabetes (HCC); Type 2 diabetes mellitus with hyperlipidemia (HCC); freestyle mary 2 continuous glucose monitoring device 05/06/2024 Telephone [facility] Diabetes Endocrine Care at [address] [place] [address] Kemi Golden NP from Last 3 Months Allergies Active Allergy Reactions Criticality Noted Date Comments Adhesive Rash Medium 10/21/2013 Latex Rash Reaction: Rash, , Djfcqwh-Lad-Osl Reductase Inhibitors Muscle pain Medium 01/29/2023 Medications calcium carbonate-vitam in D3 (CALTRATE WITH VITAMIN D3) 1,500 mg [...] mouth daily 30 tablet 2 3 Active Additional Information Patient not taking.Reported on 06/04/2024 venlafaxine XR (EFFEXOR-XR) 37.5 mg 24 hr capsule TAKE 1 CAPSULE(37.5 MG) BY MOUTH DAILY 100 capsule 1 3 Active pen needle, diabetic (Pen Needle) 31 gauge x 5/16 needle USE TO INJECT INSULIN 4 TIMES DAILY DIRECTED 400 each 3 4 Active meclizine (ANTIVERT) 12.5 mg tabletIndicatio ns:Benign paroxysmal positional vertigo, unspecified laterality Take 1 tablet (12.5 mg total) by mouth 3 (three) times a day as needed for dizziness 60 tablet 4 Active lisinopriL (PRINIVIL,ZESTR IL) 5 mg tablet TAKE 1 TABLET(5 MG) BY MOUTH DAILY 90 tablet 3 4 Active omeprazole (PriLOSEC) 20 mg capsule TAKE 1 CAPSULE(20 MG) BY MOUTH DAILY 90 capsule 3 4 Active Xultophy 100/3.6 100 unit-3.6 mg /mL (3 mL) insulin pen penIndications: Type 2 diabetes mellitus with hyperglycemia, with long-term current use of insulin (HCC) Take 24 Units by mouth daily 30 mL 4 4 Active Additional Information Patient taking differently: 22 Unitsoral Daily, Reported on 06/04/2024 blood glucose diagnostic (glucose blood) strip Check [...] sensor. E11.65 180 strip 4 5 Active ondansetron (ZOFRAN) 4 mg tablet Take 1 tablet (4 mg total) by mouth 3 (three) times a day 20 tablet 5 07/24/19 25 Active Problems Problem Noted Date Diagnosed Date Type 2 diabetes mellitus wit h hyperglycemia, with long-term current use of insulin 06/04/2024 Type 2 diabetes mellitus with hyperlipidemia 11/2023 Assessment & Plan (03/06/2024 3:11 PM INTERNAL REVENUE SERVICE AGENT): -chronic, stable -Discussed/ordered labs -Patient is unable to tolerate statins due to muscle pain -continue on ezetimibe 10 mg daily Hx of colonic polyps 02/25/2024 Assessment & Plan (02/28/2024 11:36 AM CDT): Last colonoscopy completed 01/24/2017. Patient is scheduled for repeat colonoscopy on 06/29/2024 freestyle mary 2 continuous glucose monitoring device 10/22/2022 Assessment & Plan (06/04/2024 2:11 PM INTERNAL REVENUE SERVICE AGENT): Continuous glucose monitor (cgm) applied from 05/22/2024 to 06/04/2024 This device was placed for monitor and treatment of blood sugar. Interpretation of data- average glucose 165. In target range 68 %. 32 % hyperglycemia. 0% hypoglycemia Assessment & Plan (01/28/2024 5:06 PM CDT): Continuous glucose monitor (cgm) applied from 05/23/2023 to 06/05/2023 This device was placed for monitor and treatment of blood sugar. Download from 01/06/2024 2 01/19/2024 Interpretation of data- average glucose 155. In target range 68 %. 31 % hyperglycemia. 1 % nocturnal hypoglycemia Assessment & Plan (06/05/2023 4:09 PM INTERNAL REVENUE SERVICE AGENT): Continuous glucose monitor (cgm) applied from 05/23/2023 [...] needed Assessment & Plan (05/05/2020 4:57 PM INTERNAL REVENUE SERVICE AGENT): Meclizine p.r.n.. Call back for vestibular therapy if needed. Assessment & Plan (04/20/2020 8:18 PM INTERNAL REVENUE SERVICE AGENT): Meclizine p.r.n. call back for vestibular therapy [...] today Assessment & Plan (05/26/2021 5:41 PM INTERNAL REVENUE SERVICE AGENT): Continue calcium vitamin-D weight-bearing exercise repeat bone density scan per information technology project manager recommendations. Assessment & Plan (04/20/2020 8:17 PM INTERNAL REVENUE SERVICE AGENT): Calcium, vitamin-D, weight-bearing exercise repeat bone density scan per information technology project manager recommendations. Assessment & Plan (10/03/2019 1:28 PM CDT): Calcium, vitamin-D, weight-bearing exercise repeat bone density imaging with her information technology project manager. Assessment & Plan (01/27/2019 2:21 PM CDT): Calcium, vitamin-D, weight-bearing exercise. She is to discussed repeat imaging with her information technology project manager. Assessment & Plan (02/01/2017 5:09 PM CDT): [...] venlafaxine. Assessment & Plan (04/20/2020 8:18 PM INTERNAL REVENUE SERVICE AGENT): Reduce venlafaxine to 37.5 mg daily. If [...] -continue follow up with breast surgeon and information technology project manager as directed Assessment & Plan (08/26/2023 3:30 PM CDT): -continue follow up with breast surgeon and information technology project manager as directed -screening mammogram ordered today Assessment & Plan (01/27/2019 2:22 PM CDT): Follow-up with her breast surgeon and information technology project manager as they direct. Assessment & Plan (12/15/2017 2:48 PM CDT): Follow-up with her breast surgeon as a direct. The also manage her bone density scans. Assessment & Plan (02/01/2017 5:09 PM CDT): Follow-up with her specialist over in [place] who also manages her bone density scans [...] year. Assessment & Plan (04/20/2020 8:16 PM INTERNAL REVENUE SERVICE AGENT): Continue current supplementation and check level in [...] diet Assessment & Plan (06/05/2023 4:05 PM INTERNAL REVENUE SERVICE AGENT): This is a chronic condition which is [...] prescribed. Assessment & Plan (06/28/2022 1:15 PM INTERNAL REVENUE SERVICE AGENT): This is a chronic condition which is at goal of <140/90 Personally reviewed labs. Continue lisinopril. Avoid caffeine, caffeine will raise blood pressure and excessive alcohol consumption. Monitor your weight and B/P. Encouraged to take medications as prescribed. Assessment & Plan (05/16/2022 12:47 PM INTERNAL REVENUE SERVICE AGENT): Recommend DASH diet, heart-healthy lifestyle, exercise. Discussed [...] prescribed. Assessment & Plan (05/26/2021 5:40 PM INTERNAL REVENUE SERVICE AGENT): Well controlled on the current regimen. Avoidance of salt, proper body weight, and routine exercise recommended. Assessment & Plan (08/11/2020 2:44 PM CDT): Well controlled on the current regimen. Avoidance of salt, proper body weight, and routine exercise recommended. Assessment & Plan (05/05/2020 4:56 PM INTERNAL REVENUE SERVICE AGENT): Well controlled on the current regimen. Avoidance of salt, proper body weight, and routine exercise recommended. Assessment & Plan (04/20/2020 8:19 PM INTERNAL REVENUE SERVICE AGENT): Blood pressure stable. Patient noncompliant with medications [...] bone loss and vit B12 deficiency with mcc use of PPI with pt, would like to remain on medication at this time Assessment & Plan (04/20/2020 8:18 PM INTERNAL REVENUE SERVICE AGENT): Continue current PPI and the patient is [...] complication, with long-term current use of insulin 09/12/2013 Overview (08/01/2016): DMII WO CMP NT [...] eye exam. last dilated eye exam was [facility] Monofilament foot exam completed. Protective senses intact [...] exam Assessment & Plan (06/05/2023 4:08 PM INTERNAL REVENUE SERVICE AGENT): This is a chronic condition which is [...] pravastatin Assessment & Plan (06/28/2022 1:29 PM INTERNAL REVENUE SERVICE AGENT): This is a chronic condition which is [...] No history of macrovascular disease - CVA, CO. Continuous glucose monitor (cgm) applied from 06/15/2022 [...] blood sugar 4 times a day with [place] mary 2. Encouraged annual eye exam. Monofilament [...] No history of macrovascular disease - CVA, [place]. Continuous glucose monitor (cgm) applied from 02/14/2022 [...] No history of macrovascular disease - CVA, [place]. Assessment & Plan (08/17/2021 3:43 PM CDT): [...] No history of macrovascular disease - CVA, [place]. Assessment & Plan (07/05/2021 2:04 PM INTERNAL REVENUE SERVICE AGENT): This is a chronic condition which is [...] No history of macrovascular disease - CVA, [place]. Assessment & Plan (06/07/2021 4:41 PM INTERNAL REVENUE SERVICE AGENT): This is a chronic condition which is [...] No history of macrovascular disease - CVA, [place]. Assessment & Plan (05/26/2021 5:41 PM INTERNAL REVENUE SERVICE AGENT): A1c above goal. Reduce her Tresiba to 34 units due to of morning hypoglycemia. She needs any more regular with her mealtime insulin. She does not want to drive to [place] for her Endocrinology appointments anymore. Referral to Kemi Golden. Assessment & Plan (08/11/2020 2:45 PM CDT): A1c much improved. Continue her Tresiba I have urged her to start her NovoLog pre meal insulin as well. Follow-up with her talent acquisition consultant as they direct. Continue work on diet exercise weight loss. Assessment & Plan (04/20/2020 8:17 PM INTERNAL REVENUE SERVICE AGENT): A1c poorly controlled. Patient noncompliant with diet [...] Get a nutrition scale, Perfect Portions from [facility] to help with carb counting. - Make [...] her poor glycemic control. Follow-up with her talent acquisition consultant as they direct. Assessment & Plan (01/27/2019 2:21 PM CDT): A1c remains grossly uncontrolled. She must check blood sugars 3 times daily record and turn into her talent acquisition consultant. She is be more compliant with diet [...] exercise, weight loss. Follow up with her talent acquisition consultant as he directs. Patient is aware that [...] exercise and weight loss. Follow up her talent acquisition consultant as he directs. Check blood sugars 3 [...] relief. Assessment & Plan (05/26/2021 5:41 PM INTERNAL REVENUE SERVICE AGENT): Patient is compliant with the CPAP machine and gets symptomatic relief. Assessment & Plan (04/20/2020 8:17 PM INTERNAL REVENUE SERVICE AGENT): Patient is compliant with the CPAP machine [...] 08/26/2023 Assessment & Plan (05/05/2020 4:55 PM INTERNAL REVENUE SERVICE AGENT): Rest ice gentle stretching exercises, meloxicam, physical [...] needed Assessment & Plan (05/26/2021 5:42 PM INTERNAL REVENUE SERVICE AGENT): We discussed a comprehensive list of medical [...] needed. Assessment & Plan (04/20/2020 8:19 PM INTERNAL REVENUE SERVICE AGENT): We discussed a comprehensive list of medical [...] normal. Assessment & Plan (05/26/2021 5:41 PM INTERNAL REVENUE SERVICE AGENT): Timed get up and go test normal. Assessment & Plan (04/20/2020 8:19 PM INTERNAL REVENUE SERVICE AGENT): Timed get up and go test normal. [...] visit. Assessment & Plan (05/26/2021 5:41 PM INTERNAL REVENUE SERVICE AGENT): TSH and free T4 normal and she is without symptoms. Check again 1 year. Assessment & Plan (08/11/2020 2:45 PM CDT): She remains asymptomatic will check TSH and free T4 before next visit. Assessment & Plan (04/20/2020 8:17 PM INTERNAL REVENUE SERVICE AGENT): Asymptomatic and will check thyroid levels once [...] booster every 10 years. Yearly mammogram. Father information technology project manager for Pap smears as they direct. Colonoscopy [...] spasms. Assessment & Plan (06/05/2023 4:04 PM INTERNAL REVENUE SERVICE AGENT): >>ASSESSMENT AND PLAN FOR HYPERLIPIDEMIA WRITTEN ON 02/01/2017 5:08 PM BY MARY PADRON MD LDL much better controlled on atorvastatin. Assessment & Plan (06/05/2023 4:04 PM INTERNAL REVENUE SERVICE AGENT): >>ASSESSMENT AND PLAN FOR HYPERLIPIDEMIA WRITTEN ON 12/15/2017 2:48 PM BY MARY PADRON MD Continue atorvastatin. Assessment & Plan (06/05/2023 4:04 PM INTERNAL REVENUE SERVICE AGENT): >>ASSESSMENT AND PLAN FOR HYPERLIPIDEMIA WRITTEN ON 07/21/2018 5:00 PM BY MARY PADRON MD Hold her atorvastatin to see if this helps her lower extremity muscle spasms. Continue Zetia for now Assessment & Plan (06/05/2023 4:04 PM INTERNAL REVENUE SERVICE AGENT): >>ASSESSMENT AND PLAN FOR HYPERLIPIDEMIA WRITTEN ON 01/27/2019 2:22 PM BY MARY PADRON MD Well controlled on current therapy and will check a lipid panel and LFTs in 6 months. Assessment & Plan (06/05/2023 4:04 PM INTERNAL REVENUE SERVICE AGENT): >>ASSESSMENT AND PLAN FOR HYPERLIPIDEMIA WRITTEN ON 10/03/2019 1:29 PM BY MARY PADRON MD She needs to make sure that she is taking her Zetia and atorvastatin. Assessment & Plan (06/05/2023 4:04 PM INTERNAL REVENUE SERVICE AGENT): >>ASSESSMENT AND PLAN FOR HYPERLIPIDEMIA WRITTEN ON 10/26/2019 1:02 PM BY MIRZA MONTALVO MD Recheck lipids after A1c and glucoses correct. The combination of lower glucoses and GLP1 may have a positive effect on TG in particular, also TC. Assessment & Plan (06/05/2023 4:04 PM INTERNAL REVENUE SERVICE AGENT): >>ASSESSMENT AND PLAN FOR HYPERLIPIDEMIA WRITTEN ON 05/05/2020 3:24 PM BY MARY PADRON MD Non compliant with her atorvastatin and would recommend restarting and the rationale for this discussed at length. Long-term risks posed her health with failure to do so discussed at length. Assessment & Plan (06/05/2023 4:04 PM INTERNAL REVENUE SERVICE AGENT): >>ASSESSMENT AND PLAN FOR HYPERLIPIDEMIA WRITTEN ON 02/22/2020 12:24 PM BY MIRZA MONTALVO MD LDL is way too high for someone with T2DM. Please do the following: - Take atorvastatin every day - Take ezetimibe every day - Discuss with Dr. Padron next steps and recheck. Assessment & Plan (06/05/2023 4:04 PM INTERNAL REVENUE SERVICE AGENT): >>ASSESSMENT AND PLAN FOR HYPERLIPIDEMIA WRITTEN ON 05/05/2020 4:56 PM BY MARY PADRON MD She has not filled Crestor and atorvastatin due to lower extremity complaints. Try Zetia alone. Try pravastatin next visit if needed. Assessment & Plan (06/05/2023 4:04 PM INTERNAL REVENUE SERVICE AGENT): >>ASSESSMENT AND PLAN FOR HYPERLIPIDEMIA WRITTEN ON 08/11/2020 2:44 PM BY MARY PADRON MD Let us try pravastatin Saturday and Saturday and call back if she develops any side effects and will discontinue it at that point. Continue Zetia. Assessment & Plan (06/05/2023 4:04 PM INTERNAL REVENUE SERVICE AGENT): >>ASSESSMENT AND PLAN FOR HYPERLIPIDEMIA WRITTEN ON 05/26/2021 5:41 PM BY MARY PADRON MD Stable on Zetia and pravastatin Assessment & Plan (06/05/2023 4:04 PM INTERNAL REVENUE SERVICE AGENT): >>ASSESSMENT AND PLAN FOR HYPERLIPIDEMIA WRITTEN ON [...] prescribed. Assessment & Plan (06/05/2023 4:04 PM INTERNAL REVENUE SERVICE AGENT): >>ASSESSMENT AND PLAN FOR HYPERLIPIDEMIA WRITTEN ON [...] prescribed. Assessment & Plan (06/05/2023 4:04 PM INTERNAL REVENUE SERVICE AGENT): >>ASSESSMENT AND PLAN FOR HYPERLIPIDEMIA WRITTEN ON [...] prescribed. Assessment & Plan (06/05/2023 4:04 PM INTERNAL REVENUE SERVICE AGENT): >>ASSESSMENT AND PLAN FOR HYPERLIPIDEMIA WRITTEN ON 12/17/2022 9:35 AM BY MARY PADRON MD Failed 3 different statins. Recommend diet exercise and retry Zetia and check lipids before next visit. Assessment & Plan (06/05/2023 4:04 PM INTERNAL REVENUE SERVICE AGENT): This is a chronic condition which is not at goal of LDL less than 70 Continue Zetia. Does not tolerate statins Encouraged to eat healthy, include fresh fruits and vegetables daily and avoid eating fried foods more than once per week. Encouraged to take medications as prescribed. Assessment & Plan (06/05/2023 4:04 PM INTERNAL REVENUE SERVICE AGENT): >>ASSESSMENT AND PLAN FOR TYPE 2 DIABETES MELLITUS WITH HYPERLIPIDEMIA (HCC) WRITTEN ON 02/19/2023 11:16 AM BY MARY PADRON MD A1c just above goal but much improved from her baseline over the past few years. Follow-up with her talent acquisition consultant as they direct. >>ASSESSMENT AND PLAN FOR [...] prescribed. Assessment & Plan (06/28/2022 1:14 PM INTERNAL REVENUE SERVICE AGENT): This is a chronic condition which is [...] prescribed. Assessment & Plan (06/05/2023 4:04 PM INTERNAL REVENUE SERVICE AGENT): >>ASSESSMENT AND PLAN FOR TYPE 2 DIABETES [...] Hypersomnia 06/26/2013 02/01/2017 Overview (08/01/2016): Hypersomnia Immunizations Immunization Administration Dates Next Due COVID-19 mRNA (Diagnose.me) 0.3 m L (30 mcg) vaccine (12 [...] than three times a week 05/13/2020 Attends Religion Services Not on file 05/13 Active Member [...] things needed for daily living? No 05/13/2020 Personal Safety Answer Date Recorded Have you ever been in or are you currently in a harmful physical or emotional relationship or is someone making you feel afraid or unsafe? Denies 06/29/2024 Comments No Sex and Gender Information Value Date Recorded Sex Assigned at Not on file Legal Sex Female 7:03 PM INTERNAL REVENUE SERVICE AGENT Gender Identity Not on file Sexual Orientation Not on file Last Filed Vital Signs Vital Sign Reading Time Taken Comments Blood Pressure 96/53 06/29/2024 1:01 PM INTERNAL REVENUE SERVICE AGENT Pulse 67 06/29/2024 1:01 PM INTERNAL REVENUE SERVICE AGENT Temperature 36.8 C (98.3 F) 06/29/2024 1:01 PM INTERNAL REVENUE SERVICE AGENT Respiratory Rate 16 06/29/2024 1:01 PM INTERNAL REVENUE SERVICE AGENT Oxygen Saturation 100% 06/29/2024 1:01 PM INTERNAL REVENUE SERVICE AGENT Inhaled Oxygen Concentration - - Weight 64.4 kg (142 lb) 06/29/2024 10:49 AM INTERNAL REVENUE SERVICE AGENT Height 149.9 cm (4' 11 ) 06/29/2024 10:49 AM INTERNAL REVENUE SERVICE AGENT Body Mass Index 28.68 06/29/2024 10:49 AM INTERNAL REVENUE SERVICE AGENT Plan of Treatment Not on file Medical Devices Implanted Type Area Professional Nursing Tutor Device Identifier Shelf Expiration Date Model / Serial / Lot Bard Peripheral Vascular Ultraclip Bard 17ga 10cm 2 Trigger Permanent Ultrasound [id number] - [id number] - [id number] Implanted:Qty: 1 on 12/05/2023 by Davian Banks MD at [facility] Breast Right: Breast Bard Peripheral Vascular 09/23/2025 [id number] / [id number] / [id number] Description:Implanted Right Breast 8:00 area 5 cmfn Procedures Procedure Name Priority Date/Time Associated Diagnosis Comments SURGICAL PATHOLOGY STAT 06/29/2024 1: 21 PM INTERNAL REVENUE SERVICE AGENT Hx of colonic polyps ENDO ADD ON COLON BIOPSY 06/29/2024 11:56 AM INTERNAL REVENUE SERVICE AGENT Hx of colonic polyps COLON REMOVAL SNARE 06/29/2024 1 1:56 AM INTERNAL REVENUE SERVICE AGENT Hx of colonic polyps POCT GLUCOSE DEVICE Routine 06/29/2024 1 1:47 AM INTERNAL REVENUE SERVICE AGENT COLONOSCOPY 06/29/2024 10:34 AM INTERNAL REVENUE SERVICE AGENT POCT HEMOGLOBIN A1C Routine 06/04/2024 1 :41 PM INTERNAL REVENUE SERVICE AGENT Type 2 diabetes mellitus with hyperglycemia, with long-term current use of insulin (HCC) POCT GLUCOSE Routine 06/04/2024 1:41 PM INTERNAL REVENUE SERVICE AGENT Type 2 diabetes mellitus with hyperglycemia, with long-term current use of insulin (HCC) EGFR Routine 01/28/2024 2:44 PM CDT Type [...] screening HM DIABETES FOOT EXAM Routine 03/08/2017 SERUM HEPATITIS C AB Routine 07/16/2016 10:29 AM CDT from Last 3 Months or Most Recently Relevant to Health Maintenance Results * Surgical pathology (06/29/2024 1:21 PM INTERNAL REVENUE SERVICE AGENT) Tissue (Polyp(s), colon/colorectal, esophageal, gastric) 06/29/2024 12:31 PM INTERNAL REVENUE SERVICE AGENT Tissue (Polyp(s), colon/colorectal, esophageal, gastric) 06/29/2024 12:31 PM INTERNAL REVENUE SERVICE AGENT Tissue (Polyp(s), colon/colorectal, esophageal, gastric) 06/29/2024 12:31 PM INTERNAL REVENUE SERVICE AGENT Narrative PATHOLOGY [facility] - 07/01/2024 3:48 PM INTERNAL REVENUE SERVICE AGENT EPIC results best viewed via link to PDF [facility] Department of Pathology [address] [place] [address] Note to Patients: This report may contain a detailed description of human tissue sent by a health care provider to the laboratory for pathologic evaluation. The content of this report is essential for diagnosis and may provide important critical findings. This information may be unfamiliar to patients to review without a medical professional present. It is advised that the patient review this report in the presence of a health care provider who can answer questions and explain the details. Final Report Patient Name: ANYA BHATIA Address: [address] [place], [place] [address]ARIES [place], [place] [address]- Gender: F : 1955 (Age: 69) Service: Gastro Location: [facility] Hospital #: [id number] Patient Type: [facility] Taken: 06/29/2024 Received: 06/30/2024 Accessioned: 06/30/2024 Reported: 07/01/2024 Physician(s):Monica SteelO. Diagnosis: A. Colon, cecum, biopsy: - Tubular adenoma. - No evidence of high-grade dysplasia or malignancy. B. Colon, descending, biopsies: - Tubular adenoma. - Early/evolving hyperplastic polyp. - No evidence of high-grade dysplasia or malignancy. C. Colon, descending, biopsies: - Tubular adenoma fragments (x3). - No evidence of high-grade dysplasia or malignancy. Ho Rivas MD Report Electronically Reviewed and Signed Out By Ho Rivas MD 07/01/2024 15:48:06 Specimen(s) Received: A: Cecum polyp x 1 B: Ascending colon polyp x 2 C: Descending colon polyp x 3 Microscopic Description: A. Microscopic examination shows two polypoid fragments of colonic mucosa, one of which shows adenomatous mucosal changes consistent with a tubular adenoma. There is no evidence of high-grade dysplasia or malignancy. B. Microscopic examination of routine and numerous deeper levels shows two polypoid fragments of colonic mucosa, one of which shows adenomatous mucosal changes. The remaining fragment shows subtle hyperplastic glandular changes without evidence of marked crypt dilation, lateral branching, or flattening of the crypt bases. The endoscopic impression of two descending colon polyps is noted. The findings are consistent with a tubular adenoma and an early/evolving hyperplastic polyp. There is no evidence of high-grade dysplasia or malignancy. C. Microscopic examination shows five polypoid fragments of colonic mucosa, three of which show adenomatous mucosal changes consistent with tubular adenoma fragments. There is no evidence of high-grade dysplasia or malignancy. Clinical History: History of colonic polyps. Colonoscopy. Gross Description: The specimen is submitted in three formalin containers labeled ANYA GIACALONE . A. The first container is labeled cecum polyp x1 . It is 2 fragments of kaur tissue, 1 and 3 mm. All in A. B. The second container is labeled ascending colon polyp x2 . It is 2 fragments of kaur tissue measuring 2 mm. All in B. C. The third container is labeled descending colon polyp x3 . It is 5 fragments of kaur tissue between 1 and 3 mm. All in C. T.A. Norberto Bonilla., P.Steven./Nicol Sanders M.D. REPORT IMAGES AND SCANNED DOCUMENTS, IF INCLUDED, ONLY VIEWABLE IN PDF VERSION OF REPORT The performance characteristics of some immunohistochemical stains, fluorescence in-situ hybridization tests and immunophenotyping by flow cytometry cited in this report (if any) were determined by the Surgical Pathology Department at [facility] as part of an ongoing quality intern program and in compliance with federally mandated regulations drawn from the Clinical Laboratory Improvement Act of 1988 (CLIA '88). Some of these tests rely on the use of analyte specific reagents and are subject to specific labeling requirements by the US Food and Drug Administration. Such diagnostic tests may only be performed in a facility that is certified by the Department of Health and Human Services as a high complexity laboratory under CLIA '88. The FDA has determined that such clearance or approval is not necessary. This test is used for clinical purposes. It should not be regarded as investigational or for research. Nevertheless, federal rules concerning the medical use of analyte specific reagents require that the following disclaimer be attached to the report: This test was developed and its performance characteristics determined by the Surgical Pathology Department [facility]. It has not been cleared or approved by the U. S. Food and Drug Administration. Note for decalcified specimens: This assay has not been validated on decalcified tissues. Results should be interpreted with caution given the possibility of false negativity on decalcified specimens Herrera Caceres DO LAB PATHOLOGY ORDERABLES Final Result PATHOLOGY [facility] ([place]) [address] [place] [address] * POCT glucose (06/29/2024 11:47 AM INTERNAL REVENUE SERVICE AGENT) Glucose, POC 135 70 - 199 mg/dL Blood 06/29/2024 11:4 7 AM INTERNAL REVENUE SERVICE AGENT 06/29/2024 11:47 AM INTERNAL REVENUE SERVICE AGENT Herrera Caceres DO LAB POCT ORDERABLES - DEVICE F inal Result Performing Organization Address City/[facility]/ZIP Co de Phone Number CERNER [facility] ([place]) [address] [facility] Department [place] [address] * Colonoscopy (06/29/2024 10:34 AM INTERNAL REVENUE SERVICE AGENT) Anatomical Region Laterality Modality Other Narrative Procedure Note Herrera Caceres DO - 06/29/2024 10:34 AM CST Digestive [facility] Patient Name: Anya Bhatia Procedure Date: 06/29/2024 10:34 AM Date of : 1955 Admit Type: Outpatient Age: 69 Gender: Female Attending MD: Herrera Caceres D.O. Room: [facility] ENDOSCOPY ROOM 2 Note Status: Finalized Patient Profile: Refer to note in patient chart for documentation of history and physical. Procedure: Colonoscopy Indications: High risk colon cancer surveillance: Personalhistory of colonic polyps, Last colonoscopy: December2016 Referring MD: Kinjal Domingo NP Providers: Herrera Caceres D.O. Impression: - The examined portion of the ileum was normal. - One 2 mm polyp in the cecum, removed with a jumbo cold forceps. Resected and retrieved. - Two 2 to 3 mm polyps in the ascending colon,removed with a jumbo cold forceps. Resected andretrieved. - One 7 mm polyp in the ascending colon, removedwith a hot snare. Resected and retrieved. - Three 2 to 3 mm polyps in the descending colon, removed with a jumbo cold forceps. Resected and retrieved. Recommendation: - Discharge patient to home. - Resume previous diet. - Continue present medications. - Await pathology results. - Repeat colonoscopy in 3 years for surveillance. - Return to primary care physician. Medicines: Monitored Anesthesia Care Complications: No immediate complications. Estimated Blood Loss: Estimated blood loss: none. Procedure: Pre-Anesthesia Assessment: - As per anesthesia. The benefits, risks and alternatives of theprocedure and sedation were discussed and informed consentwas obtained. All questions were answered. Please referto the signed informed consent document in the medical record. The bowel preparation used was Miralax via split dose instruction. The bowel preparation usedwas bisacodyl tablets via split dose instruction. The scope was passed under direct vision. The Pediatric Colonoscope [id number] was introduced through the anus and advanced to the 5 cm into the ileum. The colonoscopy was performed without difficulty. The patient tolerated the procedurewell. The quality of the bowel preparation was good. The terminal ileum, ileocecal valve, appendicealorifice, and rectum were photographed. Findings: The perianal and digital rectal examinations were normal. The terminal ileum appeared normal. A 2 mm polyp was found in the cecum. The polyp was removed with ajumbo cold forceps. Resection and retrieval were complete. Two polyps were found in the ascending colon. The polyps were 2 to 3mm in size. These polyps were removed with a jumbo cold forceps.Resection and retrieval were complete. A 7 mm polyp was found in the ascending colon. The polyp was removed with a hot snare. Resection and retrieval were complete. Three polyps were found in the descending colon. The polyps were 2 to3 mm in size. These polyps were removed with a jumbo cold forceps. Resection and retrieval were complete. No additional abnormalities were found on retroflexion. Electronically signed by Herrera Caceres M.D. Herrera Caceres D.O. 06/29/2024 12:41:57 PM Number of Addenda: 0 Note Initiated On: 06/29/2024 10:34 AM Procedure Code(s): --- Professional --- 63946, Colonoscopy, flexible; with removal of tumor(s), polyp(s), or other lesion(s) by snare technique 55370, 59, Colonoscopy, flexible; with biopsy, single or multiple --- Technical --- 88510, Colonoscopy, flexible; with removal of tumor(s), polyp(s), or other lesion(s) by snare technique 43626, 59, Colonoscopy, flexible; with biopsy, single or multiple Diagnosis Code(s): --- Professional --- Z86.010, Personal history of colonic polyps D12.0, Benign neoplasm of cecum D12.2, Benign neoplasm of ascending colon D12.4, Benign neoplasm of descending colon --- Technical --- Z86.010, Personal history of colonic polyps D12.0, Benign neoplasm of cecum D12.2, Benign neoplasm of ascending colon D12.4, Benign neoplasm of descending colon CPT copyright 2020 [employer]. All rights reserved. The codes documented in this report are preliminary and upon expeditionary fighting vehicle crewman reviewmay be revised to meet current compliance requirements. Recognized by the [employer] for promoting quality in endoscopy Herrera Caceres DO ENDOSCOPY PROCEDURES Final Res ult * (ABNORMAL) POCT hemoglobin A1c (06/04/2024 1:41 PM INTERNAL REVENUE SERVICE AGENT) Hemoglobin A1C, POC 8.3 4.0 - 5.6 % Blood 06/04/2024 1:41 PM INTERNAL REVENUE SERVICE AGENT Kemi Golden NP POINT OF CARE TEST ORDERABLES F inal Result * POCT glucose (06/04/2024 1:41 PM INTERNAL REVENUE SERVICE AGENT) Glucose Blood, POC 204 mg/dL Blood 06/04/2024 1:41 PM INTERNAL REVENUE SERVICE AGENT Kemi Golden NP POINT OF CARE TEST ORDERABLES F inal Result * eGFR (01/28/2024 2:44 PM CDT) eGFR 62 >=60 mL/min/1. 73 m2 Comment: Interpretive Data Reference Interval Normal >/= 90 mL/min/1.73m2 Mildly decreased* 60 - 89 mL/min/1.73m2 Mildly to moderately decreased 45 - 59 mL/min/1.73m2 Moderately to severely decreased 30 - 44 mL/min/1.73m2 Severely decreased 15 - 29 mL/min/1.73m2 Kidney Failure < 15 mL/min/1.73m2 *Relative to young adult level Estimated glomerular [...] CDT 01/28/2024 6:23 PM CDT Kemi Golden NP LAB BLOOD ORDERABLES Final Resu lt Performing Organization Address [facility] Co de Phone Number SAMANTA [id number] [place] [address] * (ABNORMAL) Albumin Creatinine Ratio, Urine (01/28/2024 2:44 PM CDT) Albumin Ur 27.5 mg/L Comment: Interpretive Data No reference range established. Current interpretive data was last revised 2018. Creatinine Ur 69.2 mg/dL SAMANTA Comment: Interpretive Data No reference range established. Current interpretive data was last revised 2018. Albumin Creatinine Ratio, Ur 40(H) 1 - 29 mg/g SAMANTA Urine 01/28/2024 2:44 PM CDT 01/28/2024 6:22 PM CDT Kemi Golden NP LAB URINE ORDERABLES Final Resu lt Performing Organization Address City/[facility]/ZIP Co de Phone Number SAMANTA [address] [place] [place] [address] * (ABNORMAL) Lipid panel (01/28/2024 2:44 PM CDT) Cholesterol 249(H) 30 - 199 mg/dL Comment: Interpretive Data Ages < or = 19 years Acceptable: <170 mg/dL Borderline high: 170-199 mg/dL High: >or= 200 mg/dL Ages > or = 20 years Desirable: <200 mg/dL Borderline high: 200-239 mg/dL High: >or= 240 mg/dL Literature References: 1. Expert Panel on Integrated Guidelines for Cardiovascular Health and Risk Reduction in Children and Adolescents. Pediatrics 2011;128:S213 2. NCEP Expert Panel. Circulation 2004;110:227 Current Interpretive Data was last revised on 2017. Triglycerides 271(H) <=149 mg/dL SAMANTA JENKINS Comment: Interpretive Data Ages < or = 9 years Acceptable: <75 mg/dL Borderline high: 75-99 mg/dL High: >or= 100 mg/dL Ages 10 to 20 years Acceptable: <90 mg/dL Borderline high: 90-129 mg/dL High: >or= 130 mg/dL Ages > or = 20 years Desirable: <150 mg/dL Borderline high: 150-199 mg/dL High: 200-499 mg/dL Very high: >or= 499 mg/dL Literature References: 1. Expert Panel on Integrated Guidelines for Cardiovascular Health and Risk Reduction in Children and Adolescents. Pediatrics 2011;128:S213 2. NCEP Expert Panel. Circulation 2004;110:227 Current Interpretive Data was last revised on 2017. HDL 44 >=40 mg/dL SAMANTA JENKINS Comment: Interpretive Data Ages < or = 19 years Acceptable: >45 mg/dL Borderline low: 40-45 mg/dL Low: <40 mg/dL Ages > or = 20 years Desirable: >or= 60 mg/dL Low: <40 mg/dL Literature References: 1. Expert Panel on Integrated Guidelines for Cardiovascular Health and Risk Reduction in Children and Adolescents. Pediatrics 2011;128:S213 2. NCEP Expert Panel. Circulation 2004;110:227 Current Interpretive Data was last revised on 2017. LDL, calculated 155(H) <=129 mg/dL SAMANTA JENKINS Comment: Interpretive Data Ages < or = 19 years Acceptable: <110 mg/dL Borderline high: 110-129 mg/dL High: >or= 130 mg/dL Ages > or = 20 years Optimal: <100 mg/dL Near optimal: 100-129 mg/dL Borderline high: 130-159 mg/dL High: >160 mg/dL Calculated using the Cyrus LDL-C estimating [...] Data Ages < or = 19 years Acceptable: <120 mg/dL Borderline high: 120-144 mg/dL High: >145 mg/dL Ages > or = 20 years When triglycerides are >200 mg/dL, Non-HDL cholesterol is a secondary target of therapy with treatment goals that are 30 mg/dL greater than the LDL cholesterol target. Literature References: 1. Expert Panel on Integrated Guidelines for Cardiovascular Health and Risk Reduction in Children and Adolescents. Pediatrics 2011;128:S213 2. NCEP Expert Panel. Circulation 2004;110:227 Current Interpretive Data was last revised on 2017. Chol/HDL ratio 6 SAMANTA Blood 01/28/2024 2:44 PM CDT 01/28/2024 6:22 PM CDT Narrative SAMANTA - 01/28/2024 6:45 PM CDT These lab test should be done fasting. This means do not eat or drink for at least 12 hours prior to getting your blood drawn. Has the patient been fasting for 8 hours or more?->Yes us Kemi Golden NP LAB BLOOD ORDERABLES Final Resu lt SAMANTA JENKINS [id number] Department [place] [address] * (ABNORMAL) Diabetic Eye Exam (12/12/2023) Generic External Data Provider [facility] MAINTENANC E Final Result * (ABNORMAL) Screening [...] KINJAL DOMINGO HISTORY: Routine screening mammography. COMPARISON: 12/25/2021, 12/26/2020, 12/07/2019, 12/17/2018 TECHNIQUE: CC and MLO views of the bilateral breasts were obtained with digital technique using breast tomosynthesis with C view. Computer aided detection was utilized. FINDINGS: DENSITY: There are scattered fibroglandular elements in the bilateral breasts. BREASTS: There is postoperative change in the bilateral breasts. Scattered microcalcifications are present in the left breast. There is a biopsy marker clip in the left breast. There is a new focal asymmetry in the central right breast. There are no other suspicious masses, suspicious calcifications, or other suspicious findings in either breast. Kinjal Domingo GOVERNMENT RELATIONS DIRECTOR IMG MAMMO PROCEDURES Final R esult * [...] history of: screening Osteoporosis screening Post menopausal Professional Nursing Tutor/Model: Zify Discovery SL (S/N 22003) CLINICAL INFORMATION: Current height: 59.5 inches Maximum [...] mass (T-score between -1.0 and -2.5) replaces the previously used term osteopenia Osteoporosis (T-score = or [...] major osteoporosis related fracture and hip fracture. According to the National Osteoporosis Foundation guidelines, postmenopausal [...] Trell Arias M.D. MF: REGINA Report ID: [id number] Reading Location: [place] [address] Procedure Note Trell Arias MD - 10/17/2023 EXAM DESCRIPTION: DEXA AXIAL SKELETON BONE DENSITY 1 OR MORE SITES REASON FOR STUDY: 68 y/o year old F with given history of: screening Osteoporosis screening Post menopausal Professional Nursing Tutor/Model: Hyperpublic SL (S/N 24008) CLINICAL INFORMATION: Current height: 59.5 inches Maximum [...] Trell Arias M.D. MF: REGINA Report ID: [id number] Reading Location: [id number] Kinjal Domingo GOVERNMENT RELATIONS DIRECTOR IMG DXA PROCEDURES Final Res ult * DIABETES FOOT EXAM (03/08/2017) Pathologist [facility] Diabetic Foot Exam Unknown Historical Provider HEALTH MAINTENANCE Final Result * (ABNORMAL) Serum Hepatitis C ab (07/16/2016 10:29 AM CDT) [facility] HCV ab REACTIVE( A) NON-REACT INOCENCIO CDR [...] infection. Serum 07/16/2016 10:2 9 AM CDT Historical Provider LAB BLOOD ORDERABLES Shirley l Result CDR HISTORICAL RESULTS from Last 3 Months or Most Recently Relevant to Health Maintenance Insurance MEDICARE [place] [place] MEDICARE [place] MEDICARE [facility] Advance Directives For more information, please contact: [phone] * Full Code (Latest Code Status on File) Date Activated Date Inactivated Comments 06/29/2024 10:41 AM 06/29/2024 5:26 PM * Full Code Date Activated Date Inactivated Comments 06/29/2024 10:41 AM 06/29/2024 10:41 AM Care Teams Cnc Operator Programmer Relationship Specialty Start Date End Date Kinjal Domingo NP [address] [place] [address] DR [address]A [address] [place] [id number] PCP - General Family Medicine 08/26/23
--- OUTSIDE RECORDS SUMMARY | 2024-07-26 14:11 | XMS_ITS | Encounter Summary ---
Author Organization [facility] Healthcare Address [address] [place] [address] Care Team Providers Care Insurance Broker Name Role Phone Kinjal Domingo [employer]ATH[employer] Primary Care Provider [phone] Encounter Details Date Type Department Care Team (Late st Contact Info) Description 06/29/2024 Results Follow-Up 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
--- OUTSIDE RECORDS SUMMARY | 2024-07-26 14:11 | XMS_ITS | Encounter Summary ---
Author Organization [facility] Medical Group Address [address] [place] [address] Care Team Providers Care Administrative Services Director Name Role Phone Peter Padron MD Primary Care Provider [phone] Peter Padron MD Primary Care Provider [phone] Nicki Monk [facility] Unavailable [phone] Kinjal Domingo NP Primary Care Provider [phone] Reason for Referral * Diagnostic Imaging (Routine) - Closed Specialty Diagnoses / Procedures Referred By Contac t Referred To Contact Procedures Dexa Axial Skeleton Bone Density 1 or 2 Site [facility] Health Information Management [address] [place] [address] Phone: tel: fax: [facility] Medical Group Referral ID Status Reason Start Date Expiration Date Visits Re quested Visits Authorized [id number] Closed 01/12/2019 07/23/2020 1 1 Encounter Details Date Type Department Care Team (Late st Contact Info) Description 01/21/2014 Orders Only [facility] Health Information Management [address] [place] [address] Peter Padron MD [address] [facility] [address], [place] [address] Social History Tobacco Use Types Packs/Day Years Used Date Smoking Tobacco: Never Alcohol Use Standard Drinks/Week Comments No 0 (1 standard drink = 0.6 oz pur e alcohol) Comments Unknown Sex and Gender Information Value Date Recorded Sex Assigned at Not on file Legal Sex Female 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 CORPORATION OFFICER Gender Identity Not on file Sexual Orientation [...] COVID: Suspected 04/24/2022 04/24/2022 04/24/2022 11:58 AM CORPORATION OFFICER COVID: Suspected 12/17/2022 12/17/2022 12/17/2022 5:26 PM CDT documented as of this encounter Care Teams Administrative Services Director Relationship Specialty Start Date End Date Peter Padron MD PCP - General 07/27/16 08/25/23 Peter Padron MD PCP - General 10/31/12 07/26/16 Kinjal Domingo NP [address] [place] [address] PCP - General Family Medicine 08/26/23 Nicki Monk, SIDE GUIDER [address] [place] [address] Senior Technical Support Engineer 05/04/20 06/01/20 documented as of this encounter
--- OUTSIDE RECORDS SUMMARY | 2024-07-26 14:11 | XMS_ITS | Clinical Summary ---
Author Organization [facility] Address [address] [place] [address] Care Team Providers Care Associate Professor Of Communication Name Role Phone Peter Padron MD Primary Care Provider [phone] Source Comments [facility],non-owned Affiliates and Associated Physician Practices is amultiple site organization consisting of ambulatory clinics and hospital sitesin [place], [place], [place] and [place]. This disclosure is being madepursuant to the Care Everywhere program and may not contain all information available regarding this patient. Last updated 18.[employer] [facility] Allergies No known active allergies Medications * [...] 74.8 kg (165 lb) 05/12/2012 12:29 PM MIX HOUSE TENDER Height 154.9 cm (5' 1 ) 05/12/2012 12:29 PM MIX HOUSE TENDER Body Mass Index 31.18 05/12/2012 12:29 PM MIX HOUSE TENDER Plan of Treatment Health Maintenance Due Date [...] to complete this topic MENINGOCOCCAL (Group B) VACC INE SHARED DECISION-MAKING Aged Out No longer eligibl e based on patient's age to complete this topic MENINGOCOCCAL GROUPS A/C/Y/W VACCINE Aged Out No longer eligible b ased on patient's age to complete this topic Care Teams Associate Professor Of Communication Relationship Specialty Start Date End Date Peter Padron MD PCP - General Internal Medicine 01/25/12
--- OUTSIDE RECORDS SUMMARY | 2024-07-26 14:11 | XMS_ITS | Continuity of Care Document ---
Author Organization [facility] Address [address] [place] [address] Phone Care Team Providers Care Rug Drying Machine Operator Name Role Phone David OD OD, Sheridan [...] STAGE TORIC IOL COSMETIC NMN OFFICE/OUTPATIENT VISIT, [facility] 2 EYES Advance Directives Directive Yes / No Effective Date File Name No Information Encounters Encounter Description Practice Location Reason(s) For Visit Diagnoses Date Provider Providers Copied on Encounter [facility], [address] [place] [address], [id number], tel:[phone] OPH CONSULT DIMPLE [place] 1 week PO OD (chief complaint) Pseudoaphakia 1 Derheimer OD Sher[place]. [address], [address], [place], [place], [id number], [place]. tel:[phone] Referring Provider: Peter Padron MD, [address] [place] [address] [address], [place], [address]. tel:[phone] [facility], [address] [place] [address], [id number], tel:[phone] OPH CONSULT DIMPLE [place] Post-Op (chief complaint) Presence of intraocular lens 1 [place] Cardoso. [address], [address], [place], [place], [id number], [place]. tel:[phone] Referring Provider: Peter Padron MD, [address], [place], [address]. tel:[phone] [facility], [address] [place] [address], [id number], [place] tel:[phone] [address] [place] [address] [facility] No Information 1 [place] Cardoso. [address], [address], [place], [place], [id number], [place]. tel:[phone] Referring Provider: Walker Ambrosio, [address], [place], [address] . tel:[phone] [facility], [address] [place] [address], [id number], [place] tel:[phone] OPH CONSULT DIMPLE [place]GORE post op (chief complaint) Pseudoaphakia 1 Derheimer OD Sher[place]. [address], [address], [place], [place], [id number], [place]. tel:[phone] Referring Provider: Peter Padron MD, [address], [place], [address]. tel:[phone] [facility], [address] [place] [address], [id number], [place] tel:[phone] OPH CONSULT DIMPLE [place] Post-Op (chief complaint) Age-related nuclear cataract, bilateral 1 [place] Cardoso. [address], [id number], [place]. tel:[phone] Referring Provider: Peter Padron MD, [address], [place], [address]. tel:[phone] [facility], [address] [place] [address], [id number], [place] tel:[phone] [address] [place] [address] [facility] No Information 0 1 [place] Cardoso. [address], [address], [place], [place], [id number], [place]. tel:[phone] Referring Provider: Walker Ambrosio, [address], [place], [address] . tel:[phone] [facility], [address] [place] [address], [id number], tel:[phone] OPH CONSULT DIMPLE [place] No Information 1 [place] Cardoso. [address], [place], [place], [id number], [place]. tel:[phone] Referring Provider: Peter Padron MD, [address], [place], [address]. tel:[phone] OFFICE/OUTPA TIENT VISIT, [facility], [address] [place] [address], [place], [place], [id number], tel:[phone] OPH CONSULT DIMPLE [place] Cataract eval (chief complaint) Diabetic eye exam (chief complaint) Age-related nuclear cataract, bilateralDry eye syndrome of bilateral lacrimal glandsDermatoch alasis of left upper eyelidSquamous blepharitis left upper eyelidType 2 diabetes mellitus without complication, unspecified whether halfway insulin use 1 [place] Cardoso. [address], [place], [place], [id number], . tel:[phone] Referring Provider: Peter Padron MD, [address], [place], [address]. tel:[phone] Family History Family Member Type Diagnosis Age At Onset No Information Payers Payer name Insurance type Covered constitution party ID Authoriza tion(s) No Information Social [...] She was referred by Dr. Man STODDARD Reason For Referral Reason For Referral No Information Plan Of Treatment Date Type Action Status Referral Ordered: Blanca Conway [facility] Providers : Cupola Man (related to Pseudoaphakia) ordered Referral Referred To: Blanca Conway [address] [place], [phone] Ordered: Referrals: [facility] Providers : Cupola Man. Blanca Conway ordered Referral Referred To: Blanca Conway [address] [place], [phone] Ordered: Referrals: [facility] Providers : Cupola Man. Blanca Conway. Evaluate and treat ordered Future Order: Radiology Order Ze iss Cirrus HD-OCT DIMPLE ([id number]), Sent on: Sent Future Order: Radiology Order Oc ulus Pentacam DIMPLE ([id number]), Sent on: Sent Future Order: Radiology Order Ma rco/Nidek OPD-Scan III DIMPLE ([id number]), Sent on: Sent Future Order: Radiology Order Taylor ag-Tong Lenstar LS-900 DIMPLE ([id number]), Sent on: Sent History Of Present Illness Encounter Date Complaint [...] has a FBS. Slight pain. She continues Igpl-Ybvn-Vngb TID OS. OD scheduled 07/13/2020. TORIC/ORA DISTANCE. [...] at the headlight. Ref by Dr. Man STODDARD BAT 20/100 OD, 20/LP OS Functional Status Date Functional Assessmen t No Information Instructions Date Instruction Additional Infor mation Impression/Plan Related to Pseud oaphakia Impression/Plan Related to Prese nce of intraocular lens Impression/Plan Related to Pseud oaphakia Impression/Plan Related to Age-r elated nuclear cataract, bilateral Impression/Plan Related to Squam ous blepharitis left upper eyelid Impression/Plan Related to [place] tochalasis of left upper eyelid Impression/Plan Related to Dry e ye syndrome of bilateral lacrimal glands Impression/Plan Related to Age-r elated nuclear cataract, bilateral Impression/Plan Related to Type 2 diabetes mellitus without complication, unspecified whether terminal gauger insulin use Assessments Type Assessment Date assessment Pseudoaphakia Patient Care Teams Name Effective Dates (start - stop) Status Members No Information
--- OUTSIDE RECORDS SUMMARY | 2024-07-26 14:11 | XMS_ITS | Encounter Summary ---
Author Organization [facility] Address [address] [place] [address] Care Team Providers Care Tub Chucker Name Role Phone Peter Padron MD Primary Care Provider Encounter Details Date Type Department Care Team (Late st Contact Info) Description 01/08/2014 Telephone [facility] Radiation Oncology Preet Recio [address] [place] [address] Tiffanie Collins RN Social History [...] Info) Description 09/15/2024 10:45 AM CDT Appointment [facility] Preet Recio [address] [place] [address] [place] [address] [place] [address] 09/15/2024 11:45 AM CDT Office Visit [facility] Breast Surgery Preet Recio [address] [place] [address] [place] [address] [facility] [address] [place] [address] documented as of this encounter Visit Diagnoses Not on filedocumented in this encounter Care Teams Tub Chucker Relationship Specialty Start Date End Date Peter Padron MD [address] [facility] [address] [facility] [address] ROSA [address] [place] [address] PCP - General Internal Medicine 10/21/13 01/26/24 documented as of this encounter
--- OUTSIDE RECORDS SUMMARY | 2024-07-26 14:11 | XMS_ITS | Clinical Summary ---
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 Patient is scheduled for repeat colonoscopy on 06/29/2024 freestyle mary 2 continuous glucose monitoring device 10/22/2022 Assessment & Plan (06/04/2024 2:11 PM MAINTENANCE INSTRUCTOR): Continuous glucose monitor (cgm) applied from 05/22/2024 [...] hypoglycemia Assessment & Plan (06/05/2023 4:09 PM MAINTENANCE INSTRUCTOR): Continuous glucose monitor (cgm) applied from 05/23/2023 [...] needed Assessment & Plan (05/05/2020 4:57 PM MAINTENANCE INSTRUCTOR): Meclizine p.r.n.. Call back for vestibular therapy if needed. Assessment & Plan (04/20/2020 8:18 PM MAINTENANCE INSTRUCTOR): Meclizine p.r.n. call back for vestibular therapy [...] today Assessment & Plan (05/26/2021 5:41 PM MAINTENANCE INSTRUCTOR): Continue calcium vitamin-D weight-bearing exercise repeat bone density scan per body shop manager recommendations. Assessment & Plan (04/20/2020 8:17 PM MAINTENANCE INSTRUCTOR): Calcium, vitamin-D, weight-bearing exercise repeat bone density scan per body shop manager recommendations. Assessment & Plan (10/03/2019 1:28 PM CDT): Calcium, vitamin-D, weight-bearing exercise repeat bone density imaging with her body shop manager. Assessment & Plan (01/27/2019 2:21 PM CDT): Calcium, vitamin-D, weight-bearing exercise. She is to discussed repeat imaging with her body shop manager. Assessment & Plan (02/01/2017 5:09 PM [...] venlafaxine. Assessment & Plan (04/20/2020 8:18 PM MAINTENANCE INSTRUCTOR): Reduce venlafaxine to 37.5 mg daily. If [...] -continue follow up with breast surgeon and body shop manager as directed Assessment & Plan (08/26/2023 3:30 PM CDT): -continue follow up with breast surgeon and body shop manager as directed -screening mammogram ordered today Assessment & Plan (01/27/2019 2:22 PM CDT): Follow-up with her breast surgeon and body shop manager as they direct. Assessment & Plan (12/15/2017 2:48 PM CDT): Follow-up with her breast surgeon as a direct. The also manage her bone density scans. Assessment & Plan (02/01/2017 5:09 PM CDT): Follow-up with her specialist over in [place] who also manages her bone density scans [...] year. Assessment & Plan (04/20/2020 8:16 PM MAINTENANCE INSTRUCTOR): Continue current supplementation and check level in [...] diet Assessment & Plan (06/05/2023 4:05 PM MAINTENANCE INSTRUCTOR): This is a chronic condition which is [...] prescribed. Assessment & Plan (06/28/2022 1:15 PM MAINTENANCE INSTRUCTOR): This is a chronic condition which is at goal of <140/90 Personally reviewed labs. Continue lisinopril. Avoid caffeine, caffeine will raise blood pressure and excessive alcohol consumption. Monitor your weight and B/P. Encouraged to take medications as prescribed. Assessment & Plan (05/16/2022 12:47 PM MAINTENANCE INSTRUCTOR): Recommend DASH diet, heart-healthy lifestyle, exercise. Discussed [...] prescribed. Assessment & Plan (05/26/2021 5:40 PM MAINTENANCE INSTRUCTOR): Well controlled on the current regimen. Avoidance of salt, proper body weight, and routine exercise recommended. Assessment & Plan (08/11/2020 2:44 PM CDT): Well controlled on the current regimen. Avoidance of salt, proper body weight, and routine exercise recommended. Assessment & Plan (05/05/2020 4:56 PM MAINTENANCE INSTRUCTOR): Well controlled on the current regimen. Avoidance of salt, proper body weight, and routine exercise recommended. Assessment & Plan (04/20/2020 8:19 PM MAINTENANCE INSTRUCTOR): Blood pressure stable. Patient noncompliant with medications [...] bone loss and vit B12 deficiency with long-term use of PPI with pt, would like to remain on medication at this time Assessment & Plan (04/20/2020 8:18 PM MAINTENANCE INSTRUCTOR): Continue current PPI and the patient is [...] eye exam. last dilated eye exam was [facility] Monofilament foot exam completed. Protective senses [...] exam Assessment & Plan (06/05/2023 4:08 PM MAINTENANCE INSTRUCTOR): This is a chronic condition which is [...] Reports numbness to great toes. Personally reviewed [facility] eGFR- 68 Kidney function- abnormal Urine microalbumin/creatinine ratio - at goal <30 treated with lisinopril B/P today- at goal of <140/90. continue lisinopril Personally reviewed lipid panel. Not at Goal of less than 70. Continue pravastatin Assessment & Plan (06/28/2022 1:29 PM MAINTENANCE INSTRUCTOR): This is a chronic condition which is [...] No history of macrovascular disease - CVA, NV. Continuous glucose monitor (cgm) applied from 06/15/2022 [...] blood sugar 4 times a day with [facility] mary 2. Encouraged annual eye exam. Monofilament [...] No history of macrovascular disease - CVA, NV. Continuous glucose monitor (cgm) applied from 02/14/2022 [...] No history of macrovascular disease - CVA, NV. Assessment & Plan (08/17/2021 3:43 PM CDT): [...] No history of macrovascular disease - CVA, NV. Assessment & Plan (07/05/2021 2:04 PM MAINTENANCE INSTRUCTOR): This is a chronic condition which is [...] No history of macrovascular disease - CVA, NV. Assessment & Plan (06/07/2021 4:41 PM MAINTENANCE INSTRUCTOR): This is a chronic condition which is [...] No history of macrovascular disease - CVA, NV. Assessment & Plan (05/26/2021 5:41 PM MAINTENANCE INSTRUCTOR): A1c above goal. Reduce her Tresiba to 34 units due to of morning hypoglycemia. She needs any more regular with her mealtime insulin. She does not want to drive to [place] for her Endocrinology appointments anymore. Referral to Kemi Goldne. Assessment & Plan (08/11/2020 2:45 PM CDT): A1c much improved. Continue her Tresiba I have urged her to start her NovoLog pre meal insulin as well. Follow-up with her spine nurse as they direct. Continue work on diet exercise weight loss. Assessment & Plan (04/20/2020 8:17 PM MAINTENANCE INSTRUCTOR): A1c poorly controlled. Patient noncompliant with diet [...] Get a nutrition scale, Perfect Portions from [employer] to help with carb counting. - Make [...] her poor glycemic control. Follow-up with her spine nurse as they direct. Assessment & Plan (01/27/2019 2:21 PM CDT): A1c remains grossly uncontrolled. She must check blood sugars 3 times daily record and turn into her spine nurse. She is be more compliant with diet [...] exercise, weight loss. Follow up with her spine nurse as he directs. Patient is aware that [...] exercise and weight loss. Follow up her spine nurse as he directs. Check blood sugars 3 [...] relief. Assessment & Plan (05/26/2021 5:41 PM MAINTENANCE INSTRUCTOR): Patient is compliant with the CPAP machine and gets symptomatic relief. Assessment & Plan (04/20/2020 8:17 PM MAINTENANCE INSTRUCTOR): Patient is compliant with the CPAP machine [...] 08/26/2023 Assessment & Plan (05/05/2020 4:55 PM MAINTENANCE INSTRUCTOR): Rest ice gentle stretching exercises, meloxicam, physical [...] needed Assessment & Plan (05/26/2021 5:42 PM MAINTENANCE INSTRUCTOR): We discussed a comprehensive list of medical [...] needed. Assessment & Plan (04/20/2020 8:19 PM MAINTENANCE INSTRUCTOR): We discussed a comprehensive list of medical [...] colonoscopy. At low risk for fall 01/27/2019 04/ 024 Assessment & Plan (02/19/2023 11:04 AM CDT): Timed get up and go test normal. Assessment & Plan (05/26/2021 5:41 PM MAINTENANCE INSTRUCTOR): Timed get up and go test normal. Assessment & Plan (04/20/2020 8:19 PM MAINTENANCE INSTRUCTOR): Timed get up and go test normal. [...] visit. Assessment & Plan (05/26/2021 5:41 PM MAINTENANCE INSTRUCTOR): TSH and free T4 normal and she is without symptoms. Check again 1 year. Assessment & Plan (08/11/2020 2:45 PM CDT): She remains asymptomatic will check TSH and free T4 before next visit. Assessment & Plan (04/20/2020 8:17 PM MAINTENANCE INSTRUCTOR): Asymptomatic and will check thyroid levels once [...] booster every 10 years. Yearly mammogram. Father body shop manager for Pap smears as they direct. [...] spasms. Assessment & Plan (06/05/2023 4:04 PM MAINTENANCE INSTRUCTOR): >>ASSESSMENT AND PLAN FOR HYPERLIPIDEMIA WRITTEN ON 02/01/2017 5:08 PM BY MARY PADRON MD LDL much better controlled on atorvastatin. Assessment & Plan (06/05/2023 4:04 PM MAINTENANCE INSTRUCTOR): >>ASSESSMENT AND PLAN FOR HYPERLIPIDEMIA WRITTEN ON 12/15/2017 2:48 PM BY MARY PADRON MD Continue atorvastatin. Assessment & Plan (06/05/2023 4:04 PM MAINTENANCE INSTRUCTOR): >>ASSESSMENT AND PLAN FOR HYPERLIPIDEMIA WRITTEN ON 07/21/2018 5:00 PM BY MARY PADRON MD Hold her atorvastatin to see if this helps her lower extremity muscle spasms. Continue Zetia for now Assessment & Plan (06/05/2023 4:04 PM MAINTENANCE INSTRUCTOR): >>ASSESSMENT AND PLAN FOR HYPERLIPIDEMIA WRITTEN ON 01/27/2019 2:22 PM BY MARY PADRON MD Well controlled on current therapy and will check a lipid panel and LFTs in 6 months. Assessment & Plan (06/05/2023 4:04 PM MAINTENANCE INSTRUCTOR): >>ASSESSMENT AND PLAN FOR HYPERLIPIDEMIA WRITTEN ON 10/03/2019 1:29 PM BY MARY PADRON MD She needs to make sure that she is taking her Zetia and atorvastatin. Assessment & Plan (06/05/2023 4:04 PM MAINTENANCE INSTRUCTOR): >>ASSESSMENT AND PLAN FOR HYPERLIPIDEMIA WRITTEN ON 10/26/2019 1:02 PM BY MIRZA MONTALVO MD Recheck lipids after A1c and glucoses correct. The combination of lower glucoses and GLP1 may have a positive effect on TG in particular, also TC. Assessment & Plan (06/05/2023 4:04 PM MAINTENANCE INSTRUCTOR): >>ASSESSMENT AND PLAN FOR HYPERLIPIDEMIA WRITTEN ON 05/05/2020 3:24 PM BY MARY PADRON MD Non compliant with her atorvastatin and would recommend restarting and the rationale for this discussed at length. Long-term risks posed her health with failure to do so discussed at length. Assessment & Plan (06/05/2023 4:04 PM MAINTENANCE INSTRUCTOR): >>ASSESSMENT AND PLAN FOR HYPERLIPIDEMIA WRITTEN ON 02/22/2020 12:24 PM BY MIRZA MONTALVO MD LDL is way too high for someone with T2DM. Please do the following: - Take atorvastatin every day - Take ezetimibe every day - Discuss with Dr. Padron next steps and recheck. Assessment & Plan (06/05/2023 4:04 PM MAINTENANCE INSTRUCTOR): >>ASSESSMENT AND PLAN FOR HYPERLIPIDEMIA WRITTEN ON 05/05/2020 4:56 PM BY MARY PADRON MD She has not filled Crestor and atorvastatin due to lower extremity complaints. Try Zetia alone. Try pravastatin next visit if needed. Assessment & Plan (06/05/2023 4:04 PM MAINTENANCE INSTRUCTOR): >>ASSESSMENT AND PLAN FOR HYPERLIPIDEMIA WRITTEN ON 08/11/2020 2:44 PM BY MARY PADRON MD Let us try pravastatin Saturday and Saturday and call back if she develops any side effects and will discontinue it at that point. Continue Zetia. Assessment & Plan (06/05/2023 4:04 PM MAINTENANCE INSTRUCTOR): >>ASSESSMENT AND PLAN FOR HYPERLIPIDEMIA WRITTEN ON 05/26/2021 5:41 PM BY MARY PADRON MD Stable on Zetia and pravastatin Assessment & Plan (06/05/2023 4:04 PM MAINTENANCE INSTRUCTOR): >>ASSESSMENT AND PLAN FOR HYPERLIPIDEMIA WRITTEN ON [...] prescribed. Assessment & Plan (06/05/2023 4:04 PM MAINTENANCE INSTRUCTOR): >>ASSESSMENT AND PLAN FOR HYPERLIPIDEMIA WRITTEN ON [...] prescribed. Assessment & Plan (06/05/2023 4:04 PM MAINTENANCE INSTRUCTOR): >>ASSESSMENT AND PLAN FOR HYPERLIPIDEMIA WRITTEN ON [...] prescribed. Assessment & Plan (06/05/2023 4:04 PM MAINTENANCE INSTRUCTOR): >>ASSESSMENT AND PLAN FOR HYPERLIPIDEMIA WRITTEN ON 12/17/2022 9:35 AM BY MARY PADRON MD Failed 3 different statins. Recommend diet exercise and retry Zetia and check lipids before next visit. Assessment & Plan (06/05/2023 4:04 PM MAINTENANCE INSTRUCTOR): This is a chronic condition which is not at goal of LDL less than 70 Continue Zetia. Does not tolerate statins Encouraged to eat healthy, include fresh fruits and vegetables daily and avoid eating fried foods more than once per week. Encouraged to take medications as prescribed. Assessment & Plan (06/05/2023 4:04 PM MAINTENANCE INSTRUCTOR): >>ASSESSMENT AND PLAN FOR TYPE 2 DIABETES MELLITUS WITH HYPERLIPIDEMIA (HCC) WRITTEN ON 02/19/2023 11:16 AM BY MARY PADRON MD A1c just above goal but much improved from her baseline over the past few years. Follow-up with her spine nurse as they direct. >>ASSESSMENT AND PLAN FOR [...] prescribed. Assessment & Plan (06/28/2022 1:14 PM MAINTENANCE INSTRUCTOR): This is a chronic condition which is [...] prescribed. Assessment & Plan (06/05/2023 4:04 PM MAINTENANCE INSTRUCTOR): >>ASSESSMENT AND PLAN FOR TYPE 2 DIABETES [...] Date Type Department Care Team Description 06/29/2024 12:01 PM MAINTENANCE INSTRUCTOR Anesthesia [facility] [address] [place] [address] Jason Lucero MD [place], Neal P., STONE GLUER 06/29/2024 11:30 AM MAINTENANCE INSTRUCTOR - 06/29/2024 12:00 PM MAINTENANCE INSTRUCTOR Surgery [address] [address] Herrera Caceres, DO COLON REMOVAL SNARE 06/29/2024 10:28 AM MAINTENANCE INSTRUCTOR - 06/29/2024 1:21 PM MAINTENANCE INSTRUCTOR Hospital Encounter [address] [id number] Herrera Caceres, DO Hx of colonic polyps Discharge Disposition: Discharge to home or self care 06/29/2024 Results Follow-Up [facility] Primary Care at [address] [place] [address] Kinjal Domingo NP 06/23/2024 Telephone [facility] Gastroenterology at [address] [place] [address] Joanna Licona MA 06/04/2024 1:30 PM MAINTENANCE INSTRUCTOR Office Visit [facility] Diabetes Endocrine Care at [address] [place] [address] Kemi Golden NP Type 2 diabetes mellitus with hyperglycemia, with long-term current use of insulin (HCC) (Primary Dx); Hypertension associated with diabetes (HCC); Type 2 diabetes mellitus with hyperlipidemia (HCC); freestyle mary 2 continuous glucose monitoring device 05/06/2024 Telephone [facility] Diabetes Endocrine Care at [address] [place] [address] Kemi Golden NP from Last 3 Months Immunizations Immunization Administration Dates Next Due COVID-19 mRNA (PFIZER) [...] History Surgery Date Site/Laterality Comments SECTION section BREAST LUMPECTOMY 01/07/2014 Right Lumpectomy SECTION BREAST SURGERY 10/27/2018 - 11/26/2018 Left BREAST BIOPSY 10/09/2013 Right malignant BREAST BIOPSY 12/05/2023 Right COLONOSCOPY 12/28/2016 - 01/26/2017 VAGINA SURGERY Tear? COLONOSCOPY 06/29/2024 Medical History Medical History Date Comments Adenomatous colon polyp CRISTELA (generalized anxiety disorder) MDD (major depressive disorder) Breast cancer (HCC) RTX DDD (degenerative disc disease), lumbar DM (diabetes mellitus) (HCC) HTN (hypertension) HLD (hyperlipidemia) Hypothyroid GERD (gastroesophageal reflux disease) GUICHO (obstructive sleep apnea) Vitamin D deficiency BPPV (benign paroxysmal positional vertigo) Family History Medical History Relation Name Comments [...] than three times a week 05/13/2020 Attends [employer] Services Not on file 05/13 Active Member [...] on file Legal Sex Female 7:03 PM MAINTENANCE INSTRUCTOR Gender Identity Not on file Sexual Orientation Not on file Obstetrics History Para Term AB IAB SAB Ectopic Multiple Livin g Live Births 2 2 2 Date Outcome GA Total Labor Labor/2nd/3rd Weight Sex Type Anes PTL Rosa A1 A5 Name Clin Term Term Last Filed Vital Signs Vital Sign Reading Time Taken Comments Blood Pressure 96/53 06/29/2024 1:01 PM MAINTENANCE INSTRUCTOR Pulse 67 06/29/2024 1:01 PM MAINTENANCE INSTRUCTOR Temperature 36.8 C (98.3 F) 06/29/2024 1:01 PM MAINTENANCE INSTRUCTOR Respiratory Rate 16 06/29/2024 1:01 PM MAINTENANCE INSTRUCTOR Oxygen Saturation 100% 06/29/2024 1:01 PM MAINTENANCE INSTRUCTOR Inhaled Oxygen Concentration - - Weight 64.4 kg (142 lb) 06/29/2024 10:49 AM MAINTENANCE INSTRUCTOR Height 149.9 cm (4' 11 ) 06/29/2024 10:49 AM MAINTENANCE INSTRUCTOR Body Mass Index 28.68 06/29/2024 10:49 AM MAINTENANCE INSTRUCTOR Plan of Treatment Health Maintenance Due Date Last Done Comments Hepatitis B Screening 1973 Zoster Vaccine (1 of 2) 2003 DTaP/Tdap/Td Vaccine (2 - Td or Tdap) 05/30/2019 05/30/2009 Covid-19 Vaccine (2023-2 5 season) 2023 01/14/2023, 05/25/2022, 05/25/2022, Additional history exists Influenza Vaccine (#1) 2023 , 05/25/2022, 05/26/2021, Additional history exists Pneumococcal vaccine 65+ (3 of 3 - PCV20 or PCV21) 01/28/2024 01/27/2019, 03/31/2015 Breast Cancer Screening-Mammogram 10/16/2024 10/17/2023, 12/25/2021, 12/25/2021, Additional history exists Hemoglobin A1C 12/02/2024 06/04/2024, 04/2023, 06/05/2023, Additional history exists Albumin Creatinine Ratio, Urine 01/27/2025 01/28/2024, 02/12/2023, 01/22/2022, Additional history exists Foot Exam 01/27/2025 01/28/2024, 10/2023, 01/29/2023, Additional history exists Lipid Panel 01/27/2025 01/28/2024, 01/27, 01/22/2022, Additional history exists eGFR 01/27/2025 01/28/2024, 01/27, 01/22/2022, Additional history exists Depression Screening 02/25/2025 02/26/2024, 08/26/2023, 02/19/2023, Additional history exists Well Visit 65+ 02/25/2025 02/26/2024, 01/28, 05/26/2021, Additional history exists Fall Risk Assessment 06/29/2025 06/29/2024, 02/26/2024, 08/26/2023, Additional history exists Osteoporosis Screening-Bone Density Scan 10/16/2025 10/17/2023, 01/21/2014, 01/21/2014, Additional history exists Dilated Eye Exam 12/11/2025 12/12/2023, , 10/28/2023, Additional history exists Colon Cancer Screening-Colonoscopy 06/30/2027 06/29/2024, 01/24/2017, 10/06/2010, Additional history exists Hepatitis C Screening Completed 07/16/2016, 017 Colon Cancer Screening-CT Colonography Discontinued 06/29/2024, 01/24/2017, 10/06/2010, Additional history exists Colon Cancer Screening-DNA Stool Discontinued 06/29/2024, 01/24/2017, 10/06/2010, Additional history exists Colon Cancer Screening-FIT Discontinued 06/29, 01/24/2017, 10/06/2010, Additional history exists Colon Cancer Screening-Sigmoidoscopy Discontinued 06/29/2024, 01/24/2017, 10/06/2010, Additional history exists Medical Devices Implanted Type Area Commercial Roofing Estimator Device Identifier Shelf Expiration Date Model / Serial / Lot Bard Peripheral Vascular Ultraclip Bard 17ga 10cm 2 Trigger Permanent Ultrasound [id number] - [id number] - [id number] Implanted:Qty: 1 on 12/05/2023 by Davian Banks MD at [facility] Breast Right: Breast Bard Peripheral Vascular 09/23/2025 [id number] / [id number] / [id number] Description:Implanted Right Breast 8:00 area 5 cmfn Procedures Procedure Name Priority Date/Time Associated Diagnosis Comments SURGICAL PATHOLOGY STAT 06/29/2024 1: 21 PM MAINTENANCE INSTRUCTOR Hx of colonic polyps ENDO ADD ON COLON BIOPSY 06/29/2024 11:56 AM MAINTENANCE INSTRUCTOR Hx of colonic polyps COLON REMOVAL SNARE 06/29/2024 1 1:56 AM MAINTENANCE INSTRUCTOR Hx of colonic polyps POCT GLUCOSE DEVICE Routine 06/29/2024 1 1:47 AM MAINTENANCE INSTRUCTOR COLONOSCOPY 06/29/2024 10:34 AM MAINTENANCE INSTRUCTOR POCT HEMOGLOBIN A1C Routine 06/04/2024 1 :41 PM MAINTENANCE INSTRUCTOR Type 2 diabetes mellitus with hyperglycemia, with long-term current use of insulin (HCC) POCT GLUCOSE Routine 06/04/2024 1:41 PM MAINTENANCE INSTRUCTOR Type 2 diabetes mellitus with hyperglycemia, with [...] Results * Surgical pathology (06/29/2024 1:21 PM MAINTENANCE INSTRUCTOR) Tissue (Polyp(s), colon/colorectal, esophageal, gastric) 06/29/2024 12:31 PM MAINTENANCE INSTRUCTOR Tissue (Polyp(s), colon/colorectal, esophageal, gastric) 06/29/2024 12:31 PM MAINTENANCE INSTRUCTOR Tissue (Polyp(s), colon/colorectal, esophageal, gastric) 06/29/2024 12:31 PM MAINTENANCE INSTRUCTOR Narrative PATHOLOGY [facility] - 07/01/2024 3:48 PM MAINTENANCE INSTRUCTOR EPIC results best viewed via link to PDF [facility] Department of Pathology [address] [place] [id number] Note to Patients: This report may contain [...] Final Report Patient Name: ANYA BHATIA Address: [address] [place] [address] , [place] [address]- Gender: F : 1955 (Age: 69) Service: Gastro Location: [facility] Hospital #: [id number] Patient Type: [facility] Taken: 06/29/2024 Received: 06/30/2024 Accessioned: 06/30/2024 Reported: 07/01/2024 Physician(s):Dr. Herrera Caceres, D.O. Diagnosis: A. Colon, cecum, biopsy: - Tubular [...] submitted in three formalin containers labeled ANYA BHATIA . A. The first container is labeled [...] and 3 mm. All in C. T.A. Kanchan Bonilla, Grace./Nicol Sanders M.D. REPORT IMAGES AND SCANNED DOCUMENTS, IF INCLUDED, ONLY VIEWABLE IN PDF VERSION OF REPORT The performance characteristics of some immunohistochemical stains, fluorescence in-situ hybridization tests and immunophenotyping by flow cytometry cited in this report (if any) were determined by the Surgical Pathology Department at [facility] as part of an ongoing quality improvement analyst program and in compliance with federally mandated [...] characteristics determined by the Surgical Pathology Department [facility]. It has not been cleared or approved by the U. S. Food and Drug Administration. Note for decalcified specimens: This assay has not been validated on decalcified tissues. Results should be interpreted with caution given the possibility of false negativity on decalcified specimens us Herrera Caceres DO LAB PATHOLOGY ORDERABLES Final Result PATHOLOGY [facility] [address] [place] [address] * POCT glucose (06/29/2024 11:47 AM MAINTENANCE INSTRUCTOR) Glucose, POC 135 70 - 199 mg/dL Blood 06/29/2024 11:4 7 AM MAINTENANCE INSTRUCTOR 06/29/2024 11:47 AM MAINTENANCE INSTRUCTOR us Herrera Caceres DO LAB POCT ORDERABLES - DEVICE F inal Result SAMANTA TOTH YMRIAM 1 [facility] Department [place] [address] * Colonoscopy (06/29/2024 10:34 AM MAINTENANCE INSTRUCTOR) Anatomical Region Laterality Modality Other Narrative Procedure Note Herrera Caceres DO - 06/29/2024 10:34 AM CST [facility] Patient Name: Anya Bonillaacalone Procedure Date: 06/29/2024 10:34 AM Date of : 1955 Admit Type: Outpatient Age: 69 Gender: Female Attending MD: Herrera Caceres D.O. Room: [facility] ENDOSCOPY ROOM 2 Note Status: Finalized Patient [...] passed under direct vision. The Pediatric Colonoscope [id number] was introduced through the anus and advanced [...] 10:34 AM Procedure Code(s): --- Professional --- 73842, Colonoscopy, flexible; with removal of tumor(s), polyp(s), or other lesion(s) by snare technique 66425, 59, Colonoscopy, flexible; with biopsy, single or multiple --- Technical --- 27502, Colonoscopy, flexible; with removal of tumor(s), polyp(s), or other lesion(s) by snare technique 96904, 59, Colonoscopy, flexible; with biopsy, single or [...] neoplasm of descending colon CPT copyright 2020 [employer]. All rights reserved. The codes documented in this report are preliminary and upon interventional physiatrist reviewmay be revised to meet current compliance requirements. Recognized by the [employer] for promoting quality in endoscopy us Herrera Caceres DO ENDOSCOPY PROCEDURES Final Res ult * (ABNORMAL) POCT hemoglobin A1c (06/04/2024 1:41 PM MAINTENANCE INSTRUCTOR) Hemoglobin A1C, POC 8.3 4.0 - 5.6 % Blood 06/04/2024 1:41 PM MAINTENANCE INSTRUCTOR Kemi Golden NP POINT OF CARE TEST ORDERABLES F inal Result * POCT glucose (06/04/2024 1:41 PM MAINTENANCE INSTRUCTOR) Glucose Blood, POC 204 mg/dL Blood 06/04/2024 1:41 PM MAINTENANCE INSTRUCTOR Kemi Golden NP POINT OF CARE TEST [...] LAB BLOOD ORDERABLES Final Resu lt SAMANTA [id number] Department [place] [address] * (ABNORMAL) Albumin Creatinine Ratio, [...] CDT 01/28/2024 6:22 PM CDT us Kemi Golden BELT MAKER HELPER LAB URINE ORDERABLES Final Resu lt SAMANTA [id number] [address] Department [place] [address] * (ABNORMAL) Lipid panel (01/28/2024 2:44 PM [...] 3. Cyrus Rocha et al. YOSELYN Cardiol. 2019August 27;5(5):540-548. doi: [email or web address] Current Interpretive Data was [...] BLOOD ORDERABLES Final Resu lt SAMANTA JENKINS [address] Department [place] [address] * (ABNORMAL) Diabetic Eye Exam (12/12/2023) us Generic External Data Provider [facility] MAINTENANC E Final Result * (ABNORMAL) Screening [...] or other suspicious findings in either breast. 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 [facility] of low bone mineral density may [...] Trell Arias M.D. MF: REGINA Report ID: [id number] Reading Location: [place] [address] Kinjal Aldanaman KEN IMG DXA PROCEDURES Final Res ult * DIABETES FOOT EXAM (03/08/2017) [facility] Diabetic Foot Exam Unknown Result [facility] Historical Provider HEALTH MAINTENANCE Final Result * (ABNORMAL) Serum Hepatitis C ab (07/16/2016 10:29 AM CDT) [facility] HCV ab REACTIVE( A) NON-REACT INOCENCIO CDR [...] Recently Relevant to Health Maintenance Insurance MEDICARE [facility] MEDICARE [facility] MEDICARE [facility] Advance Directives For more information, please contact: [phone] * Full Code (Latest Code Status on File) Date Activated Date Inactivated Comments 06/29/2024 10:41 AM 06/29/2024 5:26 PM * Full Code Date Activated Date Inactivated Comments 06/29/2024 10:41 AM 06/29/2024 10:41 AM Care Teams 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
--- OUTSIDE RECORDS SUMMARY | 2024-07-26 14:16 | XMS_ITS | Continuity of Care Document ---
Author Organization [facility] Address [address] [facility] [address] [place] [address] Phone Care Team Providers Care Pharmaceutical Engineer Name Role Phone David OD OD, [place] [...] STAGE TORIC IOL COSMETIC NMN OFFICE/OUTPATIENT VISIT, [facility] PHARM[facility] 2 EYES Advance Directives Directive Yes / No Effective Date File Name No Information Encounters Encounter Description Practice Location Reason(s) For Visit Diagnoses Date Provider Providers Copied on Encounter [facility], [address] [place] [address], [id number], tel:[phone] OPH CONSULT DIMPLE KILGORE 1 week PO OD (chief complaint) Pseudoaphakia 1 Derheimer OD [place]. [address], [address], [place], [place], [id number], [place]. tel:[phone] Referring Provider: Peter Padron MD, [address] [place] [address] [address], [place], [address]. tel:[phone] [facility], [address] [place] [address], [id number], tel:[phone] OPH CONSULT DIMPLE KILGORE Post-Op (chief complaint) Presence of intraocular lens 1 [place] Cardoso. [address], [place], [place], [id number], [place]. tel:[phone] Referring Provider: Peter Padron MD, [address], [place], [address]. tel:[phone] [facility], [address] [place] [address], [id number], [place] tel:[phone] [address] [place] [address] [facility] [place] No Information 1 [place] Cardoso. [address], [place], [place], [id number], [place]. tel:[phone] Referring Provider: Walker Ambrosio, [address], [place], [address] . tel:[phone] [facility], [address] [place] [address], [id number], [place] tel:[phone] OPH CONSULT DIMPLE KILGORE post op (chief complaint) Pseudoaphakia 1 Derheimer OD [place]. [address], [place], [place], [id number], [place]. tel:[phone] Referring Provider: Peter Padron MD, [address], [place], [address]. tel:[phone] [facility], [address] [place] [address], [id number], [place] tel:[phone] OPH CONSULT DIMPLE KILGORE Post-Op (chief complaint) Age-related nuclear cataract, bilateral 1 [place] Cardoso. [address], [address], [id number], [place]. tel:[phone] Referring Provider: Peter Padron MD, [address], [place], [address]. tel:[phone] [facility], [address] [place] [address], [id number], [place] tel:[phone] [address] [place] [address] [facility] No Information 0 1 [place] Cardoso. [address], [place], [place], [id number], [place]. tel:[phone] Referring Provider: Walker Ambrosio, [address], [place], [address] . tel:[phone] [facility], [address] [place] [address], [id number], tel:[phone] OPH CONSULT DIMPLE KILGORE No Information 1 [place] Cardoso. [address], [place], [place], [id number], [place]. tel:[phone] Referring Provider: Peter Padron MD, [address], [place], [address]. tel:[phone] OFFICE/OUTPA TIENT VISIT, [facility], [address] [place] [address], [place], [place], [id number], tel:[phone] OPH CONSULT DIMPLE KILGORE Cataract eval (chief complaint) Diabetic eye exam (chief complaint) Age-related nuclear cataract, bilateralDry eye syndrome of bilateral lacrimal glandsDermatoch alasis of left upper eyelidSquamous blepharitis left upper eyelidType 2 diabetes mellitus without complication, unspecified whether fpc insulin use 1 [place] Cardoso. [address], [place], [place], [id number], . tel:[phone] Referring Provider: Peter Padron MD, [address], [place], [address]. tel:[phone] Family History Family Member Type Diagnosis Age [...] [facility] Providers : Wet End Supervisor (related to Pseudoaphakia) ordered Referral Referred To: Blanca Conway [address] [place], [phone] Ordered: Referrals: [facility] Providers : Wet End Supervisor. Blanca Conway ordered Referral Referred To: Blanca Conway [address] [place], [phone] Ordered: Referrals: [facility] Providers : Wet End Supervisor. Blanca Conway. Evaluate and treat ordered Future Order: Radiology Order Ze iss Cirrus HD-OCT DIMPLE ([id number]), Sent on: Sent Future Order: Radiology Order Oc ulus Pentacam DIMPLE ([id number]), Sent on: Sent Future Order: Radiology Order Ma rco/Nidek OPD-Scan III DIMPLE ([id number]), Sent on: Sent Future Order: Radiology Order Taylor ag-Tong Lenstar LS-900 DIMPLE ([id number]), Sent on: Sent History Of Present Illness [...] has a FBS. Slight pain. She continues Dzay-Ficn-Julo TID OS. OD scheduled 07/13/2020. TORIC/ORA DISTANCE. She was referred by ARLYN- Dr. Conway. Diabetic eye exam The patient is present for evaluation of Diabetic eye exam in the right eye and left eye. It occurs all the time. It affects [facility] not affected. The condition is stable. A1C: 9.5 x 2 months agoBS: 103 todayDrLadan Padrno Cataract eval The 65 year old female [...] No Information Instructions Date Instruction Additional Infor yogesh Impression/Plan Related to Pseud oaphakia Impression/Plan Related to Prese nce of intraocular lens Impression/Plan Related to Pseud oaphakia Impression/Plan Related to Age-r elated nuclear cataract, bilateral Impression/Plan Related to Type 2 diabetes mellitus without complication, unspecified whether long chain beamer insulin use Impression/Plan Related to Age-r elated nuclear cataract, bilateral Impression/Plan Related to Dry e ye syndrome of bilateral lacrimal glands Impression/Plan Related to [place] tochalasis of left upper eyelid Impression/Plan Related to Squam ous blepharitis left upper eyelid Assessments Type Assessment Date assessment Pseudoaphakia Patient Care Teams Name Effective Dates (start - stop) Status Members No Information
[2024-07-26 14:19] VITALS: BP 131/65; PULSE 90; RESP 20; TEMP 36.8; O2SAT 100
--- NOTE | 2024-07-26 14:49 | ED_ITS ---
HPI - Eye Problem General Chief complaint: Eye Problems Stated complaint: Eye Problem Time Seen by Provider: 07/26/24 14:50 Source: patient Mode of arrival: ambulatory Limitations: no limitations History of Present Illness HPI Narrative: 69-year-old female presents with complaint of tenderness to left upper eyelid with red bump before 5 days. No drainage. Denies vision changes. All systems reviewed and negative except as noted above. Related Data Home Medications ?Medication ?Instructions ?Recorded ?Confirmed ?Last Taken ?Type omeprazole 20 mg tablet,delayed 20 mg PO DAILY 06/02/19 03/30/24 Unknown History release insulin degludec 100 See Rx Instructions .Route .COMPLEX 06/30/22 03/30/24 Unknown History unit-liraglutide 3.6 mg/mL(3 mL) subcutaneous pen (Xultophy 100/3.6) ezetimibe 10 mg tablet 10 mg PO DAILY 11/04/23 03/30/24 Unknown History lisinopril 5 mg tablet 5 mg PO DAILY 11/04/23 03/30/24 Unknown History meclizine 12.5 mg tablet 12.5 mg PO TID PRN Vertigo 03/13/24 03/30/24 Unknown History meloxicam 7.5 mg tablet 7.5 mg PO DAILY 03/13/24 03/30/24 Unknown History Allergies Allergy/AdvReac Type Severity Reaction Status Date / Time latex Allergy Unknown Unknown Verified 07/26/24 14:28 pravastatin AdvReac Intermediate leg cramps Verified 07/26/24 14:28 Review of Systems Review of Systems: CONSTITUTIONAL: Denies fever, chills, or sweats. EYES: Denies visual changes, redness, or discharge. ENT: Denies rhinorrhea, congestion, sore throat, or otalgia. CARDIOVASCULAR: Denies chest pain, palpitations, or edema. RESPIRATORY: Denies cough or dyspnea. GASTROINTESTINAL: Denies abdominal pain, nausea, vomiting, or diarrhea. GENITOURINARY: Denies dysuria or hematuria. SKIN: Denies rash or itching. Reports red bump with tenderness to left upper eyelid. MUSCULOSKELETAL: Denies back pain, joint pain, or myalgia. NEUROLOGIC: Denies headache, numbness, or weakness. PSYCHIATRIC: Denies anxiety or depression. All other systems reviewed are negative, except as documented in HPI. [facility] Past Medical History Medical History HX: breast cancer 2014 Anxiety Diabetes mellitus, type II Rectal polyp HTN (hypertension) HLD (hyperlipidemia) Surgical History Surgical History H/O lumpectomy H/O section Social History Social History Smoking status: Never smoker Second hand tobacco smoke exposure: Yes (As a child) Spiritual care concerns: No Comments At time of signature, agree with nursing past medical, surgical, social and family history. There is no relevant family history pertinent to the presenting complaint. Exam Narrative: GENERAL: This is a well-nourished, well-developed patient, in no apparent distress. HEAD: normocephalic, atraumatic. EYES: PERRL. Sclera And conjunctiva clear/white. Vision is grossly intact. EARS: External ears normal NOSE: External nose normal NECK: Neck supple, non-tender without lymphadenopathy, masses or thyromegaly. CARDIOVASCULAR: Regular rate and rhythm without murmurs, gallops, or rubs. RESPIRATORY: Clear to auscultation. Breath sounds equal bilaterally. No wheezes, rales, or rhonchi. SKIN: warm, Dry, intact with no suspicious rash, good texture and turgor. erythematous pustule to lateral corner left upper eyelid without drainage. Tender on palpation. NEURO: awake, alert, and oriented to person, place and time. There were no obvious focal neurologic abnormalities. EXTREMITIES: No joint tenderness, effusion, or edema noted. Course Course Level of Care: Express Care Visit Vital Signs Vital signs: Vital Signs Temperature 36.8 C 07/26/24 14:19 Pulse Rate 90 07/26/24 14:19 Respiratory Rate 20 07/26/24 14:19 Blood Pressure 131/65 07/26/24 14:19 Pulse Oximetry 100 07/26/24 14:19 Oxygen Delivery Room Air 07/26/24 14:19 Temperature 36.8 C 07/26/24 14:19 Pulse Rate 90 07/26/24 14:19 Respiratory Rate 20 07/26/24 14:19 Blood Pressure 131/65 07/26/24 14:19 Pulse Oximetry 100 07/26/24 14:19 Oxygen Delivery Room Air 07/26/24 14:19 Reviewed MDM - Eye Problem MDM Narrative Medical decision making narrative: will treat left external stye with erythromycin ointment. Please be advised this is a medical document. It is intended for lwpa-rn-fqop communication. It is written in medical language and may contain unfamiliar abbreviations or verbiage. Medical documents are intended to carry relevant information, facts as evident, and the clinical opinion of the practitioner at the time of the encounter. This report may have been done utilizing a voice recognition system. Attempts have been made to correct errors. However, there may be uncorrected grammatical, spelling, and recognition errors present. The file time of this note does not necessarily represent the time of service. Discharge Plan Discharge Clinical Impression: Hordeolum externum left upper eyelid Patient Disposition: Home, Self-Care Condition: Stable Instructions: Antibiotic Form, Erythromycin (Into the eye), Stye (ED) Additional Instructions: Place antibiotic ointment to left eye as prescribed. Wash hands before and after placing antibiotic ointment. Follow-up with primary pharmacist critical care as needed. Patient Language: Indonesian Prescriptions: New erythromycin 5 mg/gram (0.5 %) ointment 1 applic LEFT EYE QID 10 Days Qty: 3.5 0RF No Action omeprazole 20 mg Tablet,Delayed Release (Dr/Ec) 20 mg PO DAILY lisinopril 5 mg tablet 5 mg PO DAILY ezetimibe 10 mg tablet 10 mg PO DAILY Xultophy 100/3.6 100 unit-3.6 mg /mL (3 mL) insulin pen See Rx Instructions .ROUTE .COMPLEX Rx Instructions: PRESCRIBED meloxicam 7.5 mg Tablet 7.5 mg PO DAILY meclizine 12.5 mg Tablet 12.5 mg PO TID PRN (Reason: Vertigo) Follow-up/Referrals: PHYSICIAN NOT ON STAFF,NONSTAFF [Primary Care Provider] - Time of Disposition: 14:55
== END 2024-07-26 15:00 | disposition home or self-care (01) ==
PROVIDERS: Emergency Provider Nurse Practitioner Family
DX: H00.014 Hordeolum externum left upper eyelid (principal); E11.9 Type 2 diabetes mellitus without complications; Z79.4 Long term (current) use of insulin; I10 Essential (primary) hypertension; E78.5 Hyperlipidemia, unspecified; Z85.3 Personal history of malignant neoplasm of breast
CPT/HCPCS: 99213; G0463